=== PATIENT | male | born 1955 | race Caucasian/White ===

== ENCOUNTER 2020-05-21 09:58 | Outpatient (REF) | payer MEDICARE, OTHER, SELFPAY ==
--- NOTE | 2020-05-21 10:04 | US_ITS ---
EXAMINATION: US RETROPERITONEAL COMPLETE (RENAL) CLINICAL INFORMATION: Increased BUN and creatinine. COMPARISON: CT abdomen and pelvis 09/20/2012. X-ray abdomen KUB 06/12/2010 and 05/15/2010. Renal ultrasound 04/08/2010. Ultrasound abdomen 08/21/2008. TECHNIQUE: Real-time imaging of the kidneys and bladder. FINDINGS: RIGHT KIDNEY: 12.9 x 6.9 x 5.8 cm (SAG x AP x TRV). The kidney is normal in size, contour, and echogenicity. Renal cortical thickness is normal. No calculi or focal parenchymal lesions. No hydronephrosis. Scattered vascular calcifications seen in the lateral cortex of the kidney. LEFT KIDNEY: 10.3 x 5.2 x 5.6 cm (SAG x AP x TRV). The kidney is normal in size, contour, and echogenicity. Renal cortical thickness is normal. No calculi or focal parenchymal lesions. No hydronephrosis. There is partial nephrectomy changes. BLADDER: Well distended and normal. Bilateral ureteral jets are demonstrated. Prevoid bladder volume is 291 mL. Postvoid bladder volume is 19.0 mL. Prostate volume 91.2 mL. Difficulty visualizing prostate gland. US/US renal BI IMPRESSION: Partial left nephrectomy changes. There is no echogenic stone seen in either kidney. There is no hydronephrosis. Probable vascular calcifications in the lateral cortex right kidney.
--- NOTE | 2020-05-21 10:05 | US_ITS ---
EXAMINATION: US RETROPERITONEAL COMPLETE (RENAL) CLINICAL INFORMATION: Increased BUN and creatinine. COMPARISON: CT abdomen and pelvis 09/20/2012. X-ray abdomen KUB 06/12/2010 and 05/15/2010. Renal ultrasound 04/08/2010. Ultrasound abdomen 08/21/2008. TECHNIQUE: Real-time imaging of the kidneys and bladder. FINDINGS: RIGHT KIDNEY: 12.9 x 6.9 x 5.8 cm (SAG x AP x TRV). The kidney is normal in size, contour, and echogenicity. Renal cortical thickness is normal. No calculi or focal parenchymal lesions. No hydronephrosis. Scattered vascular calcifications seen in the lateral cortex of the kidney. LEFT KIDNEY: 10.3 x 5.2 x 5.6 cm (SAG x AP x TRV). The kidney is normal in size, contour, and echogenicity. Renal cortical thickness is normal. No calculi or focal parenchymal lesions. No hydronephrosis. There is partial nephrectomy changes. BLADDER: Well distended and normal. Bilateral ureteral jets are demonstrated. Prevoid bladder volume is 291 mL. Postvoid bladder volume is 19.0 mL. Prostate volume 91.2 mL. Difficulty visualizing prostate gland. US/US bladder IMPRESSION: Partial left nephrectomy changes. There is no echogenic stone seen in either kidney. There is no hydronephrosis. Probable vascular calcifications in the lateral cortex right kidney.
== END 2020-05-21 09:59 | disposition home or self-care (01) ==
LOC: HO.HMGCX 09:58
PROVIDERS: PCP Internal Medicine; Visit Provider Internal Medicine Nephrology
DX: R79.89 Other specified abnormal findings of blood chemistry (principal)
CPT/HCPCS: 76775; 76857

== ENCOUNTER 2021-01-23 06:13 | Day surgery (SDC) | payer MEDICARE, OTHER, SELFPAY ==
[2021-01-16 12:14] VITALS: BMI 41.6
--- NOTE | 2021-01-22 10:32 | P.CONAN_ITS ---
Documented by User: Crystal Betancur 01/22/21 10:33 HPI - Anesthesia Eval Consult details Narrative: 65yo M for Colonoscopy with Antibiotics (L SHERLYN 2017) [facility] Past Medical History Medical History Arthritis Back pain Elevated cholesterol Gout HTN (hypertension) Kidney stones TONY on CPAP Surgical History Surgical History History of cystoscopy History of left hip replacement History of lithotripsy History of partial nephrectomy History of surgery on right wrist Hx of arthroscopy of knee Hx of colonoscopy Hx of exploratory laparotomy Social History Social History Are you a primary assisted living care manager to a significant other at home: No Do you presently have visiting nurse or other home services: No Advance Directives: No Advance Directives Information Provided: No Advance Directives on File: No Recently lost weight without trying: No Eating poorly because of decreased appetite: No Nutrition Risks: No Nutritional Risk Meds Allergies Allergy/AdvReac Type Severity Reaction Status Date / Time No Known Allergies Allergy Unverified 01/16/21 12:10 [No Known Allergies*] Home Medications Medication Instructions Recorded Confirmed Last Taken Type acetaminophen [Tylenol] 650 mg PO Q6H PRN 01/16/21 01/16/21 Unknown History albuterol sulfate 2 puff INHALATION Q6H PRN 01/16/21 01/16/21 Unknown History allopurinol 300 mg PO DAILY 01/16/21 01/16/21 Unknown History diazepam 5 mg PO BID PRN 01/16/21 01/16/21 Unknown History lisinopril 20 mg PO DAILY 01/16/21 01/16/21 01/23/21 History nebivolol [Bystolic] 10 mg PO DAILY 01/16/21 01/16/21 01/23/21 History simvastatin 20 mg PO BEDTIME 01/16/21 01/16/21 Unknown History Exam Exam Date and Time: January 22, 2021 1032 Height,Weight and Vital Signs: Height 5 ft 6 in Weight 117.027 kg Assessment and Plan Assessment Anesthesia Assessment: Chart Reviewed Documented by User: Najma Guidry 01/23/21 07:33 [facility] Past Medical History Medical History Arthritis Back pain Elevated cholesterol Gout HTN (hypertension) Kidney stones TONY on CPAP Surgical History Surgical History History of cystoscopy History of left hip replacement History of lithotripsy History of partial nephrectomy History of surgery on right wrist Hx of arthroscopy of knee Hx of colonoscopy Hx of exploratory laparotomy Social History Social History Are you a primary assisted living care manager to a significant other at home: No Do you presently have visiting nurse or other home services: No Advance Directives: No Advance Directives Information Provided: No Advance Directives on File: No Recently lost weight without trying: No Eating poorly because of decreased appetite: No Nutrition Risks: No Nutritional Risk Meds Allergies Allergy/AdvReac Type Severity Reaction Status Date / Time No Known Allergies Allergy Unverified 01/16/21 12:10 [No Known Allergies*] Home Medications Medication Instructions Recorded Confirmed Last Taken Type acetaminophen [Tylenol] 650 mg PO Q6H PRN 01/16/21 01/16/21 Unknown History albuterol sulfate 2 puff INHALATION Q6H PRN 01/16/21 01/16/21 Unknown History allopurinol 300 mg PO DAILY 01/16/21 01/16/21 Unknown History diazepam 5 mg PO BID PRN 01/16/21 01/16/21 Unknown History lisinopril 20 mg PO DAILY 01/16/21 01/16/21 01/23/21 History nebivolol [Bystolic] 10 mg PO DAILY 01/16/21 01/16/21 01/23/21 History simvastatin 20 mg PO BEDTIME 01/16/21 01/16/21 Unknown History Exam Airway Mallampati Class: III (Large face, adipose around neck ) TM Dist: >3cm Neck ROM: Full Loose/Missing/Broken Teeth: No Heart: RRR Lungs: CTA Assessment and Plan Assessment Anesthesia Assessment: Anesthesia Plan Discussed and Chart Reviewed Final Anesthetic Review NPO: Yes ASA Class: III Final Preanesthetic Review: Meds/Allgs Chart Reviewed, Consent Obtained/Reviewed and Anes Risks/Benef Reviewed Patient Risk: Intermediate Procedure Risk: Low Anesthetic Plan Anesthetic Plan: MAC: Disposition: Standard PACU
[2021-01-23 06:23] VITALS: BP 152/76; PULSE 58; RESP 16; TEMP 36.4; O2SAT 96
[2021-01-23] MEDS: Ampicillin Sodium 2 GM in 0.9 % Sodium Chloride 100 ML IV (06:44)
[2021-01-23] MEDS: Lactated Ringers 1,000 ML 50 ML IVCONT (06:44)
[2021-01-23] MEDS: Gentamicin Sulfate/NaCl 80 MG/100 ML PIGGYBACK 100 MG IV (07:10)
--- NOTE | 2021-01-23 07:11 | PC.NURSE ---
OKAY TO GIVE FUTURE ANTIBIOTICS PER MD ORTIZ.
[2021-01-23 08:27] VITALS: BP 92/66; PULSE 55; RESP 18; TEMP 36.4; O2SAT 98
--- NOTE | 2021-01-23 08:31 | PM.OP ---
Brief Operative Note Date of Service: 01/23/21 Pre-op diagnosis: Screening Post-op diagnosis: other (Colon polyps) Procedure: Colonoscopy to the cecum and TI with biopsies and removal of polyps Surgeon: Jd Lewis Anesthesia: MAC Was an Document Controller used for this Procedure?: No Estimated blood loss (mL): 4.0 Pathology: other (A. Cecal polyp B. Transverse colon polyp C. Polyp at 20cm D. Rectal polyp) Condition: stable Disposition: PACU
[2021-01-23 08:42] VITALS: BP 117/55; PULSE 54; RESP 20; O2SAT 97
--- NOTE | 2021-01-23 11:18 | OP_ITS ---
SURGEON: Jd Lewis MD INDICATIONS: The patient presents for evaluation of colorectal cancer screening and personal history of tubular adenoma of the colon. Full consent has been obtained from him for this, including risks of bleeding and perforation. PREOPERATIVE DIAGNOSIS: POSTOPERATIVE DIAGNOSIS: PROCEDURE PERFORMED: Colonoscopy to the cecum and terminal ileum with biopsy and removal of polyps. ESTIMATED BLOOD LOSS: COMPLICATIONS: ANESTHESIA: Monitored anesthesia care. ASSISTANTS: SPECIMENS: PREOPERATIVE DIAGNOSES: Colorectal cancer screening and personal history of tubular adenoma of the colon. POSTOPERATIVE DIAGNOSES: Colorectal cancer screening and personal history of tubular adenoma of the colon, colon polyps, diverticulosis, internal and external hemorrhoids. DESCRIPTION OF PROCEDURE: The patient was placed in the left lateral decubitus position. The digital rectal exam revealed external hemorrhoids. The Olympus video pediatric colonoscope was entered into the rectum and advanced easily to the cecum. Once in the cecum, I did identify normal-appearing cecal pouch with appendiceal orifice, other than an approximately 4 mm polyp in the cecum, which was biopsied and completely removed with cold biopsy forceps. The terminal ileum was cannulated and appeared normal. The scope was withdrawn back in the colon. The remainder of the cecum appeared normal. The scope was slowly withdrawn assessing all mucosal surfaces carefully. Preparation was excellent. In the transverse colon, at 20 cm, and in the rectum, were flat less than 5 mm polyps, which were each biopsied and completely removed with cold biopsy forceps. I did not visualize any other polyps, colitis, nor angiodysplasia. There was a mild amount of sigmoid diverticulosis. There were also diverticula in the ascending colon. In the rectum, scope was retroflexed visualizing internal hemorrhoids, but no other pathology. The rectal mucosa appeared normal. The scope was straightened out and withdrawn from the patient. He tolerated the procedure well and was returned to recovery area in stable condition. IMPRESSION: 1. Colon polyps, status post biopsy and removal. 2. Diverticulosis. 3. Internal and external hemorrhoids. PLAN: The results of biopsy will be checked. I would recommend a repeat colonoscopy in 5 years for further screening and surveillance. He did receive preprocedure antibiotics in regard to his recent hip replacement and was given a prescription to use amoxicillin later today. MD AGUSTIN Rayo/MODL / [id number]
== END 2021-01-23 09:15 | disposition home or self-care (01) ==
PROVIDERS: PCP Internal Medicine; Visit Provider Internal Medicine
PROC: 0DJD8ZZ Inspection of Lower Intestinal Tract, Via Natural or Artificial Opening Endoscopic (ICD-10-PCS; CPT 45378; principal; 2021-01-23 07:30)
DX: Z12.11 Encounter for screening for malignant neoplasm of colon (principal); Z86.010 Personal history of colon polyps; D12.0 Benign neoplasm of cecum; D12.3 Benign neoplasm of transverse colon; K63.5 Polyp of colon; K62.1 Rectal polyp; K57.30 Diverticulosis of large intestine without perforation or abscess without bleeding; K64.8 Other hemorrhoids; I10 Essential (primary) hypertension; G47.33 Obstructive sleep apnea (adult) (pediatric); Z99.89 Dependence on other enabling machines and devices; Z79.899 Other long term (current) drug therapy; Z96.642 Presence of left artificial hip joint; Z90.5 Acquired absence of kidney
CPT/HCPCS: 45380; 88305; J0290; J1580; J2405; J2765

== ENCOUNTER → 2021-04-03 15:03 | Outpatient (BNVA) | payer MEDICARE, OTHER, SELFPAY | PROVIDERS: PCP Internal Medicine; Referring Provider Internal Medicine; Visit Provider Surgery | DX: L72.3 Sebaceous cyst (principal) | CPT/HCPCS: 99202 ==

== ENCOUNTER 2022-05-30 11:55 | Outpatient (REF) | payer MEDICARE, OTHER, SELFPAY ==
--- NOTE | ~2022-05-30 | XR_ITS ---
EXAMINATION: XR CHEST CLINICAL INFORMATION: Cough COMPARISON: 04/09/2010 TECHNIQUE: 2 views of the chest were obtained. FINDINGS: Normal symmetric lung volumes. No parenchymal consolidation. No pleural effusion. No pneumothorax. Cardiomediastinal silhouette and pulmonary vascularity are within normal limits. No acute osseous abnormalities. XR/XR chest 2V IMPRESSION: No acute findings
== END 2022-05-30 11:56 | disposition home or self-care (01) ==
LOC: HO.HMGCX 11:55
PROVIDERS: PCP Internal Medicine; Visit Provider Internal Medicine
DX: R05.9 Cough, unspecified (principal)
CPT/HCPCS: 71046

== ENCOUNTER 2023-12-24 08:40 | Outpatient (REF) | payer MEDICARE, OTHER, SELFPAY ==
--- NOTE | ~2023-12-24 | XR_ITS ---
EXAMINATION: XR HIP, RIGHT CLINICAL INFORMATION: Right hip pain COMPARISON: AP pelvis 02/16/2012 TECHNIQUE: Two views of the right hip. FINDINGS: No fracture. Alignment is anatomic. There is moderate narrowing of the joint space of the hip with inferior marginal osteophytes. There is an old healed fracture of the right superior and inferior pubic rami. There are hypertrophic bony changes of the right ilium likely related to previous bone grafting or trauma. XR/XR hip RT min 2V IMPRESSION: 1. Moderate osteoarthritis of the right hip. 2. Old healed fractures of the right superior and inferior pubic rami.
== END 2023-12-24 08:41 | disposition home or self-care (01) ==
LOC: HO.HMGCX 08:40
PROVIDERS: PCP Internal Medicine; Visit Provider Internal Medicine
DX: M25.551 Pain in right hip (principal)
CPT/HCPCS: 73502

== ENCOUNTER 2024-04-28 09:26 | Outpatient (REF) | payer MEDICARE, OTHER, SELFPAY ==
--- NOTE | ~2024-04-28 | XR_ITS ---
EXAMINATION: XR LUMBOSACRAL SPINE CLINICAL INFORMATION: Low back pain COMPARISON: Right hip December 24, 2023, AP pelvis 02/16/2012 TECHNIQUE: Three views of the lumbosacral spine. FINDINGS: Left total hip prosthesis partially imaged. Diffuse demineralization. Facet arthritis in the mid to lower lumbar spine. Atherosclerotic aortic calcifications. Surgical clips left midabdomen. Advanced multilevel lumbar spondylosis and multilevel loss of disc space height most marked at L4-L5 and XR/XR lumbar spine 2-3V IMPRESSION: Advanced multilevel lumbar spondylosis most marked at L4-L5. Electronically signed by: Zaira Damon MD 05/02/2024 11:09 AM EDT
== END 2024-04-28 09:27 | disposition home or self-care (01) ==
LOC: HO.HMGCX 09:26
PROVIDERS: PCP Internal Medicine; Visit Provider Internal Medicine
DX: M54.50 Low back pain, unspecified (principal)
CPT/HCPCS: 72100

== ENCOUNTER 2024-08-04 08:55 | Outpatient (REF) | payer MEDICARE, OTHER, SELFPAY ==
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
[2024-08-04 10:13] LABS: MANUAL DIFF FLAG NO
[2024-08-04 10:20] LABS: Basophils Percent Auto 0.6 % (0-2); Eosinophils Absolute Auto 0.2 X10*3/uL (0.0-0.4); Hematocrit 36.5 % (42.0-52.0); Hemoglobin 11.8 g/dl (14.0-18.0); Imm Gran Abs Auto 0.05 X10*3/uL (0.00-0.03); Imm Gran Pct Auto 0.8 % (0.0-0.4); Lymphocytes Absolute Auto 1.8 X10*3/uL (1.2-4.9); Lymphocytes Percent Auto 29.5 % (20-40); Mean Corpuscular HGB Conc 32.3 g/dl (31.0-36.0); Mean Corpuscular Hemoglobin 31.6 pg (27.0-33.0); Mean Corpuscular Volume 97.9 fL (80.0-98.0); Mean Platelet Volume 10.8 fL (9.4-12.4); Monocytes Absolute Auto 0.7 X10*3/uL (0.1-1.2); Monocytes Percent Auto 10.9 % (2-11); Neutrophils Absolute Auto 3.4 x10*3/uL (2.0-8.3); Neutrophils Percent Auto 55.2 % (45-73); Platelet Count 268 X10*3/uL (160-400); Red Blood Count 3.73 X10*6/uL (4.60-5.80); Red Cell Distribution Width 13.5 % (11.0-16.0); White Blood Count 6.2 X10*3/uL (4.8-10.8)
[2024-08-04 10:25] LABS: Estimated Average Glucose 108 mg/dL; Hemoglobin A1C 111.2443 umol/L; Hemoglobin A1c % 5.4 % (<6.0); Total Hemoglobin (HGBA1C) 3112.7384 umol/L
[2024-08-04 11:30] LABS: Alanine Aminotransferase 37 U/L (0-40); Anion Gap 12 (12-20); Aspartate Amino Transferase 35 U/L (5-37); Bilirubin Total 0.5 mg/dL (0.0-1.0); Blood Urea Nitrogen 19 mg/dL (9-16); Calcium 8.9 mg/dL (8.4-10.2); Carbon Dioxide 25 mmol/L (22-29); Chloride 110 mmol/L (96-108); Cholesterol 121 mg/dL (<200); Estimated Glomerular Filt Rate > 60; Glucose Fasting 111 mg/dL (60-99); HDL Cholesterol 33 mg/dL (>40); LDL Cholesterol Calculated 65 mg/dL (<100); Potassium 3.9 mmol/L (3.3-5.1); Sodium 143 mmol/L (135-145); Total Protein 6.7 g/dL (6.5-8.0); Triglycerides 116 mg/dL (<150)
[2024-08-04 12:26] LABS: Alkaline Phosphatase 84 U/L (39-117)
[2024-08-08 01:45] LABS: Testosterone, Total 244 ng/dL (250-1100)
== END 2024-08-04 08:56 | disposition home or self-care (01) ==
LOC: HO.HMGCLDS 08:55
PROVIDERS: PCP Internal Medicine; Visit Provider Internal Medicine
DX: R53.83 Other fatigue (principal); E11.9 Type 2 diabetes mellitus without complications; E78.00 Pure hypercholesterolemia, unspecified
CPT/HCPCS: 36415; 80053; 80061; 83036; 84403; 85025

== ENCOUNTER 2024-10-10 10:47 | Outpatient (AMB) | payer MEDICARE, OTHER, SELFPAY ==
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
--- OUTSIDE RECORDS SUMMARY | 2024-10-10 12:21 | XMS_ITS | Clinical Summary ---
Author Organization [facility] [address] [place] [address] Phone Care Team Providers Care Robotic Weld Technician Name Role Phone Fabio De La Garza MD Primary Care Provider Allergies No known active allergies Medications albuterol HFA (PROVENTIL HFA;VENTOLIN HFA) 108 (90 Base) MCG/ACT inhaler Inhale 2 puffs every 4 (four) hours Active Allopurinol 200 MG tablet Take 1 tablet by mouth 1 (one) time each day Active diazePAM (VALIUM) 5 MG tablet Take 1 tablet by mouth 3 (three) times a day Active simvastatin (ZOCOR) 20 MG tablet Take 1 tablet by mouth 1 (one) time each day Active sildenafil (VIAGRA) 100 MG tablet Take 100 mg by mouth 1 (one) time each day if needed 1 Active amoxicillin (AMOXIL) 500 MG capsule 1 Active lisinopril 20 MG tablet TAKE 1 TABLET BY MOUTH EVERY DAY 90 tablet 3 3 Active Additional Information Patient taking differently: 40 mg, Reported on 06/04/2023 hydrALAZINE 50 MG tablet Take 50 mg by mouth 3 Active loratadine (CLARITIN) 10 MG tablet Take 10 mg by mouth 1 (one) time each day Active Semaglutide (OZEMPIC, 0.25 OR 0.5 MG/DOSE, SC) Inject under the skin Active doxazosin (CARDURA) 4 MG tablet TAKE 1 TABLET BY MOUTH AT BED TIME 90 tablet 4 Active nebivolol (BYSTOLIC) 20 MG tablet TAKE 1 TABLET (20 MG TOTAL) BY MOUTH ONCE DAILY 90 tablet 3 5 Active Active Problems Problem Noted Date Diagnosed Date Chronic kidney disease, stage 2 (mild) 4 Screening for malignant neoplasm of colon 2021 Long-term current use of antiplatelet drug 05/29 Long-term current use of antibiotic 05/29/2022 History of adenomatous polyp of colon 05/29/2022 Encounter for other preprocedural examination Diverticulosis of sigmoid colon 05/29/2022 Stage 3a chronic kidney disease 01/02/2021 Chronic kidney disease due to benign hypertensio n 01/02/2021 Renal osteodystrophy 01/02/2021 Acute nontraumatic kidney injury 12/21/2020 Chronic kidney disease stage 1 12/21/2020 Essential hypertension 12/21/2020 Hydronephrosis 12/21/2020 Renal stone 12/21/2020 Hypertensive renal disease with renal failure Obesity 12/21/2020 Proteinuria 12/21/2020 Encounters Date Type Department Care Team Description 08/02/2024 Refill [facility] [address] [place] [address] Raymundo Paz MD from Last 3 Months Immunizations Name Administration Dates Next Due Influenza, Unspecified 05/09/2020 Tdap 02/23/2020 Family History Relation Status Comments Father Mother Social History Tobacco Use Types Packs/Day Years Used Date Smoking Tobacco: Never Smokeless Tobacco: Never Alcohol Use Standard Drinks/Week Comments Yes 0 (1 standard drink = 0.6 oz pure alcohol) Alcoholic Drinks/day: Occasional social drink Sex and Gender Information Value Date Recorded Sex Assigned at Not on file Legal Sex Male 5:03 PM EST Gender Identity Not on file Sexual Orientation Not on file Last Filed Vital Signs Vital Sign Reading Time Taken Comments Blood Pressure 139/64 01/04/2024 2:18 PM EDT Pulse 70 01/04/2024 2:18 PM EDT Temperature - - Respiratory Rate - - Oxygen Saturation 96% 01/04/2024 2:18 PM EDT Inhaled Oxygen Concentration - - Weight 123 kg (270 lb 9.6 oz) 01/04/2024 2:18 PM EDT Height - - Body Mass Index - - Plan of Treatment Upcoming Encounters Date Type Department Care Team (Late st Contact Info) Description 01/30/2025 2:15 PM EDT Office Visit [facility] [address] [place] [phone] Raymundo Paz MD [address] [facility] [address] [place] [id number] Health Maintenance Due Date Last Done Comments Pneumococcal Vaccine: 65+ Ye ars (1 of 2 - PCV) 1961 Colorectal Cancer Screening: Annual FOBT 2002 Colorectal Cancer Screening: Colonoscopy 2002 Colorectal Cancer Screening: Sigmoidoscopy 2002 Influenza Vaccine (#1) 2024 05/09/2020 Hepatitis B Vaccine Aged Out No longe r eligible based on patient's age to complete this topic Insurance [facility] MEDICARE UNICARE MEDICARE Care Teams Robotic Weld Technician Relationship Specialty Start Date End Date Fabio De La Garza MD [address] [place] [address] PCP - General Internal Medicine 07/15/21
--- OUTSIDE RECORDS SUMMARY | 2024-10-10 12:21 | XMS_ITS | Data Portability ---
Author Organization [facility], OFFICE Address [address] [facility] [address] [place] [phone] Assessment Encounter Date Assessment Date Assessment LastModified by Organization Details LastModified Time 08/12/2017 08/12/2017 We discussed the options related to his treatment. Jerry has advanced OA with complete loss of the cartilage space interval, asphericity, subchondral sclerosis and cyst formation with very significant stiffness and a severe limp. Left total hip arthroplasty is clearly the most reasonable treatment alternative at this point. We discussed the issues related to total hip arthroplasty in a lot of detail today including the preoperative process, the operative techniques, less invasive techniques, computer-assisted techniques, the types of implants, the types of bearings, and the perioperative risks. In addition, we discussed the typical hospitalization course following surgery and reasonable expectations for recovery, outcome, activity level, and long-term followup. He is interested in proceeding and we will begin to make arrangements. sbm Not available 08/12/2017 17:36:42 10/26/2017 10/26/2017 Jerry appears to be doing well following elective LTHR. His components appear stable. He has had two episodes of increased groin pain, both associated with active hip flexion. I've encouraged him to use two crutches and avoid active hip flexion against gravity until his next f/u appt. sbm Not available 10/26/2017 14:26:37 11/23/2017 11/23/2017 Jerry is progressin g well after elective LTHR. We plan to continue progression of motion, strength, weight bearing, and reasonable activities as tolerated. sbm Not available 11/23/2017 13:39:16 04/11/2024 04/11/2024 We discussed the issues related to his treatment. Mr. Burrows has radiographic evidence of end stage arthrosis of the right hip as demonstrated by severe joint space narrowing, subchondral sclerosis and periarticular osteophytes. He has a functional disability from the arthritis. Conservative therapy in the form of NSAIDs and flexibility and muscle strengthening exercises have been insufficiently helpful. Total hip arthroplasty is therefore appropriately indicated. We discussed the issues related to total hip arthroplasty in a lot of detail today including the preoperative process, the operative techniques, less invasive techniques, computer-assisted techniques, the types of implants, and the perioperative risks. In addition, we discussed the typical course following surgery and reasonable expectations for recovery, outcome, activity level, and long-term followup. He is interested in proceeding, and we will begin to make arrangements. This visit was conducted as a real-time telehealth interactive visit. He was identified and consented to this telehealth visit. I spent a total of 20 minutes during this encounter. Greater than 50% of the time was devoted to counseling and coordinating care. This included reviewing records and pertinent studies, discussing diagnostic evaluation and workup, planning therapeutic interventions, and formulating the future disposition of care. sbm Not available 04/11/2024 08:57:39 08/17/2024 08/17/2024 We discussed the issues related to his treatment. Mr. Burrows has radiographic evidence of end stage arthrosis of the right hip as demonstrated by severe joint space narrowing, subchondral sclerosis and periarticular osteophytes. His pain is reproduced by hip motion. He has a functional disability from the arthritis. Conservative therapy in the form of NSAIDs and flexibility and muscle strengthening exercises have been insufficiently helpful. Total hip arthroplasty is therefore appropriately indicated. We discussed the issues related to total hip arthroplasty in a lot of detail today including the preoperative process, the operative techniques, less invasive techniques, computer-assisted techniques, the types of implants, and the perioperative risks. In addition, we discussed the typical course following surgery and reasonable expectations for recovery, outcome, activity level, and long-term followup. He is interested in proceeding, and we will begin to make arrangements. sbm Not available 08/17/2024 15:06:10 Plan of Treatment Reminders Order Date Submit Date Provider Last Modified By Organization Details Last Modified Time Details Appointments None record ed. Lab None record ed. Referral None record ed. Procedures None record ed. Surgeries None record ed. Imaging None record ed. Medication Orders None record ed. Patient TargetsNo targets recorded. Patient InstructionsNo instructions recorded. Reason for Referral None Reported. Problems No Known Problems Procedures Surgical History Date Name Laterality Status Provider Name and Address Organization Details Recorded Time General Surgery completed Gera Singh MD [address], [place], [address], [place] - [facility] 08/12/2017 17:33:36 General Surgery completed Gera Singh MD [address], [place], [address], [place] - [facility] 08/12/2017 17:34:06 Knee Surgery completed Gera Singh MD [address], [place], [address], [place] [facility] 08/12/2017 17:34:25 Hip Surgery completed Gera Singh MD [address], [place], [address], [place] - [facility] 10/26/2017 14:23:31 Imaging Results None recorded. Procedure Notes None recorded. Medical Equipment None Reported. Allergies No known drug allergies Medications Name Sig Start Date Stop Date Status Note LastModified by Organization Details LastModified Time celecoxib 200 mg capsule Pre op: take 2 tablets the night before surgery and take 1 tablet the morning of surgery. Post op: take 1 tablet daily active Not Available Not Available No t Available amoxicillin 500 mg capsule TAKE 4 CAPSULES BY MOUTH 1 HOUR BEFORE DENTAL TREATMENT active Not Available Not Available No t Available hydrocodone 5 mg-acetamino phen 325 mg tablet TAKE 1 TABLET BY MOUTH EVERY 6 HOURS NEEDED FOR PAIN active Not Available Not Available No t Available lisinopril 20 mg tablet TAKE 1 TABLET BY MOUTH EVERY DAY active Not Available Not Available No t Available prednisone 20 mg tablet TAKE 3 TABS DAILY X3 DAYS THEN 2 TABS DAILY X3 DAYS THEN 1 TAB DAILY X3 DAYS active Not Available Not Available No t Available allopurinol 100 mg tablet TAKE 2 TABLETS BY MOUTH EVERY DAY active Not Available Not Available No t Available tramadol 50 mg tablet Take 1 tablet every 6 hours by oral route. active Not Available Not Available Not Available sildenafil 100 mg tablet TAKE 1 TABLET BY MOUTH EVERY DAY NEEDED APPROXIMATE LY 1 HOUR BEFORE SEXUAL ACTIVITY active Not Available Not Available No t Available amlodipine 10 mg tablet active Not Available Not Available Not Available simvastatin 20 mg tablet TAKE 1 TABLET BY MOUTH EVERY DAY active Not Available Not Available No t Available oseltamivir 75 mg capsule TAKE 1 CAPSULE BY MOUTH EVERY DAY FOR 7 DAYS active Not Available Not Available No t Available oxycodone 5 mg capsule Take 1-2 capsule(s) EVERY 4- 6 HOURS by oral route. 2017 active Not Available Not Available Not Avai lable doxazosin 4 mg tablet TAKE 1 TABLET BY MOUTH AT BED TIME active Not Available Not Available No t Available allopurinol 300 mg tablet active Not Available Not Available Not Available hydralazine 50 mg tablet TAKE 1 TABLET BY MOUTH TWICE A DAY active Not Available Not Available No t Available ibuprofen 600 mg tablet active Not Available Not Available Not Available albuterol sulfate HFA 90 mcg/actuatio n aerosol inhaler TAKE 2 PUFFS BY MOUTH EVERY 4 TO 6 HOURS NEEDED active Not Available Not Available No t Available lisinopril 40 mg tablet TAKE 1 TABLET BY MOUTH EVERY DAY active Not Available Not Available No t Available doxazosin 2 mg tablet TAKE 1 TABLET BY MOUTH AT BED TIME active Not Available Not Available No t Available amoxicillin 875 mg-potassium clavulanate 125 mg tablet TAKE 1 TABLET BY MOUTH EVERY 12 HOURS active Not Available Not Available No t Available oxycodone 5 mg tablet active Not Available Not Available No t Available Allergy Relief D-24hr 10 mg-240 mg tablet,exten ded release TAKE 1 TABLET EXTENDED RELEASE 24 HR ORAL DAILY IN THE MORNING active Not Available Not Available Not Available chlorhexidin e gluconate 0.12 % mouthwash SWISH AND SPIT WITH 10 ML 3 TIMES A DAY active Not Available Not Available Not Available hydrochlorot hiazide 12.5 mg tablet active Not Available Not Available No t Available Bystolic 10 mg tablet active Not Available Not Available No t Available nebivolol 20 mg tablet TAKE 1 TABLET BY MOUTH EVERY DAY active Not Available Not Available No t Available Eliquis 2.5 mg tablet Take 1 tablet(s) 2 TIMES A DAY by oral route for 30 days after surgery active Not Available Not Available No t Available Mounjaro 5 mg/0.5 mL subcutaneous pen injector INJECT 5 MG SUBCUTANEOU SLY ONE TIME PER WEEK active Not Available Not Available No t Available Mounjaro 2.5 mg/0.5 mL subcutaneous pen injector INJECT 2.5 MG SUBCUTANEOU SLY ONE TIME PER WEEK FOR 4 WEEKS active Not Available Not Available No t Available Ozempic 0.25 mg or 0.5 mg (2 mg/3 mL) subcutaneous pen injector INJECT 0.25MG SUBCUTANEOU SLY WEEKLY FOR 4 WEEKS active Not Available Not Available Not Available Vitals Date Recorded Body height Body mass index (BMI) Body weight Systolic blood pressure Diastolic blood pressure Provider Name and Address Organization Details Last Updated DateTime 08/12/2017 167.64 cm 38.7 kg/m2 250677.1 7 g 166 mm[Hg] 84 mm[Hg] Alicia Jones [place] - [facility] 8 16:31:54 Date Recorded Body height Body mass index (BMI) Body weight Systolic blood pressure Diastolic blood pressure Provider Name and Address Organization Details Last Updated DateTime 10/26/2017 167.64 cm 39.2 kg/m2 300589.9 5 g 150 mm[Hg] 73 mm[Hg] Alicia Jones [place] - [facility] 8 13:11:40 Date Recorded Body height Body mass index (BMI) Body weight Provider Name and Address Organization Details Last Updated DateTime 11/23/2017 167.64 cm 39.5 kg/m2 275545.13 g Alicia Jones [place] - [facility] 11/23/2017 12:07:21 Date Recorded Body height Body mass index (BMI) Body weight Systolic blood pressure Diastolic blood pressure Provider Name and Address Organization Details Last Updated DateTime 08/17/2024 167.64 cm 41.2 kg/m2 468284.0 5 g 148 mm[Hg] 86 mm[Hg] Alicia Jones [place] - [facility] 5 13:24:12 Social History Question Answer Notes LastModified by Organizat ion Details LastModified Time Tobacco Smoking Status Former Smoker Gera Singh MD [address] [place] [address],[facility] [address], [place], [address], [place] - [facility] 08/12/2017 17:32:27 What Was The Date Of Your Most Recent Tobacco Screening? 04/11/2024 [email or web address] Information not available 04/11/2024 Has Tobacco Cessation Counseling Been Provided? No Information not available 04/11/2024 Do You Or Have You Ever Used Any Other Forms Of Tobacco Or Nicotine? No [email or web address] Information not available 04/11/2024 Sex: Unknown Functional Status Question Answer Note LastModified by Organization D etails LastModified Time Are you able to care for yourself? Yes [email or web address] Information n ot available 04/11/2024 Mental Status None recorded. Family History Nothing Reported. Medical History Condition Response Coronary Artery Disease N Anxiety/Depression N Gout N Blood Transfusion N Hernia N COPD N Pacemaker N Orthotics N Arthritis N Blood Clot N Cancer N Stroke N High Cholesterol Y Liver Disease N Rheumatoid Arthritis N Kidney Disease N Heart Problems N Migraines N Thyroid Problems N Anemia N Ulcers N Heart Attack ([place]) N Diabetes N Bleeding Disorder N Seizures/Epilepsy N Tuberculosis N AIDS/HIV N Asthma N Peripheral Vascular Disease N Hepatitis N Pulmonary Embolism N Hypertension Y Osteoporosis N Past Encounters Encounter ID Performer Location Encounter Start Date Encounter Closed Date Diagnosis/Indication Diagnosis SNOMED-CT Code Diagnosis ICD10 Code Diagnosis Note [id number] Gera Signh MD OFFICE [address] [address] 08/12/2017 15:36:56 08/23/2017 15:09:43 [id number] Gera Singh MD OFFICE [address] [address] 10/26/2017 12:18:58 10/26/2017 15:39:01 [id number] Gera Singh MD OFFICE [address] [address] 11/23/2017 11:58:03 11/24/2017 17:00:49 [id number] Gera Singh MD [facility] [address] [place] [address] 04/11/2024 07:51:20 05/11/2024 16:35:13 [id number] Gera Singh MD OFFICE [address] [facility] [address] [address] 08/17/2024 12:40:59 08/24/2024 09:32:18 Health Concerns Section Related Observation LastModified by Organization Detai ls LastModified Time None Recorded Concern Status LastModified by Organization Details LastModified Time None Recorded Advance Directives Directive None Recorded Payers Encounter Date Sequence Insurance Name Policy Number Policy Montanez Covered Member ID Montanez Member ID Guarantor Name 08/12/2017 2 [employer] - [employer] [id number] [place] [id number] Edsteve [place]ord 10/26/2017 2 [facility] [employer] [id number] Edward [place]os [id number] Edward [place] 11/23/2017 2 [employer] - [employer] [id number] [place] [id number] Edward [place] 04/11/2024 2 [facility] [employer] [id number] Edward [place] [id number] Edward [place] 08/17/2024 2 [facility] [employer] [employer] [id number] Edward [place] [id number] Edward [place] 08/17/2024 1 MEDICARE B-NE: [id number] Espinoza Burrows [id number] Edsteve uBrrows Notes Date Note Type Note Provider Name and Address Organization Details Recorded Time 08/12/2017 text/html Hip(s) AthenaReported bypatient.Location:l eft; groin; thigh Severity:severe Alleviating Factors:rest; stretching Aggravating Factors:standing; walking; going from sit to stand Associated Symptoms:no weakness; no numbness; no tingling; no swelling; no redness; no warmth; no ecchymosis; no catching/locking; no popping/clicking; no buckling; no grinding; no instability; no radiation down leg; no drainage; no fever; no chills; no weight loss; no change in bowel/bladder habits Prior Imaging:x ray Previous PT:did not help Gera Singh MD [address] [place] [address],[facility] [address], [place], [address], [place] - [facility] 08/12/2017 17:36:47 10/26/2017 text/html Hip(s) AthenaReported bypatient.Location:l eft; groin Severity:severe Alleviating Factors:rest; stretching Aggravating Factors:active hip flexion Associated Symptoms:no weakness; no numbness; no tingling; no swelling; no redness; no warmth; no ecchymosis; no catching/locking; no popping/clicking; no buckling; no grinding; no instability; no radiation down leg; no drainage; no fever; no chills; no weight loss; no change in bowel/bladder habits Prior Imaging:x ray; CT scan Previous PT:helped significantly Gera Singh MD [address], [place], [address], [facility] - Comp-Assistd and nsctive Surgry 10/26/2017 14:27:21 11/23/2017 text/html Hip(s) AthenaReported bypatient.Location:l eft; groin Severity:slight Alleviating Factors:ice; stretching Aggravating Factors:exercise Associated Symptoms:no weakness; no numbness; no tingling; no swelling; no redness; no warmth; no ecchymosis; no catching/locking; no popping/clicking; no buckling; no grinding; no instability; no radiation down leg; no drainage; no fever; no chills; no weight loss; no change in bowel/bladder habits Prior Imaging:x ray; CT scan Previous PT:helped significantly Gera Singh MD [address],[facility] [address], [place], [address], [facility] - Comp-Assistd and nstrctive Surgry 11/23/2017 13:39:20 04/11/2024 text/html Hip(s) AthenaReported bypatient.Location:r ight; groin; thigh; buttocks Severity:moderate Alleviating Factors:rest Aggravating Factors:walking; weightbearing; exercise; going from sit to stand Associated Symptoms:no weakness; no numbness; no tingling; no swelling; no redness; no warmth; no ecchymosis; no catching/locking; no popping/clicking; no buckling; no grinding; no instability; no radiation down leg; no drainage; no fever; no chills; no weight loss; no change in bowel/bladder habits Prior Imaging:x ray; CT scan Previous PT:did not help Gera Singh MD [address], [place], [address], [place] - [facility] 04/11/2024 08:57:42 08/17/2024 text/html Hip(s) AthenaReported bypatient.Location:r ight; groin; thigh; buttocks Severity:moderate Alleviating Factors:rest Aggravating Factors:walking; weightbearing; exercise; going from sit to stand Associated Symptoms:no weakness; no numbness; no tingling; no swelling; no redness; no warmth; no ecchymosis; no catching/locking; no popping/clicking; no buckling; no grinding; no instability; no radiation down leg; no drainage; no fever; no chills; no weight loss; no change in bowel/bladder habits Prior Imaging:x ray; CT scan Previous PT:did not help Gera Singh MD [address], [place], [address], [place] - [facility] 08/17/2024 15:06:14
--- OUTSIDE RECORDS SUMMARY | 2024-10-10 12:21 | XMS_ITS | Encounter Summary ---
Author Organization [facility] Address [address] [facility] [address] [address] [place] [address] Phone Care Team Providers Care Glass Cutter Hand Name Role Phone Fabio De La Garza MD Primary Care Provider [phone] Encounter Details Date Type Department Care Team (Late st Contact Info) Description 11/11/2022 Telephone [facility] [address] [facility] [address] [place] [address] Yun Valdovinos Social History Tobacco Use Types Packs/Day Years [...] on file Sexual Orientation Not on file documented as of this encounter Miscellaneous Notes * Telephone Encounter - Yun Valdovinos - 11/11/2022 1:12 PM EDT Ok, thank you. * Telephone Encounter - Yun Valdovinos - 11/11/2022 9:52 AM EDT Pt rescheduled his 11/13/22 telehealth appointment he is booked for 02/09/23, he is requesting thatthis appointment be a telehealth appointment as well, please advise. Please leave voicemail if unable to contact. documented in this encounter Plan of Treatment Upcoming Encounters Date Type Department Care Team (Late st Contact Info) Description 01/30/2025 2:15 PM EDT Office Visit [facility] [address] [place], [place] [address] Raymundo Paz MD [address] [place] [address] documented as of this encounter Procedures Procedure Name Priority Date/Time Associated Diagnosis Comments PROTEIN / CREATININE RATIO, URINE Routine 11/18/2022 10:09 AM EDT URINE ALBUMIN / CREATININE RATIO Routine 11/18/2022 10:09 AM EDT VITAMIN D 25 HYDROXY Routine 11/18/2022 10:09 AM EDT URINALYSIS WITH MICROSCOPIC Routine 11/18/2022 10:09 AM EDT CBC Routine 11/18/2022 10:09 AM EDT URINE CULTURE Routine 11/18/2022 10:09 AM EDT PTH, INTACT Routine 11/18/2022 10:09 AM EDT MAGNESIUM Routine 11/18/2022 10:09 AM EDT ALBUMIN Routine 11/18/2022 10:09 AM EDT RENAL FUNCTION PANEL Routine 11/18/2022 10:09 AM EDT documented in this encounter Results * Urine Culture (11/18/2022 10:09 AM EDT) Specimen Description See Comment See Comment See Comment See Comment [facility] Comment: CLEAN CATCH (URINE) NONE NO GROWTH FINAL 11/19/2022 Testing performed or reported by [facility], a [facility] of [facility], [place] [address] Michael Henriquez MD, Anti Tank Missileman CLIA# [id number] 11/18/2022 10:0 9 AM EDT 11/18/2022 10:43 AM EDT Result [facility] Raymundo aPz MD LAB URINE ORDERABLES Final Re sult [facility] * (ABNORMAL) Vitamin D 25 Hydroxy (11/18/2022 10:09 AM EDT) Vitamin D, 25-Hydroxy 18.6(L) (20-50) NG/ML [facility] Comment: Testing performed or reported by [facility], a [facility] of [facility], [address] [place] [address] Alejandra Rhodes MD, Anti Tank Missileman [facility]# [id number] 11/18/2022 10:0 9 AM EDT 11/18/2022 10:43 AM EDT Result [facility] Raymundo Paz MD LAB BLOOD ORDERABLES Final Re sult [facility] * (ABNORMAL) Urine Albumin / Creatinine Ratio (11/18/2022 10:09 AM EDT) Urine Microalbumin 518.6(H) (<20) MG/L [facility] Comment: The urine microalbumin test is designed to monitor renal function. When screening for Bence Luz proteinuria, urine electrophoresis is recommended. Microalbumin/Creati nine Ratio 427.5(H) (0-20) MG/GM [facility] Microalb/Creat Ratio 121.3 MG/DL [facility] Comment: Testing performed or reported by [facility], a [facility], [address] [place] [address] Alejandra Rhodes MD, Anti Tank Missileman [place]# [id number] 11/18/2022 10:0 9 AM EDT 11/18/2022 10:43 AM EDT Result [facility] Raymundo Paz MD LAB URINE ORDERABLES Final Re sult Performing Organization Address [facility] Co de Phone Number [facility] * (ABNORMAL) Protein, Total, Random Urine w/Creatinine (Protein/Creat Ratio) (11/18/2022 10:09 AM EDT) Pathologist [facility] Protein/Creatine Ratio 0.56(H) (0-0.2) [facility] Protein, Urine 68 MG/DL [facility] Comment: The urine microalbumin test is designed to monitor renal function. When screening for Bence Luz proteinuria, urine electrophoresis is recommended. Creatinine, Urine 121.3 MG/DL [facility] Comment: Testing performed or reported by [facility], a [facility], [address] [place] [address] Alejandra Rhodes MD, Anti Tank Missileman [facility]# [id number] 11/18/2022 10:0 9 AM EDT 11/18/2022 10:43 AM EDT Raymundo Paz MD LAB URINE ORDERABLES Final Re sult Performing Organization Address [facility] de Phone Number [facility] * (ABNORMAL) Renal Function Panel (11/18/2022 10:09 AM EDT) Pathologist [facility] Glucose 116(H) (70-99) MG/DL [facility] BUN 25(H) (8-23) MG/DL [facility] Creatinine 1.3(H) (0.7-1.2) MG/DL [facility] Sodium 141 (133-145) MMOL/L [facility] Potassium 4.8 (3.6-5.2) MMOL/L [facility] Chloride 107 (98-107) MMOL/L [facility] Bicarbonate (CO2) 23 (22-29) MMOL/L [facility] Anion Gap 11 (4-17) [facility] Albumin 4.4 (3.4-4.8) GM/DL [facility] Calcium 9.4 (8.6-10.5) MG/DL [facility] Phosphorus, Serum 3.6 (2.5-4.5) MG/DL [facility] Est GFR Non 60 ML/MIN/1.7 3 M2 [facility] Comment: Creatinine based estimated glomerular filtration (eGFR) in adults is calculated using the National [employer] recommended 2020 CKD-EPI equation. Estimates GFR from serum creatinine, age and sex. Testing performed or reported by [facility], a Service of [address] [address] Alejandra Rhodes MD, Anti Tank Missileman CLIA# [id number] 11/18/2022 10:0 9 AM EDT 11/18/2022 10:43 AM EDT Raymundo Paz MD LAB BLOOD ORDERABLES Final Re sult Performing Organization Address [facility] de Phone Number [facility] * Magnesium (11/18/2022 10:09 AM EDT) Magnesium 1.9 (1.6-2.3) mg/dL [facility] Comment: Testing performed or reported by [facility], a Service of [address] [address] Alejandra Rhodes MD, Anti Tank Missileman [place]# [id number] 11/18/2022 10:0 9 AM EDT 11/18/2022 10:43 AM EDT Raymundo Paz MD LAB BLOOD ORDERABLES Final Re sult Performing Organization Address [facility] de Phone Number [facility] * Albumin (11/18/2022 10:09 AM EDT) Albumin 4.4 (3.4-4.8) GM/DL [facility] Comment: Testing performed or reported by [facility], a Service of [address] [address] Alejandra Rhodes MD, Anti Tank Missileman CLIA# [id number] 11/18/2022 10:0 9 AM EDT 11/18/2022 10:43 AM EDT us Raymundo Paz MD LAB BLOOD ORDERABLES Final Re sult Performing Organization Address [facility] de Phone Number [facility] * (ABNORMAL) Urinalysis with microscopic (11/18/2022 10:09 AM EDT) Appearance LIGHT YELLOW [facility] Comment:CLEAR Specific [place] 1.017 (1.002-1. 030) [facility] pH Urine 6.0 (5.0-8.0) [facility] Albumin, Urine 1+(A) (NEG) [facility] Glucose, Ur NEGATIVE (NEG) [facility] Ketones, Urine NEGATIVE (NEG) [facility] Bilirubin Urine NEGATIVE (NEG) [facility] Hemoglobin Presence in Urine NEGATIVE (NEG) [facility] Nitrite, Urine NEGATIVE (NEG) [facility] Leukocyte Esterase Urine NEGATIVE (NEG) [facility] Urobilinogen Urine NORMAL (NORM) MG/DL [facility] WBC, Urine 1 (0-5) /HPF [facility] RBC, Urine 1 (0-3) /HPF [facility] Mucus, Urine SLIGHT /LPF [facility] Squamous Epithelial, Urine 1 (0-8) /HPF [facility] Comment: Testing performed or reported by [facility], [facility], [address] [place] [address] Alejandra Rhodes MD, Anti Tank Missileman IA# [id number] 11/18/2022 10:0 9 AM EDT 11/18/2022 10:43 AM EDT Result [facility] Raymundo Paz MD LAB URINE ORDERABLES Final Re sult Performing Organization Address [facility] de Phone Number [facility] * PTH, Intact (11/18/2022 10:09 AM EDT) Pathologist [facility] PTH, Intact 56 (15-65) PG/ML [facility] Comment: Testing performed or reported by [facility], [facility], [address] [place] [address] Alejandra Rhodes MD, Anti Tank Missileman CLIA# [id number] 11/18/2022 10:0 9 AM EDT 11/18/2022 10:43 AM EDT Raymundo Paz MD LAB BLOOD ORDERABLES Final Re sult Performing Organization Address [facility]/ZIP Co de Phone Number [facility] * (ABNORMAL) CBC (11/18/2022 10:09 AM EDT) White Blood Cells 7.2 (4.0-11.0) K/MM3 [facility] RBC 3.83(L) (4.70-6.10 ) M/MM3 [facility] Hgb 12.3(L) (13.7-17.1 ) GM/DL [facility] Hematocrit 38.8(L) (40.5-50.0 ) % [facility] MCV 101.3(H) (80.0-94.0 ) FL [facility] MCH 32.1 (27.0-34.0 ) PG [facility] MCHC 31.7(L) (33.0-37.0 ) g/dL [facility] Platelets 200 (150-460) K/MM3 [facility] RDW-SD 48.8(H) (<47.0) FL [facility] MPV 11.6 (9.4-12.4) FL [facility] nRBC Count 0.0 #/100 WBC'S [facility] NRBC Absolute 0.0 K/MM3 [facility] Comment: Testing performed or reported by [facility], [facility], [address] [place] [address] Alejandra Rhodes MD, Anti Tank Missileman [facility]# [id number] 11/18/2022 10:0 9 AM EDT 11/18/2022 10:43 AM EDT us Raymundo Paz MD LAB BLOOD ORDERABLES Final Re sult [facility] documented in this encounter Visit Diagnoses Not on filedocumented in this encounter Care Teams Glass Cutter Hand Relationship Specialty Start Date End Date Fabio De La Garza MD [address] [place] [address] PCP - General Internal Medicine 07/15/21 documented as of this encounter
== END 2024-10-10 12:37 | disposition home or self-care (01) ==
LOC: HO.HUSH 10:47
PROVIDERS: PCP Internal Medicine; Visit Provider Urology
DX: Z13.9 Encounter for screening, unspecified (principal)

== ENCOUNTER → 2024-10-10 10:47 | Outpatient (BNVA) | payer MEDICARE, OTHER, SELFPAY | PROVIDERS: PCP Internal Medicine; Visit Provider Urology | DX: N52.9 Male erectile dysfunction, unspecified (principal); R79.89 Other specified abnormal findings of blood chemistry; N18.30 Chronic kidney disease, stage 3 unspecified; Z87.442 Personal history of urinary calculi | CPT/HCPCS: 81003; 99202 ==

== ENCOUNTER 2024-11-24 08:57 | Outpatient (REF) | payer MEDICARE, OTHER, SELFPAY ==
--- NOTE | ~2024-11-24 | US_ITS ---
CLINICAL HISTORY: Z87.442 - Personal history of urinary calculi US Renal Comparison: None Findings: Right kidney normal size and echotexture, 12.8 cm length. Left kidney normal size and echotexture, 11.6 cm length. No hydronephrosis of either kidney. Normal color Doppler IMPRESSION: 1. Normal kidneys. This document has been electronically signed by: Bhanu Hunter MD on 11/25/2024 08:51:29
--- OUTSIDE RECORDS SUMMARY | 2024-11-24 09:26 | XMS_ITS | Data Portability ---
Author Organization [facility] [facility], OFFICE Address [address] [facility] [address] [place] [address] Assessment Encounter Date Assessment Date Assessment LastModified [...] Singh MD [address], [place], [address], [place] - Comp-Assistd and Rcnstrctive Surgry 08/12/2017 17:33:36 General Surgery completed Gera Singh MD [address], [place], [address], [place] - Comp-Assistd and Rcnstrctive Surgry 08/12/2017 17:34:06 Knee Surgery completed Gera Singh MD [address], [place], [address], [place] - Comp-Assistd and Rcnstrctive Surgry 08/12/2017 17:34:25 Hip Surgery completed Gera Singh MD [address], [place], [address], [place] - Comp-Assistd and Rcnstrctive Surgry 10/26/2017 [...] Updated DateTime 08/12/2017 167.64 cm 38.7 kg/m2 087511.1 7 g 166 mm[Hg] 84 mm[Hg] Alicia Jones [place] - Comp-Assistd and Rcnstrctive Surgry 8 16:31:54 Date Recorded Body height Body mass index (BMI) Body weight Systolic blood pressure Diastolic blood pressure Provider Name and Address Organization Details Last Updated DateTime 10/26/2017 167.64 cm 39.2 kg/m2 373571.9 5 g 150 mm[Hg] 73 mm[Hg] Alicia Jones [place] - Comp-Assistd and Rcnstrctive Surgry 8 13:11:40 Date Recorded Body height Body mass index (BMI) Body weight Provider Name and Address Organization Details Last Updated DateTime 11/23/2017 167.64 cm 39.5 kg/m2 690777.13 g Alicia Jones [place] - Comp-Assistd and Rcnstrctive Surgry 11/23/2017 12:07:21 Date Recorded Body height Body mass index (BMI) Body weight Systolic blood pressure Diastolic blood pressure Provider Name and Address Organization Details Last Updated DateTime 08/17/2024 167.64 cm 41.2 kg/m2 645884.0 5 g 148 mm[Hg] 86 mm[Hg] Alicia Jones [place] - Comp-Assistd and Rcnstrctive Surgry 5 13:24:12 Social History Question Answer Notes LastModified by Organizat ion Details LastModified Time Tobacco Smoking Status Former Smoker Gera Singh MD [address] [place] [address],[facility] [address], [place], [address], [place] - Comp-Assistd and Rcnstrctive Surgry 08/12/2017 17:32:27 What Was The Date Of Your Most Recent Tobacco Screening? 04/11/2024 [email or web address] Information not available 04/11/2024 Has Tobacco Cessation Counseling Been Provided? No [email or web address] Information not available 04/11/2024 Do You Or Have You Ever Used Any Other Forms Of Tobacco Or Nicotine? No [email or web address] Information not available 04/11/2024 Sex: Unknown Functional Status Question Answer Note LastModified by Organization D etails LastModified Time Are you able to care for yourself? Yes [email or web address] Information n ot available 04/11/2024 Mental Status None recorded. Family History Nothing Reported. Medical History Condition Response Heart Problems N Coronary Artery Disease N Anxiety/Depression N Gout N Blood Transfusion N Hernia N Migraines N Thyroid Problems N COPD N Pacemaker N Anemia N Ulcers N Heart Attack (ND) N Diabetes N Bleeding Disorder N Orthotics N Arthritis N Seizures/Epilepsy N Blood Clot N Tuberculosis N AIDS/HIV N Cancer N Stroke N Asthma N Peripheral Vascular Disease N High Cholesterol Y Hepatitis N Liver Disease N Rheumatoid Arthritis N Pulmonary Embolism N Hypertension Y Osteoporosis N Kidney Disease N Past Encounters Encounter ID Performer Location Encounter Start Date Encounter Closed Date Diagnosis/Indication Diagnosis SNOMED-CT Code Diagnosis ICD10 Code Diagnosis Note [id number] Gera Singh MD OFFICE [address] [address] 08/12/2017 15:36:56 08/23/2017 15:09:43 [id number] Gera Singh MD OFFICE [address] [facility] [address] [address] 10/26/2017 12:18:58 10/26/2017 15:39:01 [id number] Gera Singh MD OFFICE [address] [address] 11/23/2017 11:58:03 11/24/2017 17:00:49 [id number] Gera Singh MD [facility] [address] [place] [address] 04/11/2024 07:51:20 05/11/2024 16:35:13 [id number] Gera Singh MD OFFICE [address] [facility] [address] [address] 08/17/2024 12:40:59 08/24/2024 09:32:18 Health Concerns Section Related Observation LastModified by Organization Detai ls LastModified Time None Recorded Concern Status LastModified by Organization Details LastModified Time None Recorded Advance Directives Directive None Recorded Payers Encounter Date Sequence Insurance Name Policy Number Policy Montanez Covered Member ID Montanez Member ID Guarantor Name 08/12/2017 2 [employer] [id number] Edward Paris [id number] Edsteve Brownord 10/26/2017 [facility] [id number] Edward Markos [id number] Edward Paris 11/23/2017 2 [employer] - [employer] [id number] Edward Paris [id number] Edward Markos 04/11/2024 2 [facility] [employer] [id number] Edward Markos [id number] Edward Markos 08/17/2024 2 [facility] [employer] [id number] Edward Paris [id number] Edward Markos 08/17/2024 1 MEDICARE B-UT: [employer] Espinoza Burrows [id number] Edsteve Burrows Notes Date Note Type Note Provider Name [...] Previous PT:did not help Gera Singh MD [address] [place] [address],[facility] [address], [place], [address], [place] - Comp-Assistd and Rcnstrctive Surgry 08/12/2017 [...] Gera Singh MD [address], [place], [address], [facility] - Comp-Assistd and nsctive [...] PT:helped significantly Gera Singh MD [address],[facility] [address], [place], [address], [facility] - Comp-Assistd and nstrctive [...] Gera Singh MD [address], [place], [address], [place] - Comp-Assistd and Rcnstrctive Surgry 04/11/2024 [...] Gera Singh MD [address], [place], [address], [place] - Comp-Assistd and Rcnstrctive Surgry 08/17/2024 15:06:14
--- OUTSIDE RECORDS SUMMARY | 2024-11-24 09:26 | XMS_ITS | Encounter Summary ---
Author Organization [facility] Address [address] [address] Phone Care Team Providers Care Concrete Smoother Name Role Phone Fabio De La Garza MD Primary Care Provider [phone] Encounter Details Date Type Department Care Team (Late st Contact Info) Description 11/23/2024 Orders Only [facility] [address] [address] Raymundo Paz MD [address] [address] Chronic kidney disease, stage 4 (severe) (HCC) (Primary Dx); Anemia in chronic kidney disease; Hyperkalemia; Hypertension Social History Tobacco Use Types Packs/Day Years [...] on file documented as of this encounter Plan of Treatment Upcoming Encounters Date Type Department Care Team (Late st Contact Info) Description 01/30/2025 2:15 PM EDT Office Visit [facility] [address] [place] [address] Raymundo Paz MD [address] [address] Scheduled Orders Name Type Priority Associated Diagnoses Orde r Schedule Comprehensive Metabolic Panel Lab Routine Chronic kidney disease, stage 4 (severe) (HCC) Anemia in chronic kidney disease Hyperkalemia Hypertension Expected: 11/23/2024, Expires: 12/23/2025 Protein, Total, Random Urine w/Creatinine (Protein/Creat Ratio) Lab Routine Chronic kidney disease, stage 4 (severe) (HCC) Anemia in chronic kidney disease Hyperkalemia Hypertension Expected: 11/23/2024, Expires: 12/23/2025 CBC and Differential Lab Routine Chronic kidney disease, stage 4 (severe) (HCC) Anemia in chronic kidney disease Hyperkalemia Hypertension Expected: 11/23/2024, Expires: 12/23/2025 Iron Panel (Fe, TIBC, TSAT) Lab Routine Chronic kidney disease, stage 4 (severe) (HCC) Anemia in chronic kidney disease Hyperkalemia Hypertension Expected: 11/23/2024, Expires: 12/23/2025 Ferritin Lab Routine Chronic kidney disease, stage 4 (severe) (HCC) Anemia in chronic kidney disease Hyperkalemia Hypertension Expected: 11/23/2024, Expires: 12/23/2025 Vitamin D 25 Hydroxy Lab Routine Chronic kidney disease, stage 4 (severe) (HCC) Anemia in chronic kidney disease Hyperkalemia Hypertension Expected: 11/23/2024, Expires: 12/23/2025 documented as of this encounter Visit Diagnoses Diagnosis Chronic kidney disease, stage 4 (severe) (HCC)- Primary Anemia in chronic kidney disease Hyperkalemia Hypertension documented in this encounter Care Teams Concrete Smoother Relationship Specialty Start Date End Date Fabio De La Garza MD [address] [place] [address] PCP - General Internal Medicine 07/15/21 documented as of this encounter
--- OUTSIDE RECORDS SUMMARY | 2024-11-24 09:26 | XMS_ITS | Clinical Summary ---
Author Organization [facility] [address] [place] [address] Phone Care Team Providers Care Research Laboratory Manager Name Role Phone Fabio De La Garza MD Primary Care Provider [phone] Allergies No known active allergies Medications albuterol [...] 1 (one) time each day if needed 11/09/19 21 Active amoxicillin (AMOXIL) 500 MG capsule 12/27/19 21 Active lisinopril 20 MG tablet TAKE 1 TABLET BY MOUTH EVERY DAY 90 tablet 3 05/05/20 23 Active Additional Information Patient taking differently: 40 mg, Reported on 06/04/2023 hydrALAZINE 50 MG tablet Take 50 mg by mouth 03/24/20 23 Active loratadine (CLARITIN) 10 MG tablet Take 10 mg by mouth 1 (one) time each day Active Semaglutide (OZEMPIC, 0.25 OR 0.5 MG/DOSE, SC) Inject under the skin Active nebivolol (BYSTOLIC) 20 MG tablet TAKE 1 TABLET (20 MG TOTAL) BY MOUTH ONCE DAILY 90 tablet 3 08/02/19 25 Active doxazosin (CARDURA) 4 MG tablet TAKE 1 TABLET BY MOUTH AT BEDTIME 90 tablet 11/17/19 25 Active doxazosin (CARDURA) 4 MG tablet TAKE 1 TABLET BY MOUTH AT BED TIME 90 tablet 07/02/20 24 025 Discontinued Active Problems Problem Noted Date Diagnosed Date [...] Encounters Date Type Department Care Team Description 11/23/2024 Orders Only [facility] [address] [place] [address] [address] [place] [address] Raymundo Paz MD Chronic kidney disease, stage 4 (severe) (HCC) (Primary Dx); Anemia in chronic kidney disease; Hyperkalemia; Hypertension 11/15/2024 Refill [facility] [address] [place] [address] Raymundo Paz MD from Last 3 Months Immunizations Immunization Administration Dates Next Due Influenza, Unspecified 05/09/2020 [...] Visit [facility] [address] [place] [address] Raymundo Paz MD [address] [facility] [address] [place] [address] Health Maintenance Due Date Last Done Comments Pneumococcal Vaccine: 50+ Ye ars (1 of 2 - PCV) [birth year]/1972 Colorectal Cancer Screening: Annual FOBT 2002 Colorectal Cancer Screening: Colonoscopy 2002 Colorectal Cancer Screening: Sigmoidoscopy 2002 Influenza Vaccine (Season Ended) 2025 05/09/20 Hepatitis B Vaccine Aged Out No longe r eligible based on patient's age to complete this topic Insurance , [facility] [address] [place] [address] [facility] , [facility] [address] [place] [address] [place] [address] Medicare Care Teams Research Laboratory Manager Relationship Specialty Start Date End Date Fabio De La Garza MD [address] [place] [address] PCP - General Internal Medicine 07/15/21
--- OUTSIDE RECORDS SUMMARY | 2024-11-24 09:26 | XMS_ITS | Encounter Summary ---
Author Organization [facility] Address [address] [facility] [address] [place] [address] Phone Care Team Providers Care Warehouse Packer Name Role Phone Fabio De La Garza MD Primary Care Provider [phone] Encounter Details Date Type Department Care Team (Late st Contact Info) Description 11/11/2022 Telephone [facility] [address] [facility] [address] [place] [address] Yun Valdovinos Social History Tobacco [...] Visit [facility] [address] [place], [place] [address] Raymundo Paz MD [address] [place] [address] documented as of this encounter [...] Comment See Comment See Comment See Comment [facility] Comment: CLEAN CATCH (URINE) NONE NO GROWTH FINAL 11/19/2022 Testing performed or reported by [facility], a Service of [facility], [place] [address] Michael Henriquez MD, [place] CLIA# [id number] 11/18/2022 10:0 9 AM EDT 11/18/2022 10:43 AM EDT Result [facility] Raymundo Paz MD LAB URINE ORDERABLES Final Re sult [facility] * (ABNORMAL) Vitamin D 25 Hydroxy (11/18/2022 10:09 AM EDT) Vitamin D, 25-Hydroxy 18.6(L) (20-50) NG/ML [facility] Comment: Testing performed or reported by [facility], a Service of [facility], [address] [place] [address] Alejandra Rhodes MD, [place] [facility]# [id number] 11/18/2022 10:0 9 AM EDT 11/18/2022 10:43 AM EDT Result [facility] Raymundo Paz MD LAB BLOOD ORDERABLES Final Re sult [facility] * (ABNORMAL) Urine Albumin / Creatinine Ratio (11/18/2022 10:09 AM EDT) Urine Microalbumin 518.6(H) (<20) MG/L [facility] Comment: The urine microalbumin test is designed to monitor renal function. When screening for Bence Luz proteinuria, urine electrophoresis is recommended. Microalbumin/Creati nine Ratio 427.5(H) (0-20) MG/GM [facility] Microalb/Creat Ratio 121.3 MG/DL [facility] Comment: Testing performed or reported by [facility], a Service of [facility], [address] [place] [address] Alejandra Rhodes MD, [place]# [id number] 11/18/2022 10:0 9 AM EDT 11/18/2022 10:43 AM EDT Result [facility] Raymundo Paz MD LAB URINE ORDERABLES Final Re sult Performing Organization Address [facility] Co de Phone Number [facility] * (ABNORMAL) Protein, Total, Random Urine w/Creatinine (Protein/Creat Ratio) (11/18/2022 10:09 AM EDT) Pathologist [facility] Protein/Creatine Ratio 0.56(H) (0-0.2) [facility] Protein, Urine 68 MG/DL [facility] Comment: The urine microalbumin test is designed to monitor renal function. When screening for Bence Luz proteinuria, urine electrophoresis is recommended. Creatinine, Urine 121.3 MG/DL [facility] Comment: Testing performed or reported by [facility], a Service of [facility], [address] [place] [address] Alejandra Rhodes MD, [place] [facility]# [id number] 11/18/2022 10:0 9 AM EDT 11/18/2022 10:43 AM EDT Raymundo Paz MD LAB URINE ORDERABLES Final Re sult Performing Organization Address [facility] de Phone Number [facility] * (ABNORMAL) Renal Function Panel (11/18/2022 10:09 AM EDT) Pathologist [facility] Glucose 116(H) (70-99) MG/DL [facility] BUN 25(H) (8-23) MG/DL [facility] Creatinine 1.3(H) (0.7-1.2) MG/DL [facility] Sodium 141 (133-145) MMOL/L [facility] Potassium 4.8 (3.6-5.2) MMOL/L [facility] Chloride 107 (98-107) MMOL/L [facility] Bicarbonate (CO2) 23 (22-29) MMOL/L [facility] Anion Gap 11 (4-17) [facility] Albumin 4.4 (3.4-4.8) GM/DL [facility] Calcium 9.4 (8.6-10.5) MG/DL [facility] Phosphorus, Serum 3.6 (2.5-4.5) MG/DL [facility] Est GFR Non 60 ML/MIN/1.7 3 M2 [facility] Comment: Creatinine based estimated glomerular filtration (eGFR) in adults is calculated using the National Kidney [employer] recommended 2020 CKD-EPI equation. Estimates GFR from serum creatinine, age and sex. Testing performed or reported by [facility], a Service of [address] [address] Alejandra Rhodes MD, [place] CLIA# [id number] 11/18/2022 10:0 9 AM EDT 11/18/2022 10:43 AM EDT Raymundo Paz MD LAB BLOOD ORDERABLES Final Re sult Performing Organization Address [facility] de Phone Number [facility] * Magnesium (11/18/2022 10:09 AM EDT) Magnesium 1.9 (1.6-2.3) mg/dL [facility] Comment: Testing performed or reported by [facility], a Service of [address] [address] Alejandra Rhodes MD, [place]# [id number] 11/18/2022 10:0 9 AM EDT 11/18/2022 10:43 AM EDT Raymundo Paz MD LAB BLOOD ORDERABLES Final Re sult Performing Organization Address [facility] de Phone Number [facility] * Albumin (11/18/2022 10:09 AM EDT) Albumin 4.4 (3.4-4.8) GM/DL [facility] Comment: Testing performed or reported by [facility], a Service of [address] [address] Alejandra Rhodes MD, [place] CLIA# [id number] 11/18/2022 10:0 9 AM EDT 11/18/2022 10:43 AM EDT us Raymundo Paz MD LAB BLOOD ORDERABLES Final Re sult Performing Organization Address [facility] de Phone Number [facility] * (ABNORMAL) Urinalysis with microscopic (11/18/2022 10:09 AM EDT) Appearance LIGHT YELLOW [facility] Comment:CLEAR Specific Reynolds 1.017 (1.002-1. 030) [facility] pH Urine 6.0 (5.0-8.0) [facility] Albumin, Urine 1+(A) (NEG) [facility] Glucose, Ur NEGATIVE (NEG) [facility] Ketones, Urine NEGATIVE (NEG) [facility] Bilirubin Urine NEGATIVE (NEG) [facility] Hemoglobin Presence in Urine NEGATIVE (NEG) [facility] Nitrite, Urine NEGATIVE (NEG) [facility] Leukocyte Esterase Urine NEGATIVE (NEG) [facility] Urobilinogen Urine NORMAL (NORM) MG/DL [facility] WBC, Urine 1 (0-5) /HPF [facility] RBC, Urine 1 (0-3) /HPF [facility] Mucus, Urine SLIGHT /LPF [facility] Squamous Epithelial, Urine 1 (0-8) /HPF [facility] Comment: Testing performed or reported by [facility], a Service of [facility], [address] [place] [address] Alejandra Rhodes MD, [place] IA# [id number] 11/18/2022 10:0 9 AM EDT 11/18/2022 10:43 AM EDT Result [facility] Raymundo Paz MD LAB URINE ORDERABLES Final Re sult Performing Organization Address [facility] de Phone Number [facility] * PTH, Intact (11/18/2022 10:09 AM EDT) Pathologist [facility] PTH, Intact 56 (15-65) PG/ML [facility] Comment: Testing performed or reported by [facility], a Service of [facility], [address] [place] [address] Aljeandra Rhodes MD, [place] CLIA# [id number] 11/18/2022 10:0 9 AM EDT 11/18/2022 10:43 AM EDT Raymundo Paz MD LAB BLOOD ORDERABLES Final Re sult Performing Organization Address [facility]/ZIP Co de Phone Number [facility] * (ABNORMAL) CBC (11/18/2022 10:09 AM EDT) White Blood Cells 7.2 (4.0-11.0) K/MM3 [facility] RBC 3.83(L) (4.70-6.10 ) M/MM3 [facility] Hgb 12.3(L) (13.7-17.1 ) GM/DL [facility] Hematocrit 38.8(L) (40.5-50.0 ) % [facility] MCV 101.3(H) (80.0-94.0 ) FL [facility] MCH 32.1 (27.0-34.0 ) PG [facility] MCHC 31.7(L) (33.0-37.0 ) g/dL [facility] Platelets 200 (150-460) K/MM3 [facility] RDW-SD 48.8(H) (<47.0) FL [facility] MPV 11.6 (9.4-12.4) FL [facility] nRBC Count 0.0 #/100 WBC'S [facility] NRBC Absolute 0.0 K/MM3 [facility] Comment: Testing performed or reported by [facility], a Service of [facility], [address] [place] [address] Alejandra Rhodes MD, [place] [facility]# [id number] 11/18/2022 10:0 9 AM EDT 11/18/2022 10:43 AM EDT us Raymundo Paz MD LAB BLOOD ORDERABLES Final Re sult [facility] documented in this encounter Visit Diagnoses Not on filedocumented in this encounter Care Teams Warehouse Packer Relationship Specialty Start Date End Date Fabio De La Garza MD [address] [place] [address] PCP - General Internal Medicine 07/15/21 documented as of this encounter
== END 2024-11-24 08:58 | disposition home or self-care (01) ==
LOC: HO.HMGCX 08:57
PROVIDERS: PCP Internal Medicine; Visit Provider Urology
DX: Z87.442 Personal history of urinary calculi (principal)
CPT/HCPCS: 76775

== ENCOUNTER → 2024-11-24 08:59 | Outpatient (BNV) | payer MEDICARE, OTHER, SELFPAY | PROVIDERS: PCP Internal Medicine; Visit Provider Specialist | DX: Z87.442 Personal history of urinary calculi (principal) | CPT/HCPCS: 76775 ==

== ENCOUNTER 2024-12-01 07:51 | Outpatient (AMB) | payer MEDICARE, OTHER, SELFPAY ==
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
--- OUTSIDE RECORDS SUMMARY | 2024-12-01 07:54 | XMS_ITS | Clinical Summary ---
Author Organization [facility] [address] [place] [address] Phone Care Team Providers Care Superintendent Plant Name Role Phone Fabio De La Garza MD Primary Care Provider [phone] Allergies No known active allergies Medications albuterol [...] Only [facility] [address] [place] [address] [address] [place] [address] Raymundo Paz MD Chronic kidney disease, stage 4 (severe) (HCC) (Primary Dx); Anemia in chronic kidney disease; Hyperkalemia; Hypertension 11/15/2024 Refill [facility] [address] [place] [address] Raymundo Paz MD from Last [...] Visit [facility] [address] [place] [address] Raymundo Paz MD [address] [facility] [address] [place] [address] Health Maintenance Due Date Last Done Comments Pneumococcal Vaccine: 50+ Ye ars (1 of 2 - PCV) 02/15/1972 Colorectal Cancer Screening: Annual FOBT 2002 Colorectal Cancer Screening: Colonoscopy 2002 Colorectal Cancer Screening: Sigmoidoscopy 2002 Influenza Vaccine (Season Ended) 2025 05/09/20 Hepatitis B Vaccine Aged Out No longe r eligible based on patient's age to complete this topic Insurance , [facility] [address] [place] [address] [facility] Medicare , [facility] [address] [place] [address] [facility] [place] [address] Medicare Care Teams Superintendent Plant Relationship Specialty Start Date End Date Fabio De La Garza MD [address] [place] [address] PCP - General Internal Medicine 07/15/21
--- OUTSIDE RECORDS SUMMARY | 2024-12-01 07:54 | XMS_ITS | Encounter Summary ---
Author Organization [facility] Address [address] [facility] [address] [place] [address] Phone Care Team Providers Care Beadworker Name Role Phone Fabio De La Garza MD Primary Care Provider [phone] Encounter Details Date Type Department Care Team (Late st Contact Info) Description 11/11/2022 Telephone [facility] [address] [facility] [address] [place] [address] Yun Valdovinos Social History Tobacco [...] Visit [facility] [address] [place], [place] [address] Raymundo Paz MD [address] [place] [address] documented as of this encounter [...] Comment See Comment See Comment See Comment [facility] Comment: CLEAN CATCH (URINE) NONE NO GROWTH FINAL 11/19/2022 Testing performed or reported by [facility], a Service of [facility], [place] [address] Michael Henriquez MD, Social Work Associate CLIA# [id number] 11/18/2022 10:0 9 AM EDT 11/18/2022 10:43 AM EDT Result [facility] Raymundo Paz MD LAB URINE ORDERABLES Final Re sult [facility] * (ABNORMAL) Vitamin D 25 Hydroxy (11/18/2022 10:09 AM EDT) Vitamin D, 25-Hydroxy 18.6(L) (20-50) NG/ML [facility] Comment: Testing performed or reported by [facility], a Service of [facility], [address] [place] [address] Alejandra Rhodes MD, Social Work Associate [facility]# [id number] 11/18/2022 10:0 9 AM EDT 11/18/2022 10:43 AM EDT Result [facility] Raymundo Paz MD LAB BLOOD ORDERABLES Final Re sult [facility] * (ABNORMAL) Urine Albumin / Creatinine Ratio (11/18/2022 10:09 AM EDT) Urine Microalbumin 518.6(H) (<20) MG/L [facility] Comment: The urine microalbumin test is designed to monitor renal function. When screening for Bence Luz proteinuria, urine electrophoresis is recommended. Microalbumin/Creati nine Ratio 427.5(H) (0-20) MG/GM [facility] Microalb/Creat Ratio 121.3 MG/DL [facility] Comment: Testing performed or reported by [facility], a Service of [facility], [address] [place] [address] Alejandra Rhodes MD, Social Work Associate IA# [id number] 11/18/2022 10:0 9 AM EDT 11/18/2022 10:43 AM EDT Result [facility] Raymundo Paz MD LAB URINE ORDERABLES Final Re sult Performing Organization Address [facility] Co de Phone Number [facility] * (ABNORMAL) Protein, Total, Random Urine w/Creatinine (Protein/Creat Ratio) (11/18/2022 10:09 AM EDT) Pathologist [facility] Protein/Creatine Ratio 0.56(H) (0-0.2) [facility] Protein, Urine 68 MG/DL [facility] Comment: The urine microalbumin test is designed to monitor renal function. When screening for Bence Luz proteinuria, urine electrophoresis is recommended. Creatinine, Urine 121.3 MG/DL [facility] Comment: Testing performed or reported by [facility], a Service of [facility], [address] [place] [address] Alejandra Rhodes MD, Social Work Associate [facility]# [id number] 11/18/2022 10:0 9 AM EDT 11/18/2022 10:43 AM EDT Raymundo Paz MD LAB URINE ORDERABLES Final Re sult Performing Organization Address [facility] de Phone Number [facility] * (ABNORMAL) Renal Function Panel (11/18/2022 10:09 AM EDT) Pathologist [facility] Glucose 116(H) (70-99) MG/DL [facility] BUN 25(H) (8-23) MG/DL [facility] Creatinine 1.3(H) (0.7-1.2) MG/DL [facility] Sodium 141 (133-145) MMOL/L [facility] Potassium 4.8 (3.6-5.2) MMOL/L [facility] Chloride 107 (98-107) MMOL/L [facility] Bicarbonate (CO2) 23 (22-29) MMOL/L [facility] Anion Gap 11 (4-17) [facility] Albumin 4.4 (3.4-4.8) GM/DL [facility] Calcium 9.4 (8.6-10.5) MG/DL [facility] Phosphorus, Serum 3.6 (2.5-4.5) MG/DL [facility] Est GFR Non 60 ML/MIN/1.7 3 M2 [facility] Comment: Creatinine based estimated glomerular filtration (eGFR) in adults is calculated using the National Kid[employer] recommended 2020 CKD-EPI equation. Estimates GFR from serum creatinine, age and sex. Testing performed or reported by [facility], a Service of [address] [address] Alejandra Rhodes MD, Social Work Associate CLIA# [id number] 11/18/2022 10:0 9 AM EDT 11/18/2022 10:43 AM EDT Raymundo Paz MD LAB BLOOD ORDERABLES Final Re sult Performing Organization Address [facility] de Phone Number [facility] * Magnesium (11/18/2022 10:09 AM EDT) Magnesium 1.9 (1.6-2.3) mg/dL [facility] Comment: Testing performed or reported by [facility], a Service of [address] [address] Alejandra Rhodes MD, Social Work Associate IA# [id number] 11/18/2022 10:0 9 AM EDT 11/18/2022 10:43 AM EDT Raymundo Paz MD LAB BLOOD ORDERABLES Final Re sult Performing Organization Address [facility] de Phone Number [facility] * Albumin (11/18/2022 10:09 AM EDT) Albumin 4.4 (3.4-4.8) GM/DL [facility] Comment: Testing performed or reported by [facility], a Service of [address] [address] Alejandra Rhodes MD, Social Work Associate CLIA# [id number] 11/18/2022 10:0 9 AM EDT 11/18/2022 10:43 AM EDT us Raymundo Paz MD LAB BLOOD ORDERABLES Final Re sult Performing Organization Address [facility] de Phone Number [facility] * (ABNORMAL) Urinalysis with microscopic (11/18/2022 10:09 AM EDT) Appearance LIGHT YELLOW [facility] Comment:CLEAR Specific [place] 1.017 (1.002-1. 030) [facility] pH Urine 6.0 (5.0-8.0) [facility] Albumin, Urine 1+(A) (NEG) [facility] Glucose, Ur NEGATIVE (NEG) [facility] Ketones, Urine NEGATIVE (NEG) [facility] Bilirubin Urine NEGATIVE (NEG) [facility] Hemoglobin Presence in Urine NEGATIVE (NEG) [facility] Nitrite, Urine NEGATIVE (NEG) [facility] Leukocyte Esterase Urine NEGATIVE (NEG) [facility] Urobilinogen Urine NORMAL (NORM) MG/DL [facility] WBC, Urine 1 (0-5) /HPF [facility] RBC, Urine 1 (0-3) /HPF [facility] Mucus, Urine SLIGHT /LPF [facility] Squamous Epithelial, Urine 1 (0-8) /HPF [facility] Comment: Testing performed or reported by [facility], a Service of [facility], [address] [place] [address] Alejandra Rhodes MD, Social Work Associate IA# [id number] 11/18/2022 10:0 9 AM EDT 11/18/2022 10:43 AM EDT Result [facility] Raymundo Paz MD LAB URINE ORDERABLES Final Re sult Performing Organization Address [facility] de Phone Number [facility] * PTH, Intact (11/18/2022 10:09 AM EDT) Pathologist [facility] PTH, Intact 56 (15-65) PG/ML [facility] Comment: Testing performed or reported by [facility], a Service of [facility], [address] [place] [address] Alejandra Rhodes MD, Social Work Associate CLIA# [id number] 11/18/2022 10:0 9 AM EDT 11/18/2022 10:43 AM EDT Raymundo Paz MD LAB BLOOD ORDERABLES Final Re sult Performing Organization Address [facility]/ZIP Co de Phone Number [facility] * (ABNORMAL) CBC (11/18/2022 10:09 AM EDT) White Blood Cells 7.2 (4.0-11.0) K/MM3 [facility] RBC 3.83(L) (4.70-6.10 ) M/MM3 [facility] Hgb 12.3(L) (13.7-17.1 ) GM/DL [facility] Hematocrit 38.8(L) (40.5-50.0 ) % [facility] MCV 101.3(H) (80.0-94.0 ) [place] [facility] MCH 32.1 (27.0-34.0 ) PG [facility] MCHC 31.7(L) (33.0-37.0 ) g/dL [facility] Platelets 200 (150-460) K/MM3 [facility] RDW-SD 48.8(H) (<47.0) [place] [facility] MPV 11.6 (9.4-12.4) [place] [facility] nRBC Count 0.0 #/100 WBC'S [facility] NRBC Absolute 0.0 K/MM3 [facility] Comment: Testing performed or reported by [facility], a Service of [facility], [address] [place] [address] Alejandra Rhodes MD, Social Work Associate [facility]# [id number] 11/18/2022 10:0 9 AM EDT 11/18/2022 10:43 AM EDT us Raymundo Paz MD LAB BLOOD ORDERABLES Final Re sult [facility] documented in this encounter Visit Diagnoses Not on filedocumented in this encounter Care Teams Beadworker Relationship Specialty Start Date End Date Fabio De La Garza MD [address] [place] [address] PCP - General Internal Medicine 07/15/21 documented as of this encounter
--- OUTSIDE RECORDS SUMMARY | 2024-12-01 07:54 | XMS_ITS | Data Portability ---
Author Organization [facility], OFFICE Address [address] [facility] [address] [place] [address] Assessment Encounter Date Assessment Date Assessment LastModified [...] Singh MD [address], [place], [address], [place] - Comp-Assistd and Rcnstrctive Surgry 08/12/2017 17:33:36 General Surgery completed Gera Singh MD [address], [place], [address], [place] - Comp-Assistd and Rcnstrctive Surgry 08/12/2017 17:34:06 Knee Surgery completed Gera Singh MD [address], [place], [address], [place] - Comp-Assistd and Rcnstrctive Surgry 08/12/2017 17:34:25 Hip Surgery completed Gera Singh MD [address], [place], [address], [place] - Comp-Assistd and Rcnstrctive Surgry 10/26/2017 [...] Updated DateTime 08/12/2017 167.64 cm 38.7 kg/m2 132314.1 7 g 166 mm[Hg] 84 mm[Hg] Alicia Jones [place] - Comp-Assistd and Rcnstrctive Surgry 8 16:31:54 Date Recorded Body height Body mass index (BMI) Body weight Systolic blood pressure Diastolic blood pressure Provider Name and Address Organization Details Last Updated DateTime 10/26/2017 167.64 cm 39.2 kg/m2 329384.9 5 g 150 mm[Hg] 73 mm[Hg] Alicia Jones [place] - Comp-Assistd and Rcnstrctive Surgry 8 13:11:40 Date Recorded Body height Body mass index (BMI) Body weight Provider Name and Address Organization Details Last Updated DateTime 11/23/2017 167.64 cm 39.5 kg/m2 812527.13 g Alicia Jones [place] - Comp-Assistd and Rcnstrctive Surgry 11/23/2017 12:07:21 Date Recorded Body height Body mass index (BMI) Body weight Systolic blood pressure Diastolic blood pressure Provider Name and Address Organization Details Last Updated DateTime 08/17/2024 167.64 cm 41.2 kg/m2 988430.0 5 g 148 mm[Hg] 86 mm[Hg] Alicia Jones [place] - Comp-Assistd and Rcnstrctive Surgry 5 13:24:12 Social History Question Answer Notes LastModified by Organizat ion Details LastModified Time Tobacco Smoking Status Former Smoker Gera Singh MD [address] [place] [address],[facility] [address], [place], [address], [place] - Comp-Assistd and Rcnstrctive Surgry 08/12/2017 17:32:27 What Was The Date Of Your Most Recent Tobacco Screening? 04/11/2024 [email or web address] Information not available 04/11/2024 Has Tobacco Cessation Counseling Been Provided? No [email or web address] Information not available 04/11/2024 Do You Or Have You Ever Used Any Other Forms Of Tobacco Or Nicotine? No [email or web address] Information not available 04/11/2024 Sex: Unknown Functional Status Question Answer Note LastModified by Organization D etails LastModified Time Are you able to care for yourself? Yes Information n ot available 04/11/2024 Mental Status [...] Migraines N Thyroid Problems N Anemia N Heart Attack ([place]) N Ulcers N Diabetes N Bleeding Disorder N Seizures/Epilepsy N Tuberculosis N AIDS/HIV N Asthma N Peripheral Vascular Disease N Hepatitis N Pulmonary Embolism N Hypertension Y Osteoporosis N Past Encounters Encounter ID Performer Location Encounter Start Date Encounter Closed Date Diagnosis/Indication Diagnosis SNOMED-CT Code Diagnosis ICD10 Code Diagnosis Note [id number] Gera Singh MD OFFICE [address] [address] 08/12/2017 15:36:56 08/23/2017 15:09:43 [id number] Gera Singh MD OFFICE [address] [facility] [address] [address] 10/26/2017 12:18:58 10/26/2017 15:39:01 [id number] Gera Singh MD OFFICE [address] [address] 11/23/2017 11:58:03 11/24/2017 17:00:49 [id number] Gera Singh MD [facility] [address] [place] [address] 04/11/2024 07:51:20 05/11/2024 16:35:13 [id number] Gera Singh MD OFFICE [address] [facility] [address] [address] 08/17/2024 12:40:59 08/24/2024 09:32:18 Health Concerns Section Related Observation LastModified by Organization Detai ls LastModified Time None Recorded Concern Status LastModified by Organization Details LastModified Time None Recorded Advance Directives Directive None Recorded Payers Encounter Date Sequence Insurance Name Policy Number Policy Montanez Covered Member ID Montanez Member ID Guarantor Name 08/12/2017 2 [employer] - [employer] [id number] Edward Dayton [id number] Edsteve Brownord 10/26/2017 2 [facility] [employer] [id number] Edward Markos [id number] Edward Dayton 11/23/2017 2 [employer] - [employer] [id number] Edward Dayton [id number] Edward Markos 04/11/2024 2 [facility] [employer] [id number] Edward Markos [id number] Edward Markos 08/17/2024 2 [facility] [employer] [id number] Edward Dayton [id number] Edward Markos 08/17/2024 1 MEDICARE B-NC: [employer] SERVICES Espinoza Burrows [id number] Edsteve Burrows Notes Date Note Type [...] Previous PT:did not help Gera Singh MD [address] [place] [address],[facility] [address], [place], [address], [place] - Comp-Assistd and Rcnstrctive Surgry 08/12/2017 [...] Gera Singh MD [address], [place], [address], [facility] - Comp-Assistd and nsctive Surgry 10/26/2017 [...] PT:helped significantly Gera Singh MD [address],[facility] [address], [place], [address], [facility] - Comp-Assistd and nstrctive Surgry 11/23/2017 [...] Gera Singh MD [address], [place], [address], [place] - Comp-Assistd and Rcnstrctive Surgry 04/11/2024 [...] Gera Singh MD [address], [place], [address], [place] - Comp-Assistd and Rcnstrctive Surgry 08/17/2024 15:06:14
== END 2024-12-01 10:49 | disposition home or self-care (01) ==
LOC: HO.HUSH 07:51
PROVIDERS: PCP Internal Medicine; Visit Provider Urology
DX: R79.89 Other specified abnormal findings of blood chemistry (principal); N52.9 Male erectile dysfunction, unspecified; Z87.442 Personal history of urinary calculi; Z80.42 Family history of malignant neoplasm of prostate
CPT/HCPCS: 99213

== ENCOUNTER → 2024-12-01 07:51 | Outpatient (BNVA) | payer MEDICARE, OTHER, SELFPAY | PROVIDERS: PCP Internal Medicine; Visit Provider Urology ==

== ENCOUNTER 2024-12-05 10:47 | Outpatient (REF) | payer MEDICARE, OTHER, SELFPAY ==
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
--- OUTSIDE RECORDS SUMMARY | 2024-12-05 11:33 | XMS_ITS | Encounter Summary ---
Author Organization [facility] Address [address] [facility] [address] [place] [address] Phone Care Team Providers Care Senior Supplier Quality Engineer Name Role Phone Fabio De La Garza MD Primary Care Provider [phone] Encounter Details Date Type Department Care Team (Late st Contact Info) Description 11/11/2022 Telephone [facility] [address] [facility] [address] [address] [place] [address] Yun Valdovinos Social History Tobacco [...] Visit [facility] [address] [place], [place] [address] Raymundo Paz MD [address] [place] [address] documented as of this encounter [...] Comment See Comment See Comment See Comment [facility] Comment: CLEAN CATCH (URINE) NONE NO GROWTH FINAL 11/19/2022 Testing performed or reported by [facility], a Service of [facility], [place] [address] Michael Henriquez MD, Film Processing Utility Worker CLIA# [id number] 11/18/2022 10:0 9 AM EDT 11/18/2022 10:[address] [facility] Raymundo Paz MD LAB URINE ORDERABLES Final Re sult [facility] * (ABNORMAL) Vitamin D 25 Hydroxy (11/18/2022 10:09 AM EDT) Vitamin D, 25-Hydroxy 18.6(L) (20-50) NG/ML [facility] Comment: Testing performed or reported by [facility], a Service of [facility], [address] [place] [address] Alejandra Rhodes MD, Film Processing Utility Worker [facility]# [id number] 11/18/2022 10:0 9 AM EDT 11/18/2022 10:[address] [facility] Raymundo Paz MD LAB BLOOD ORDERABLES Final Re sult [facility] * (ABNORMAL) Urine Albumin / Creatinine Ratio (11/18/2022 10:09 AM EDT) Urine Microalbumin 518.6(H) (<20) MG/L [facility] Comment: The urine microalbumin test is designed to monitor renal function. When screening for Bence Luz proteinuria, urine electrophoresis is recommended. Microalbumin/Creati nine Ratio 427.5(H) (0-20) MG/GM [facility] Microalb/Creat Ratio 121.3 MG/DL [facility] Comment: Testing performed or reported by [facility], a Service of [facility], [address] [place] [address] Alejandra Rhodes MD, Film Processing Utility Worker [place]# [id number] 11/18/2022 10:0 9 AM EDT 11/18/2022 10:[address] [facility] Raymundo Paz MD LAB URINE ORDERABLES Final Re sult Performing Organization Address [facility] Co de Phone Number [facility] * (ABNORMAL) Protein, Total, Random Urine w/Creatinine (Protein/Creat Ratio) (11/18/2022 10:09 AM EDT) Pathologist [facility] Protein/Creatine Ratio 0.56(H) (0-0.2) [facility] Protein, Urine 68 MG/DL [facility] Comment: The urine microalbumin test is designed to monitor renal function. When screening for Bence Luz proteinuria, urine electrophoresis is recommended. Creatinine, Urine 121.3 MG/DL [facility] Comment: Testing performed or reported by [facility], a Service of [facility], [address] [place] [address] Alejandra Rhodes MD, Film Processing Utility Worker [facility]# [id number] 11/18/2022 10:0 9 AM EDT 11/18/2022 10:43 AM EDT Raymundo Paz MD LAB URINE ORDERABLES Final Re sult Performing Organization Address [facility] de Phone Number [facility] * (ABNORMAL) Renal Function Panel (11/18/2022 10:09 AM EDT) Pathologist [facility] Glucose 116(H) (70-99) MG/DL [facility] BUN 25(H) (8-23) MG/DL [facility] Creatinine 1.3(H) (0.7-1.2) MG/DL [facility] Sodium 141 (133-145) MMOL/L [facility] Potassium 4.8 (3.6-5.2) MMOL/L [facility] Chloride 107 (98-107) MMOL/L [facility] Bicarbonate (CO2) 23 (22-29) MMOL/L [facility] Anion Gap 11 (4-17) [facility] Albumin 4.4 (3.4-4.8) GM/DL [facility] Calcium 9.4 (8.6-10.5) MG/DL [facility] Phosphorus, Serum 3.6 (2.5-4.5) MG/DL [facility] Est GFR Non 60 ML/MIN/1.7 3 M2 [facility] Comment: Creatinine based estimated glomerular filtration (eGFR) in adults is calculated using the [employer] recommended 2020 CKD-EPI equation. Estimates GFR from serum creatinine, age and sex. Testing performed or reported by [facility], a Service of [address] [address] Alejandra Rhodes MD, Film Processing Utility Worker CLIA# [id number] 11/18/2022 10:0 9 AM EDT 11/18/2022 10:43 AM EDT Raymundo Paz MD LAB BLOOD ORDERABLES Final Re sult Performing Organization Address [facility] de Phone Number [facility] * Magnesium (11/18/2022 10:09 AM EDT) Magnesium 1.9 (1.6-2.3) mg/dL [facility] Comment: Testing performed or reported by [facility], a Service of [address] [address] Alejandra Rhodes MD, Film Processing Utility Worker [place]# [id number] 11/18/2022 10:0 9 AM EDT 11/18/2022 10:43 AM EDT Raymundo Paz MD LAB BLOOD ORDERABLES Final Re sult Performing Organization Address [facility] de Phone Number [facility] * Albumin (11/18/2022 10:09 AM EDT) Albumin 4.4 (3.4-4.8) GM/DL [facility] Comment: Testing performed or reported by [facility], a Service of [address] [address] Alejandra Rhodes MD, Film Processing Utility Worker CLIA# [id number] 11/18/2022 10:0 9 AM EDT 11/18/2022 10:43 AM EDT us Raymundo Paz MD LAB BLOOD ORDERABLES Final Re sult Performing Organization Address [facility] de Phone Number [facility] * (ABNORMAL) Urinalysis with microscopic (11/18/2022 10:09 AM EDT) Appearance LIGHT YELLOW [facility] Comment:CLEAR Specific [place] 1.017 (1.002-1. 030) [facility] pH Urine 6.0 (5.0-8.0) [facility] Albumin, Urine 1+(A) (NEG) [facility] Glucose, Ur NEGATIVE (NEG) [facility] Ketones, Urine NEGATIVE (NEG) [facility] Bilirubin Urine NEGATIVE (NEG) [facility] Hemoglobin Presence in Urine NEGATIVE (NEG) [facility] Nitrite, Urine NEGATIVE (NEG) [facility] Leukocyte Esterase Urine NEGATIVE (NEG) [facility] Urobilinogen Urine NORMAL (NORM) MG/DL [facility] WBC, Urine 1 (0-5) /HPF [facility] RBC, Urine 1 (0-3) /HPF [facility] Mucus, Urine SLIGHT /LPF [facility] Squamous Epithelial, Urine 1 (0-8) /HPF [facility] Comment: Testing performed or reported by [facility], a Service of [facility], [address] [place] [address] Alejandra Rhodes MD, Film Processing Utility Worker IA# [id number] 11/18/2022 10:0 9 AM EDT 11/18/2022 10:[address] [facility] Raymundo Paz MD LAB URINE ORDERABLES Final Re sult Performing Organization Address [facility] de Phone Number [facility] * PTH, Intact (11/18/2022 10:09 AM EDT) Pathologist [facility] PTH, Intact 56 (15-65) PG/ML [facility] Comment: Testing performed or reported by [facility], a Service of [facility], [address] [place] [address] Alejandra Rhodes MD, Film Processing Utility Worker CLIA# [id number] 11/18/2022 10:0 9 AM EDT 11/18/2022 10:43 AM EDT Raymundo Paz MD LAB BLOOD ORDERABLES Final Re sult Performing Organization Address [facility]/ZIP Co de Phone Number [facility] * (ABNORMAL) CBC (11/18/2022 10:09 AM EDT) White Blood Cells 7.2 (4.0-11.0) K/MM3 [facility] RBC 3.83(L) (4.70-6.10 ) M/MM3 [facility] Hgb 12.3(L) (13.7-17.1 ) GM/DL [facility] Hematocrit 38.8(L) (40.5-50.0 ) % [facility] MCV 101.3(H) (80.0-94.0 ) [place] [facility] MCH 32.1 (27.0-34.0 ) PG [facility] MCHC 31.7(L) (33.0-37.0 ) g/dL [facility] Platelets 200 (150-460) K/MM3 [facility] RDW-SD 48.8(H) (<47.0) FL [facility] MPV 11.6 (9.4-12.4) [place] [facility] nRBC Count 0.0 #/100 WBC'S [facility] NRBC Absolute 0.0 K/MM3 [facility] Comment: Testing performed or reported by [facility], a Service of [facility], [address] [place] [address] Alejandra Rhodes MD, Film Processing Utility Worker [facility]# [id number] 11/18/2022 10:0 9 AM EDT 11/18/2022 10:43 AM EDT us Raymundo Paz MD LAB BLOOD ORDERABLES Final Re sult [facility] documented in this encounter Visit Diagnoses Not on filedocumented in this encounter Care Teams Senior Supplier Quality Engineer Relationship Specialty Start Date End Date Fabio De La Garza MD [address] [place] [address] PCP - General Internal Medicine 07/15/21 documented as of this encounter
--- OUTSIDE RECORDS SUMMARY | 2024-12-05 11:33 | XMS_ITS | Data Portability ---
Author Organization [facility] [facility], OFFICE Address [address] [facility] [address] [place] [address] Assessment Encounter Date Assessment Date Assessment LastModified [...] Singh MD [address], [place], [address], [place] - Comp-Assistd and Rcnstrctive Surgry 08/12/2017 17:33:36 General Surgery completed Gera Singh MD [address], [place], [address], [place] - Comp-Assistd and Rcnstrctive Surgry 08/12/2017 17:34:06 Knee Surgery completed Gera Singh MD [address], [place], [address], [place] - Comp-Assistd and Rcnstrctive Surgry 08/12/2017 17:34:25 Hip Surgery completed Gera Singh MD [address], [place], [address], [place] - Comp-Assistd and Rcnstrctive Surgry 10/26/2017 [...] Updated DateTime 08/12/2017 167.64 cm 38.7 kg/m2 253337.1 7 g 166 mm[Hg] 84 mm[Hg] Alicia Jones [place] - Comp-Assistd and Rcnstrctive Surgry 8 16:31:54 Date Recorded Body height Body mass index (BMI) Body weight Systolic blood pressure Diastolic blood pressure Provider Name and Address Organization Details Last Updated DateTime 10/26/2017 167.64 cm 39.2 kg/m2 044285.9 5 g 150 mm[Hg] 73 mm[Hg] Alicia Jones [place] - Comp-Assistd and Rcnstrctive Surgry 8 13:11:40 Date Recorded Body height Body mass index (BMI) Body weight Provider Name and Address Organization Details Last Updated DateTime 11/23/2017 167.64 cm 39.5 kg/m2 278528.13 g Alicia Jones [place] - Comp-Assistd and Rcnstrctive Surgry 11/23/2017 12:07:21 Date Recorded Body height Body mass index (BMI) Body weight Systolic blood pressure Diastolic blood pressure Provider Name and Address Organization Details Last Updated DateTime 08/17/2024 167.64 cm 41.2 kg/m2 942485.0 5 g 148 mm[Hg] 86 mm[Hg] Alicia Jones [place] - Comp-Assistd and Rcnstrctive Surgry 5 13:24:12 Social History Question Answer Notes LastModified by Organizat ion Details LastModified Time Tobacco Smoking Status Former Smoker Gera Singh MD [address] [place] [address],[address], [place], [address], [place] - Comp-Assistd and Rcnstrctive Surgry 08/12/2017 17:32:27 What Was The Date Of Your Most Recent Tobacco Screening? 04/11/2024 [email or web address] Information not available 04/11/2024 Has Tobacco Cessation Counseling Been Provided? No Information not available 04/11/2024 Sex: Unknown Functional Status Question Answer Note LastModified by Organization D etails LastModified Time Do you or have you ever used any other forms of tobacco or nicotine? No [email or web address] Information not available 04/11/2024 Are you able to care for yourself? Yes [email or web address] Information n ot available 04/11/2024 Mental Status None recorded. Family History Nothing Reported. Medical History Condition Response Heart Problems N Coronary Artery Disease N Gout N Anxiety/Depression N Blood Transfusion N Hernia N Migraines N Thyroid Problems N COPD N Pacemaker N Anemia N Heart Attack (MD) N Ulcers N Diabetes N Bleeding Disorder N Orthotics [...] SNOMED-CT Code Diagnosis ICD10 Code Diagnosis Note [id number] Gera Singh MD OFFICE [address] [address] 08/12/2017 15:36:56 08/23/2017 15:09:43 [address]3701 Gera Singh MD OFFICE 125 [facility] [address] [address] 10/26/2017 12:18:58 10/26/2017 15:39:01 11116 Gera Singh MD OFFICE [address] [place] [address] [address] 11/23/2017 11:58:03 11/24/2017 17:00:49 [address]2368 Gera Singh MD [facility] [address] [place] [address] 04/11/2024 07:51:20 05/11/2024 16:35:13 23222 Gera Singh MD OFFICE 125 [facility] [address] [address] 08/17/2024 12:40:59 08/24/2024 09:32:18 Health Concerns Section Related Observation LastModified by Organization Detai ls LastModified Time None Recorded Concern Status LastModified by Organization Details LastModified Time None Recorded Advance Directives Directive None Recorded Payers Encounter Date Sequence Insurance Name Policy Number Policy Montanez Covered Member ID Montanez Member ID Guarantor Name 08/12/2017 2 [employer] [id number] Edward Markos [id number] Edsteve Brownord 10/26/2017 2 [facility] [employer] [id number] Edward Markos [id number] Edward Markos 11/23/2017 2 [employer] [id number] Edward Tazewell [id number] Edward Tazewell 04/11/2024 2 [facility] [employer] [id number] Edward Markos [id number] Edward Markos 08/17/2024 2 [facility] [employer] [employer] [id number] Edward Markos [id number] Edward Markos 08/17/2024 1 MEDICARE B-DC: [email or web address] SERVICES Espinoza Burrows [id number] Edsteve Burrows Notes Date Note Type [...] Previous PT:did not help Gera Singh MD [address] [place] [address],[address], [place], [address], [place] - Comp-Assistd and Rcnstrctive Surgry 08/12/2017 [...] PT:helped significantly Gera Singh MD [address], [place], [address], [facility] - Comp-Assistd and nsctive Surgry 10/26/2017 14:27:21 [...] ray; CT scan Previous PT:helped significantly Gera Signh MD [address], [place], [address], [facility] - Comp-Assistd and nstrctive Surgry 11/23/2017 13:39:20 [...] Gera Singh MD [address], [place], [address], [place] - Comp-Assistd and Rcnstrctive Surgry 04/11/2024 [...] Gera Singh MD [address], [place], [address], [place] - Comp-Assistd and Rcnstrctive Surgry 08/17/2024 15:06:14
--- OUTSIDE RECORDS SUMMARY | 2024-12-05 11:33 | XMS_ITS | Clinical Summary ---
Author Organization [facility] [address] [place] [address] Phone Care Team Providers Care Supervisor Landscape Name Role Phone Fabio De La Garza MD Primary Care Provider [phone] Allergies No known active allergies Medications albuterol [...] [facility] [address] [place] [address] [address] [place] [address] Raymundo Paz MD Chronic kidney disease, stage 4 (severe) (HCC) (Primary Dx); Anemia in chronic kidney disease; Hyperkalemia; Hypertension 11/15/2024 Refill [facility] [address] [place] [address] Raymundo Paz MD from Last [...] Visit [facility] [address] [place] [address] Raymundo Paz MD [address] [facility] [address] [place] [address] Health Maintenance Due Date Last Done Comments Pneumococcal Vaccine: 50+ Ye ars (1 of 2 - PCV) 02/15/1972 Colorectal Cancer Screening: Annual FOBT 2002 Colorectal Cancer Screening: Colonoscopy 2002 Colorectal Cancer Screening: Sigmoidoscopy 2002 Influenza Vaccine (Season Ended) 2025 05/09/20 Hepatitis B Vaccine Aged Out No longe r eligible based on patient's age to complete this topic Insurance , [facility] [address] [place] [address] [facility] Medicare , [facility] [address] [place] [address] [facility] [place] [address] Medicare Care Teams Supervisor Landscape Relationship Specialty Start Date End Date Fabio De La Garza MD [address] [place] [address] PCP - General Internal Medicine 07/15/21
[2024-12-05 13:23] LABS: MANUAL DIFF FLAG NO
[2024-12-05 13:47] LABS: Basophils Percent Auto 0.4 % (0-2); Eosinophils Absolute Auto 0.2 X10*3/uL (0.0-0.4); Eosinophils Percent Auto 2.5 % (0-4); Hematocrit 34.8 % (42.0-52.0); Hemoglobin 11.5 g/dl (14.0-18.0); Imm Gran Abs Auto 0.07 X10*3/uL (0.00-0.03); Lymphocytes Absolute Auto 2.1 X10*3/uL (1.2-4.9); Lymphocytes Percent Auto 29.2 % (20-40); Mean Corpuscular Hemoglobin 31.2 pg (27.0-33.0); Mean Corpuscular Volume 94.3 fL (80.0-98.0); Mean Platelet Volume 10.6 fL (9.4-12.4); Monocytes Absolute Auto 0.6 X10*3/uL (0.1-1.2); Monocytes Percent Auto 8.1 % (2-11); Neutrophils Absolute Auto 4.2 x10*3/uL (2.0-8.3); Neutrophils Percent Auto 58.8 % (45-73); Platelet Count 284 X10*3/uL (160-400); Red Blood Count 3.69 X10*6/uL (4.60-5.80); Red Cell Distribution Width 13.5 % (11.0-16.0); White Blood Count 7.2 X10*3/uL (4.8-10.8)
[2024-12-05 13:55] LABS: Estimated Average Glucose 108 mg/dL; Hemoglobin A1C 108.7677 umol/L; Hemoglobin A1c % 5.4 % (<6.0); Total Hemoglobin (HGBA1C) 3106.4202 umol/L
[2024-12-05 14:06] LABS: Creatinine Urine 98.14 mg/dL; Protein/Creatinine Ratio, Ur 0.16 (<0.2); Total Protein Urine Random 16 mg/dL (<12)
[2024-12-05 14:16] LABS: Iron 55 mcg/dL (45-160); Percent Iron Saturation 23 % (15-50); Total Iron Binding Capacity 243 mcg/dL (228-428); Unsaturated Iron Binding 188 ug/dL
[2024-12-05 14:30] LABS: Prostate Specific Antigen 1.05 ng/mL (<0.05-4.0)
[2024-12-05 14:34] LABS: Ferritin 250 ng/mL (20-250); Vitamin D 25-OH Total 12.9 ng/mL (>30)
[2024-12-05 14:42] LABS: Alanine Aminotransferase 16 U/L (0-40); Albumin Level 3.9 g/dL (3.5-5.0); Alkaline Phosphatase 71 U/L (39-117); Anion Gap 12 (12-20); Aspartate Amino Transferase 19 U/L (5-37); Bilirubin Total 0.4 mg/dL (0.0-1.0); Blood Urea Nitrogen 23 mg/dL (9-16); Calcium 8.8 mg/dL (8.4-10.2); Carbon Dioxide 22 mmol/L (22-29); Chloride 110 mmol/L (96-108); Cholesterol 118 mg/dL (<200); Estimated Glomerular Filt Rate > 60; Glucose Fasting 102 mg/dL (60-99); HDL Cholesterol 40 mg/dL (>40); LDL Cholesterol Calculated 71 mg/dL (<100); Potassium 4.1 mmol/L (3.3-5.1); Sodium 140 mmol/L (135-145); Total Protein 6.5 g/dL (6.5-8.0); Triglycerides 37 mg/dL (<150)
[2024-12-05 14:59] LABS: Uric Acid 3.7 mg/dL (3.4-7.0)
== END 2024-12-05 10:48 | disposition home or self-care (01) ==
LOC: HO.HMGCLDS 10:47
PROVIDERS: PCP Internal Medicine; Referring Provider Internal Medicine Nephrology; Visit Provider Internal Medicine
DX: Z12.5 Encounter for screening for malignant neoplasm of prostate (principal); R53.83 Other fatigue; E11.9 Type 2 diabetes mellitus without complications
CPT/HCPCS: 36415; 80053; 80061; 82306; 82570; 82728; 83036; 83540; 84153; 84156; 84550; 85025

== ENCOUNTER 2025-01-23 07:37 | Outpatient (AMB) | payer MEDICARE, OTHER, SELFPAY ==
--- NOTE | 2025-01-23 07:39 | MHC.OFFVIS ---
Intake Visit Reasons: 5w follow up Intake Note: patient presents today for follow up visit for erectile dysfunction/testosterone Urology Medication: Tadalafil Blood Thinner:none Antibiotic Allergies: [employer] Analytics Manager Required: No Accompanied by: Self / Same As Patient Allergies No Known Allergies (No Known Allergies*) Allergy (Verified 01/23/25 07:40) Medication List - Last Reconciled 01/23/25 by Berna Hallman MD acetaminophen (Tylenol) 650 mg PO Q6H PRN albuterol sulfate 90 mcg/actuation 2 puffs inhalation Q6H PRN allopurinol 300 mg PO DAILY lisinopril 20 mg PO DAILY nebivolol (Bystolic) 10 mg PO DAILY simvastatin 20 mg PO BEDTIME tadalafil 5 mg PO DAILY tirzepatide (Mounjaro) 2.5 mg subcut QWEEK HPI Comments Details: 01/23/25-- History of Present Illness - The patient is a 69-year-old male presenting with low testosterone, h/o kidney stones, FH prostate cancer. - Initially evaluated for low testosterone and started on Cialis 5 mg daily. - Reports improvement in libido since starting treatment. - Interested in continuing Cialis with a trial of on-demand 20 mg no more than twice a week. - History of kidney stones with a normal renal ultrasound on 11/24/24 showing no recurrence. - Prior blood work showed testosterone level at 244. - PSA level on 12/05/24 was 1.05, with plans to monitor yearly. Results - Renal ultrasound on 11/24/24: Normal, no recurrent kidney stones. - Testosterone level: 244. - PSA level on 12/05/24: 1.05. Discussion Notes I discussed with the patient the continuation of Cialis 5 mg daily and a trial of on-demand Cialis 20 mg no more than twice a week. We reviewed the normal renal ultrasound findings and reassured him about the absence of recurrent kidney stones. I also explained the importance of monitoring PSA levels yearly and checking testosterone levels in a year. [facility] Medical History Elevated cholesterol Arthritis Back pain Kidney stones Gout HTN (hypertension) TONY on CPAP Surgical History Hx of arthroscopy of knee History of surgery on right wrist History of cystoscopy History of lithotripsy History of left hip replacement History of partial nephrectomy Hx of exploratory laparotomy Hx of colonoscopy Social History Are you a primary health care sanitary technician to a significant other at home: No Do you presently have visiting nurse or other home services: No Review of Systems Const All systems reviewed & are unremarkable except as noted in HPI and below Reports no additional complaints Eyes Reports no additional complaints ENT Reports no additional complaints Card Reports no additional complaints Resp Reports no additional complaints GI Reports no additional complaints Reports as per HPI Musc Reports no additional complaints Skin/Breast Reports system reviewed and no additional complaints, except as documented Neuro Reports no additional complaints Psych Reports no additional complaints Endo Reports no additional complaints Shayan/Lymph Reports no additional complaints Aller/Immun Reports no additional complaints Telehealth Telehealth Telehealth Platform: [facility] Location of provider rendering services: practice address Location of patient: address on file Patient Identification confirmed using: Name, : Yes Telehealth method: video Patient verbally consented to treatment: Yes Patient verbally consented to billing insurance company: Yes Patient informed of any privacy concerns related to visit: Yes Results Reviewed Results Reviewed: Date of Service: 11/24/24 US Renal Comparison: None Findings: Right kidney normal size and echotexture, 12.8 cm length. Left kidney normal size and echotexture, 11.6 cm length. No hydronephrosis of either kidney. Normal color Doppler IMPRESSION: 1. Normal kidneys. Assessment & Plan Assessment & Plan (1) Low testosterone: Code(s): R79.89 - Other specified abnormal findings of blood chemistry Category: Medical (2) Erectile dysfunction: Code(s): N52.9 - Male erectile dysfunction, unspecified Category: Medical (3) History of kidney stones: Code(s): Z87.442 - Personal history of urinary calculi Category: Medical (4) Screening PSA (prostate specific antigen): Code(s): Z12.5 - Encounter for screening for malignant neoplasm of prostate Category: Medical (5) Family history of prostate cancer: Code(s): Z80.42 - Family history of malignant neoplasm of prostate Category: Medical Plan Plan - Continue Cialis 5 mg daily with a trial of on-demand 20 mg no more than twice a week. - Script Cialis 20 mg sent to pharm - Monitor PSA levels yearly and check testosterone levels in a year. Orders: Orders PSA,Total (Free>4and<10) 10 Months Z12.5 - Encounter for screening for malignant neoplasm of prostate Testosterone, Free/Total 10 Months R79.89 - Other specified abnormal findings of blood chemistry Medications: Changed From tadalafil Take Thursday, thursday, Fridays 5 mg PO MOWEFR 30 tabs 1RF To tadalafil 5 mg PO DAILY 30 tabs 7RF Patient Instructions: The patient had an opportunity to ask questions regarding treatment plan. The patient expressed understanding and agreement with the above treatment plan. The patient is aware they should contact our office by phone for worsening of their current condition or the appearance of new symptoms. Compliance is encouraged with any medications and followup testing that is ordered. It is a privilege to be allowed the opportunity to participate in the urologic care of your patient. If you have any questions or concerns regarding treatment for the above conditions please do not hesitate to contact me. The office telephone contact is [phone]. This note is constructed in part using voice recognition software. While every effort has been made to ensure accuracy risk control director errors may have been included. Yours sincerely, Berna Hallman MD Scribe Plan - Not visible on output: Patient was informed and verbally consented to the use of an ambient scribe for clinic note documentation during this visit. Coding Level of Care Code Tele Est Pt Level 4 (55461) Diagnoses Low testosterone R79.89 Erectile dysfunction N52.9 History of kidney stones Z87.442 Screening PSA (prostate specific antigen) Z12.5 Family history of prostate cancer Z80.42
--- OUTSIDE RECORDS SUMMARY | 2025-01-23 07:39 | XMS_ITS | Clinical Summary ---
Author Organization [facility] Address [address] [place] [address] Phone Care Team Providers Care Door Builder Name Role Phone Fabio De La Garza MD Primary Care Provider [phone] Allergies No known active allergies Medications nebivoloL (BYSTOLIC) 20 mg tablet Take 1 tablet (20 mg total) by mouth 1 (one) time each day. 08/02/2024 Active lisinopril (PRINIVIL,ZESTR IL) 40 mg tablet Take 1 tablet (40 mg total) by mouth 1 (one) time each day. 12/19/2024 Active simvastatin (ZOCOR) 20 mg tablet Take 1 tablet (20 mg total) by mouth 1 (one) time each day. Active allopurinoL 200 mg tablet Take 1 tablet by mouth 1 (one) time each day. Active albuterol HFA (PROAIR HFA ; PROVENTIL HFA ; VENTOLIN HFA) 90 mcg/actuation inhaler Inhale 2 puffs by mouth every 4 (four) hours. 10/01/2022 Active doxazosin (CARDURA) 4 mg tablet Take 1 tablet (4 mg total) by mouth daily. 11/16/2024 Active ergocalciferol (VITAMIN D-2) 1,250 mcg (50,000 unit) capsule Take 1 capsule (50,000 Units total) by mouth. 12/22/2024 Active hydrALAZINE (APRESOLINE) 50 mg tablet Take 1 tablet (50 mg total) by mouth. 12/26/2022 Active sildenafiL (VIAGRA) 100 mg tablet Take 1 tablet (100 mg total) by mouth. 11/08/2020 Active tadalafiL (CIALIS) 5 mg tablet TAKE 1 TABLET EVERY THURSDAY, THURSDAY, Fridays12/19/2024 Active Mounjaro 7.5 mg/0.5 mL injection 0.5 mL (7.5 mg total). 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 Patient is on Mounjaro. Carpal tunnel syndrome 12/30/2024 Acquired trigger finger of left ring finger 12/2024 Obstructive sleep apnea syndrome 12/30/2024 Overview (12/30/2024): Patient on CPAP H/O partial nephrectomy 12/30/2024 Overview (12/30/2024): Partial left nephrectomy per notes by Dr. Paz H/O total hip arthroplasty, left 12/30/2024 Overview (12/30/2024): Done over at [facility] 2018 Mild intermittent asthma without complication Overview (12/30/2024): Noted on record from nephrology Enlarged prostate 12/30/2024 Overview (12/30/2024): Noted on records from nephrology History of adenomatous polyp of colon 05/29/2022 Chronic kidney disease due to benign hypertensio n 01/02/2021 Primary hypertension 12/21/2020 Obesity 12/21/2020 Encounters Date Type Department Care Team Description 01/11/2025 9:30 AM EDT Treatment [facility] Occupational Therapy [address] [place] [phone] Ihsan Connor, OT Acquired trigger finger of left ring finger (Primary Dx); Carpal tunnel syndrome, bilateral 01/09/2025 11:30 AM EDT Treatment [facility] Occupational Therapy [address] [phone] Ihsan Connor, OT Acquired trigger finger of left ring finger (Primary Dx); Carpal tunnel syndrome, bilateral 01/04/2025 2:00 PM EDT Treatment [facility] Occupational Therapy [address] [phone] Ihsan Connor, OT Acquired trigger finger of left ring finger (Primary Dx); Carpal tunnel syndrome, bilateral 01/02/2025 9:15 AM EDT Treatment [facility] Occupational Therapy [address] [phone] Ihsan Connor, OT Carpal tunnel syndrome, bilateral (Primary Dx); Carpal tunnel syndrome; Acquired trigger finger of left ring finger 01/02/2025 Plan of Care Documentation [facility] Occupational Therapy [address] [phone] 12/30/2024 9:00 AM EDT Office Visit [facility] [place] [address] [facility] [address] [place] [phone] Antonina Melendez MD Carpal tunnel syndrome (Primary Dx); Acquired trigger finger of left ring finger; Type 2 diabetes mellitus with diabetic microalbuminuria, without long-term current use of insulin (CMS/HCC V24, CMS/HCC V28); Obstructive sleep apnea syndrome; H/O partial nephrectomy; H/O total hip arthroplasty, left; Mild intermittent asthma without complication; Enlarged prostate from Last 3 Months Surgical History Surgery Date Site/Laterality Comments ORIF RADIUS & ULNA FRACTURES 07/27/1973 - 07/26/1974 Rig ht radius Social History Tobacco Use Types Packs/Day Years Used Date Smoking Tobacco: Never Assessed Sex and Gender Information Value Date Recorded Sex Assigned at Not on file Legal Sex Male 9:41 AM EST Gender Identity Not on file Sexual Orientation Not on file Obstetrics History Last Filed Vital Signs Vital Sign Reading Time Taken Comments Blood Pressure - - Pulse - - Temperature - - Respiratory Rate - - Oxygen Saturation - - Inhaled Oxygen Concentration - - Weight 116 kg (255 lb) 12/30/2024 9:14 AM EDT Height 167.6 cm (5' 6 ) 12/30/2024 9:14 AM EDT Body Mass Index 41.16 12/30/2024 9:14 AM EDT Plan of Treatment Upcoming Encounters Date Type Department Care Team (Latest Contact Info) Description 03/16/2025 7:30 AM EDT Hospital Encounter [facility] [address] [place] [phone] Antonina Melendez MD [address] [phone] 03/16/2025 7:30 AM EDT - 03/16/2025 8:45 AM EDT Surgery [facility] [address] [place] [phone] Antonina Melendez MD [address] [phone] ENDOSCOPIC RELEASE RIGHT CARPAL TUNNEL [[id number] (CPT )] 03/24/2025 11:45 AM EDT Office Visit [facility] [place] [address] [phone] Alicia Zamudio PA [address] [phone] Scheduled Procedures Name Priority Associated Diagnoses Date/Ti me RELEASE CARPAL TUNNEL ENDOSCOPIC Carpal tunnel syndrome 03/16/2025 7:30 AM EDT Health Maintenance Due Date Last Done Comments Diabetes: Annual GFR (Glomerular Filtration Rate) 1953 Diabetes: Annual Foot Exam 1963 Diabetes: Annual Retina Eye Exam 1963 Zoster Vaccines (2 of 2) 08/03/2024 06/08/2024 COVID-19 Vaccine (9 - Pfizer risk season) 2024 04/07/2024, 11/25/2023, 05/07/2023, Additional history exists Abdominal Aortic Aneurysm (AAA) Screen 12/07/2024 Cholesterol Screening (Lipid Panel) 12/07/2024 Colorectal Cancer Screening: Colonoscopy 12/07/2024 Depression Screening 12/07/2024 Falls Risk Assessment 12/07/2024 Hepatitis C Screening 12/07/2024 Medicare Annual Wellness Visit 12/07/2024 Social Influencers of Health Screening 12/07/2024 Hypertension/CHF/CAD Annual BMP Blood Test 12/30/2024 Diabetes: Annual Urine Albumin-Creatinine Ratio (uACR) 12/31/2024 Diabetes: Blood Sugar Control Test (HGBA1C) 12/31/2024 DTaP,Tdap,and Td Vaccines (2 - Td or Tdap) 02/22/2030 02/23/2020 Pneumococcal Vaccine: 50+ Years Completed 04/14/2023 RSV Immunization Adult Patients Completed 05/07/2023 Influenza Vaccine Completed 04/07/2024, , 04/07/2022, Additional history exists HIB Vaccines Aged Out No longer eligi ble based on patient's age to complete this topic HPV Vaccines Aged Out No longer eligi ble based on patient's age to complete this topic Hepatitis A Vaccines Aged Out No long er eligible based on patient's age to complete this topic Hepatitis B Vaccines Aged Out No long er eligible based on patient's age to complete this topic IPV Vaccines Aged Out No longer eligi ble based on patient's age to complete this topic MMR Vaccines Aged Out No longer eligi ble based on patient's age to complete this topic Meningococcal ACWY Vaccine Aged Out N o longer eligible based on patient's age to complete this topic Meningococcal B Vaccine Aged Out No l onger eligible based on patient's age to complete this topic RSV Immunization Patients Under 20 months Aged Out No longer eligible based on patient's age to complete this topic Varicella Vaccines Aged Out No longer eligible based on patient's age to complete this topic Insurance [facility]ICARE [facility] Care Teams Door Builder Relationship Specialty Start Date End Date Fabio De La Garza MD [address] [facility] KECIA Hong PCP - General Internal Medicine 06/08/17
== END 2025-01-23 08:38 | disposition home or self-care (01) ==
LOC: HO.HUSH 07:37
PROVIDERS: PCP Internal Medicine; Visit Provider Urology
DX: R79.89 Other specified abnormal findings of blood chemistry (principal); N52.9 Male erectile dysfunction, unspecified; Z87.442 Personal history of urinary calculi; Z12.5 Encounter for screening for malignant neoplasm of prostate; Z80.42 Family history of malignant neoplasm of prostate
CPT/HCPCS: 99214

== ENCOUNTER → 2025-01-23 07:37 | Outpatient (BNVA) | payer MEDICARE, OTHER, SELFPAY | PROVIDERS: PCP Internal Medicine; Visit Provider Urology | DX: Z13.89 Encounter for screening for other disorder (principal) ==

== ENCOUNTER 2025-05-16 10:57 | Outpatient (AMB) | payer MEDICARE, OTHER, SELFPAY ==
--- NOTE | 2025-05-16 11:13 | A.OFFPC_ITS ---
Vital Signs 05/16/25 11:16 Height 5 ft 7.44 in Weight 274 lb 6 oz BMI 42.4 BP 168/73 H Blood Pressure Location Lt brachial Position Sitting Pulse 58 Pulse Source Pulse Oximeter Temp 98.2 F Temp Source Temporal Artery Scan Pulse Oximetry (%) 97 Oxygen Delivery Method Room Air Intake Visit Reasons: New Patient / Dr De La Garza Intake Note: wants to discuss Monjuaro. Has been on 7.5 m x 6 months and has hit a plateau. Wants 90 day refills on all his medications Accompanied by: Self / Same As Patient Allergies No Known Allergies (No Known Allergies*) Allergy (Verified 05/16/25 11:14) Tobacco use date assessed: 05/16/25 Fall risk assessment: No Falls in past year Last assessed Fall Risk: 05/16/25 Dental Screening Dental Screen Date: 05/16/25 Did you have a dental visit in the last 12 months?: Yes Was dental information given to patient?: Patient has dentist [facility] Medical History Elevated cholesterol Arthritis Back pain Kidney stones Gout HTN (hypertension) TONY on CPAP Surgical History Hx of arthroscopy of knee History of surgery on right wrist History of cystoscopy History of lithotripsy History of left hip replacement History of partial nephrectomy Hx of exploratory laparotomy Hx of colonoscopy (~01/23/21) Family History (Updated 05/16/25 @ 11:22 by Astrid Gutierrez CMA) Mother No problems noted. Father No problems noted. Social History Are you a primary child care center assistant director to a significant other at home: No Do you presently have visiting nurse or other home services: No Questionnaire PHQ-9 Over the last 2 weeks, how often have you been bothered by any of the following problems? 1. Little interest or pleasure in doing things: not at all 2. Feeling down, depressed, or hopeless: not at all 3. Trouble falling or staying asleep, or sleeping too much: not at all 4. Feeling tired or having little energy: not at all 5. Poor appetite or overeating: not at all 6. Feeling bad about yourself - or that you are a failure or have let yourself or your family down: not at all 7. Trouble concentrating on things, such as reading the newspaper or watching television: not at all 8. Moving or speaking so slowly that other people could have noticed. Or the op posite - being so fidgety or restless that you have been moving around a lot more than usual: not at all 9. Thoughts that you would be better off or of hurting yourself in some way: not at all Total score: 0 Source: Developed by Drs. Jd Lebron, Jaclyn Cam, Lamine Clark and colleagues, with an educational xochitl from [employer]. Thrive Questionnaire Date Thrive assessed: 05/16/25 I am a: Patient What is your living situation today?: I have a steady place to live Within the past 12 months, did the food you bought not last and you didn't have the money to get more?: Never true Within the past 12 months, did you worry whether your food would run out before you got money to buy more?: Never true Do you have trouble paying for medicines?: No Do you have trouble getting transportation to medical appointments?: No Do you have trouble paying your heating and electricity bill?: No Do you have trouble taking care of your child, family member or friend?: No Do you have trouble with day-to-day activities such as bathing, preparing meals, shopping, managing finances, etc.?: No Are you currently unemployed and looking for a job?: No Are you interested in more education?: Yes Please select the resources that you would like help with: Education and None THRIVE Score: 0 AUDIT C Alcohol Use Questionnaire (AUDIT-C) 1. How often do you have a drink containing alcohol?: 2-3 times a week 3. How often do you have six or more drinks on one occasion?: Never Total Score: 3 SILVIA-7 AMB Questionnaire SILVIA-7 Date SILVIA - 7 assessed: 05/16/25 Feeling nervous, anxious, or on edge: 0 = Not at all Not being able to stop or control worryin = Not at all Worrying too much about different things: 0 = Not at all Trouble relaxin = Not at all Being so restless that it is hard to sit still: 0 = Not at all Becoming easily annoyed or irritable: 0 = Not at all Feeling afraid as if something awful might happen: 0 = Not at all Total SILVIA-7 score (0-4 normal; 5-9 mild; 10-14 moderate; 15-21 severe): 0 Source: Developed by Drs. Jd Lebron, Jaclyn Cam, Lamine Clark and colleagues, with an educational xochitl from [employer]. Physical exam (Primary Care) Vital Signs: Last Vital Signs Temp 98.2 F 05/16/25 11:16 Pulse 58 05/16/25 11:16 BP 168/73 H 05/16/25 11:16 Pulse Ox 97 05/16/25 11:16 Oxygen Delivery Method Room Air 05/16/25 11:16 BMI result Body Mass Index 42.4 Tobacco/Smoking Status: Tobacco use Status Tobacco use date assessed 05/16/25 05/16/25 11:15 Patient Tobacco Use Status Former Tobacco user 05/16/25 11:25 PHQ-9: PHQ-9 Score PHQ-9: Total score 0 05/16/25 11:25 Thrive Assessment: Date of Thrive Assessment Date Thrive assessed 05/16/25 05/16/25 11:25 Office Procedures Flu Questionnaire Does the patient have a severe egg allergy?: No Does the patient have severe life threatening allergies?: No Does the patient have a fever or illness today?: No Has the patient ever had Guillain-[place] Syndrome?: No Has the patient ever had any past reaction to a flu shot?: No Immunizations Fluarix [id number] (PF) 45 mcg (15 mcg x 3)/0.5 mL IM syringe Performing Provider: Andrzej Souza MD [facility] [place] Documented (not given) by: Astrid Gutierrez CMA on 05/16/25 11:13 Reason Not Given: Received Previously Coding Assessment & Plan Assessment & Plan Orders: Orders Influenza [id number] Immunization Today Z23 - Encounter for immunization
[2025-05-16 11:16] VITALS: BP 168/73; PULSE 58; TEMP 36.8; O2SAT 97; BMI 42.4
--- OUTSIDE RECORDS SUMMARY | 2025-05-16 13:40 | XMS_ITS | Data Portability ---
Author Organization [facility], OFFICE Address [address] [facility], [facility] [address] [place] [address] Assessment Encounter Date Assessment Date Assessment LastModified [...] Singh MD [address], [place], [address], [place] - Comp-Assistd and Rcnstrctive Surgry 08/12/2017 17:33:36 General Surgery completed Gera Singh MD [address], [place], [address], [place] - Comp-Assistd and Rcnstrctive Surgry 08/12/2017 17:34:06 Knee Surgery completed Gera Singh MD [address], [place], [address], [place] - Comp-Assistd and Rcnstrctive Surgry 08/12/2017 17:34:25 Hip Surgery completed Gera Singh MD [address], [place], [address], [place] - Comp-Assistd and Rcnstrctive Surgry 10/26/2017 [...] Body mass index (BMI) Body weight Systolic And Diastolic Provider Name and Address Organization Details Last Updated DateTime 08/12/2017 167.64 cm 38.7 kg/m2 220596.17 g 166/84 mm[Hg] Alicia Jones [place] - Comp-Assistd and Rcnstrctive Surgry 08/12/2017 16:31:54 Date Recorded Body height Body mass index (BMI) Body weight Systolic And Diastolic Provider Name and Address Organization Details Last Updated DateTime 08/17/2024 167.64 cm 41.2 kg/m2 995180.05 g 148/86 mm[Hg] Alicia Jones [place] - Comp-Assistd and Rcnstrctive Surgry 08/17/2024 13:24:12 Date Recorded Body height Body mass index (BMI) Body weight Systolic And Diastolic Provider Name and Address Organization Details Last Updated DateTime 10/26/2017 167.64 cm 39.2 kg/m2 785214.95 g 150/73 mm[Hg] Alicia Jones [place] - Comp-Assistd and Rcnstrctive Surgry 10/26/2017 13:11:40 Date Recorded Body height Body mass index (BMI) Body weight Provider Name and Address Organization Details Last Updated DateTime 11/23/2017 167.64 cm 39.5 kg/m2 203997.13 g Alicia Jones [place] - Comp-Assistd and Rcnstrctive Surgry 11/23/2017 12:07:21 Social History Question Answer Notes LastModified by Organizat ion Details LastModified Time Tobacco Smoking Status Former Smoker Gera Singh MD [address] [place] [address],[facility] [address], [place], [address], [place] - Comp-Assistd and Rcnstrctive Surgry 08/12/2017 17:32:27 What Was The Date Of Your Most Recent Tobacco Screening? 04/11/2024 [email or web address] Information not available 04/11/2024 Has Tobacco Cessation Counseling Been Provided? No [email or web address] Information not available 04/11/2024 Sex: Unknown Functional Status Question Answer Note LastModified by Organization D etails LastModified Time Do you or have you ever used any other forms of tobacco or nicotine? No [email or web address] Information not available 04/11/2024 Are you able to care for yourself independently? Yes [email or web address] Information not available 04/11/2024 Mental Status None recorded. Family [...] Thyroid Problems N Anemia N Heart Attack (MS) N Ulcers N Diabetes N Bleeding Disorder N Seizures/Epilepsy N Tuberculosis N AIDS/HIV N Asthma N Peripheral Vascular Disease N Hepatitis N Pulmonary Embolism N Hypertension Y Osteoporosis N Past Encounters Encounter ID Performer Location Encounter Start Date Encounter Closed Date Diagnosis/Indication Diagnosis SNOMED-CT Code Diagnosis ICD10 Code Diagnosis IMO Codes Diagnosis Note [id number] Gera Singh MD OFFICE 125 [facility] [address] [address] 08/12/2017 15:36:56 08/23/2017 15:09:43 [id number] Gera Singh MD OFFICE [address] [facility] [address] [address] 10/26/2017 12:18:58 10/26/2017 15:39:01 [id number] Gera Singh MD OFFICE [address] [facility] [address] [address] 11/23/2017 11:58:03 11/24/2017 17:00:49 [id number] Gera Singh MD [facility] [address] [place] [address] 04/11/2024 07:51:20 05/11/2024 16:35:13 [id number] Gera Singh MD OFFICE [address] [facility] [address] [address] 08/17/2024 12:40:59 08/24/2024 09:32:18 Health Concerns Section Related Observation LastModified by Organization Detai ls LastModified Time None Recorded Concern Status LastModified by Organization Details LastModified Time None Recorded Advance Directives Directive None Recorded Payers Insurance Date Sequence Insurance Name Policy Number Policy Montanez Covered Member ID Montanez Member ID Guarantor Name 08/24/2024 2 [facility] INDEMNITY PLAN (INDEMNITY) [id number] Espinoza Burrows [id number] Espinoza Burrows 08/03/2024 2 [facility] INDEMNITY PLAN (INDEMNITY) Espinoza Burrows 08/14/2024 1 MEDICARE B-LA: [facility] [employer] Espinoza Burrows [id number] Espinoza Burrows Notes Date Note Type Note Provider Name and Address Organization Details Recorded Time 08/12/2017 text/html Hip(s) AthenaRep orted by PatientHPIFor location, patient reportsleft,groin, andthigh. For severity, patient reportssevere. For alleviating factors, patient reportsrestandstretch ing. For aggravating factors, patient reportsstanding,walki ng, andgoing from sit to stand. For associated symptoms, patient reportsno weakness,no numbness,no tingling,no swelling,no redness,no warmth,no ecchymosis,no catching/locking,no popping/clicking,no buckling,no grinding,no instability,no radiation down leg,no drainage,no fever,no chills,no weight loss, andno change in bowel/bladder habits. For prior imaging, patient reportsx ray. For previous pt, patient reportsdid not help.ROS as noted in the HPI Gera Singh MD [address] [place] [address],[facility] [address], [place], [address], [place] - Comp-Assistd and Rcnstrctive Surgry 08/12/2017 17:36:47 10/26/2017 text/html Hip(s) AthenaRep orted by PatientHPIFor location, patient reportsleftandgroin. For severity, patient reportssevere. For alleviating factors, patient reportsrestandstretch ing. For associated symptoms, patient reportsno weakness,no numbness,no tingling,no swelling,no redness,no warmth,no ecchymosis,no catching/locking,no popping/clicking,no buckling,no grinding,no instability,no radiation down leg,no drainage,no fever,no chills,no weight loss, andno change in bowel/bladder habits. For prior imaging, patient reportsx rayandct scan. For previous pt, patient reportshelped significantly. For aggravating factors, (active hip flexion).ROS as noted in the [facility] Gera Singh MD [address],[facility] [address], [place], [address], [place] - Comp-Assistd and Rcnstrctive Surgry 10/26/2017 14:27:21 11/23/2017 text/html Hip(s) AthenaRep orted by PatientHPIFor location, patient reportsleftandgroin. For severity, patient reportsslight. For alleviating factors, patient reportsiceandstretchi ng. For aggravating factors, patient reportsexercise. For associated symptoms, patient reportsno weakness,no numbness,no tingling,no swelling,no redness,no warmth,no ecchymosis,no catching/locking,no popping/clicking,no buckling,no grinding,no instability,no radiation down leg,no drainage,no fever,no chills,no weight loss, andno change in bowel/bladder habits. For prior imaging, patient reportsx rayandct scan. For previous pt, patient reportshelped significantly.ROS as noted in the [facility] Gera Singh MD [address],[facility] [address], [place], [address], [place] - Comp-Assistd and Rcnstrctive Surgry 11/23/2017 13:39:20 04/11/2024 text/html Hip(s) AthenaRep orted by PatientHPIFor location, patient reportsright,groin,th igh, andbuttocks. For severity, patient reportsmoderate. For alleviating factors, patient reportsrest. For aggravating factors, patient reportswalking,weight bearing,exercise, andgoing from sit to stand. For associated symptoms, patient reportsno weakness,no numbness,no tingling,no swelling,no redness,no warmth,no ecchymosis,no catching/locking,no popping/clicking,no buckling,no grinding,no instability,no radiation down leg,no drainage,no fever,no chills,no weight loss, andno change in bowel/bladder habits. For prior imaging, patient reportsx rayandct scan. For previous pt, patient reportsdid not help.ROS as noted in the HPI Gera Singh MD [address],[facility] [address], [place], [address], [place] - Comp-Assistd and Rcnstrctive Surgry 04/11/2024 08:57:42 08/17/2024 text/html Hip(s) AthenaRep orted by PatientHPIFor location, patient reportsright,groin,th igh, andbuttocks. For severity, patient reportsmoderate. For alleviating factors, patient reportsrest. For aggravating factors, patient reportswalking,weight bearing,exercise, andgoing from sit to stand. For associated symptoms, patient reportsno weakness,no numbness,no tingling,no swelling,no redness,no warmth,no ecchymosis,no catching/locking,no popping/clicking,no buckling,no grinding,no instability,no radiation down leg,no drainage,no fever,no chills,no weight loss, andno change in bowel/bladder habits. For prior imaging, patient reportsx rayandct scan. For previous pt, patient reportsdid not help.ROS as noted in the HPI Gera Singh MD [address],[facility] [address], [place], [address], [place] - Comp-Assistd and Rcnstrctive Surgry 08/17/2024 15:06:14
--- OUTSIDE RECORDS SUMMARY | 2025-05-16 13:41 | XMS_ITS | Encounter Summary ---
Author Organization [facility] Address [address] [place] [address] [place] [address] Phone Care Team Providers Care Web Development Instructor Name Role Phone Fabio De La Garza MD Primary Care Provider +1- [phone] Reason for Referral * Physical Therapy (Routine) - Closed Specialty Diagnoses / Procedures Referred By Tang barker Referred To Contact Physical Therapy Diagnoses Encounter for rehabilitation Gera Singh MD Phone: tel: fax: [facility] [address] [place] [address] Phone: tel: Referral ID Status Reason Start Date Expiration Date Visits Re quested Visits Authorized [id number] Closed 11/24/2017 11/24/2018 1 1 Encounter Details Date Type Department Care Team (Latest Contact Info) Description 11/24/2017 Transcribe Orders [facility] [address] [place] [address] Gera Singh MD [address] [place] [address] Encounter for rehabilitation (Primary Dx) Social History Tobacco Use Types Packs/Day Years Used Date Smoking Tobacco: Never Assessed Sex and Gender Information Value Date Recorded Sex Assigned at Male 12/31/2022 11:30 AM EDT Legal Sex Male 3:27 PM EST Gender Identity Male 12/31/2022 11:30 AM EDT Sexual Orientation Straight 12/31/2022 11 :30 AM EDT documented as of this encounter Plan of Treatment Scheduled Referrals Name Type Priority Associated Diagnoses Orde r Schedule Ambulatory referral to [facility] Physical Therapy Outpatient Referral Routine Encounter for rehabilitation Ordered: 11/24/2017 documented as of this encounter Visit Diagnoses Diagnosis Encounter for rehabilitation- Primary documented in this encounter Additional Health Concerns Infection Onset Date Last Indicated Resolved Time CoV-Risk 05/22/2022 05/22/2022 06/02/2022 1:23 AM EST RSV 05/22/2022 05/22/2022 05/29/2022 1:23 AM EDT documented as of this encounter Care Teams Web Development Instructor Relationship Specialty Start Date End Date Fabio De La Garza MD [address] [place] [address] PCP - General Internal Medicine 10/08/17 documented as of this encounter Additional Source Comments The information contained in this document represents components of the legal health record. It is not the complete legal health record.[facility]
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
--- OUTSIDE RECORDS SUMMARY | 2025-05-16 13:41 | XMS_ITS | Patient Health Record ---
Author Organization [facility] Address [address] [place] [address] Care Team Providers Care Electrician Substation Name Role Phone Dr. Indra Padron Unavailable [phone] Reason For Referral No Information Medications Medication SIG (Take, Route, Frequency, Duration) Notes Start Date End Date Status Lisinopril 10 MG 1 tab(s) orally once daily; Duration: 30 day(s) Active Simvastatin 20 MG 1 tab(s) orally at bedtime; Duration: 30 day(s) Active ASA - BABY 81 MG 1 TAB Q AM *Please review for potential replacement for e-prescription and drug interaction check* Active Allopurinol 300 MG 1 tab(s) orally once daily; Duration: 30 day(s) Active Tylenol 350 MG 1-2 TABS PRN; Duration: PRN PAIN / FEVER *Please review and pick correct strength-formulation from Medispan options. If intended option is not shown, discontinue and re-order from Quick Search* Active Plan Of Treatment No Information Insurance Providers Payer Name Payer Address Payer Phone Subscriber Number Group Number Insured Name Patient Relationship to Insured Coverage Start Date Coverage End Date [id number] Markos Jerrysteve Self - patient is the insured Medical (General) History Medical History History ICD Code kidney stones Surgical History Surgery Date(Month/Year) Lt kidney stone removal 1982
--- OUTSIDE RECORDS SUMMARY | 2025-05-16 13:41 | XMS_ITS | Encounter Summary ---
Author Organization [facility] Address [address] [place] [address] [place] [address] Phone Care Team Providers Care Assistant Food Service Director Name Role Phone Fabio De La Garza MD Primary Care Provider +1- [phone] Encounter Details Date Type Department Care Team (Late st Contact Info) Description 03/21/2023 Procedure Pass [facility] - [facility] [address] [place] [address] Social History Tobacco Use Types Packs/Day Years Used Date Smoking Tobacco: Never Smokeless Tobacco: Never Education Answer Date Recorded Are you interested in more education? Not on tigre e 11/21/2022 Are you concerned about learning? Not on file 11/21/2022 No 11/21/2022 No 11/21/2022 Digital Access Answer Date Recorded No 12/23/2022 No 12/23/2022 Reliable internet access at home? Not on file 12/23/2022 Device with a working camera? Not on file Intimate Partner Violence Answer Date R ecorded Are you denied basic needs s uch as food, clothing, or medical care? No 03/21/2023 In the past 12 months have y ou been in a relationship with a person who hurts, threatens, or tries to control you? No 03/21/2023 Are you denied basic needs s uch as food, clothing, or medical care? No 03/21/2023 In the past 12 months have y ou been in a relationship with a person who hurts, threatens, or tries to control you? No 03/21/2023 Sex and Gender Information Value Date Recorded Sex Assigned at Male 12/31/2022 11:30 AM EDT Legal Sex Male 3:27 PM EST Gender Identity Male 12/31/2022 11:30 AM EDT Sexual Orientation Straight 12/31/2022 11 :30 AM EDT documented as of this encounter Functional Status * Calculated C-SSRS Risk Score (Lifetime/Recent) Answer Date of Assessment Author No Risk Indicated 03/21/2023 10:39 PM EDT Marissa Sandoval RN * [place] Suicide Severity Rating Scale (Screener/Recent Self-Report) Question Answer Date of Assessment Author 1. Wish to be (Past 1 Month) No 023 10:39 PM EDT Marissa Sandoval RN 2. Non-Specific Active Suici elton Thoughts (Past 1 Month) No 03/21/2023 10:39 PM EDT Abdoulaye Sandoval RN 6. Suicidal Behavior (Lifetime) No 10:39 PM EDT Marissa Sandoval RN documented as of this encounter Plan of Treatment Not on file documented as of this encounter Visit Diagnoses Not on filedocumented in this encounter Care Teams Assistant Food Service Director Relationship Specialty Start Date End Date Fabio De La Garza MD [address] [place] [address] PCP - General Internal Medicine 10/08/17 documented as of this encounter Additional Source Comments The information contained in this document represents components of the legal health record. It is not the complete legal health record.[facility]
--- OUTSIDE RECORDS SUMMARY | 2025-05-16 13:41 | XMS_ITS | Clinical Summary ---
Author Organization [facility] Address [address] [facility] [address] [place] [address] Phone Care Team Providers Care Cultured [employer]ble Products Maker Name Role Phone Fabio De La Garza MD Primary Care Provider +1- [phone] Allergies No known active allergies Medications simvastatin (ZOCOR) 10 MG tablet Take 10 mg by mouth nightly. Active lisinopril (PRINIVIL,ZESTR IL) 10 MG tablet Take 40 mg by mouth daily. Active allopurinol (ZYLOPRIM) 300 MG tablet Take 200 mg by mouth daily. Active nebivoloL (BYSTOLIC) 10 MG tablet Take 20 mg by mouth daily. Active NIFEdipine (PROCARDIA XL) 30 MG 24 hr tablet Take 30 mg by mouth daily. Active albuterol 90 mcg/actuation inhaler Inhale 2 puffs into the lungs every 3 (three) hours as needed. 3 Active hydrALAZINE (APRESOLINE) 50 MG tablet Take 1 tablet by mouth 2 (two) times a day. 3 Active fluticasone propionate (FLONASE) 50 mcg/actuation nasal sprayIndication s:Non-recurrent acute serous otitis media of right ear 1 spray by Nasal route daily. 11.1 mL 1 3 Active predniSONE (DELTASONE) 10 MG tabletIndicatio ns:Recurrent acute serous otitis media of right ear 40 mg po day 1,2.3 then taper 30mg PO day 4, 5, then 20mg po day 6 20 tablet 06/20/202 3 Active Additional Information Patient not taking.Reported on 03/21/2023 baclofen (LIORESAL) 10 MG tablet Take 1 tablet (10 mg total) by mouth every 8 (eight) hours as needed (muscle pain). 20 tablet Active Immunizations Immunization Administration Dates Next Due Tdap 02/23/2020 Social History Tobacco Use Types Packs/Day Years Used Date Smoking Tobacco: Never Smokeless Tobacco: Never Tobacco Cessation:Counseling Given: Not Answered Education Answer Date Recorded Are you interested [...] Orientation Straight 12/31/2022 11 :30 AM EDT Last Filed Vital Signs Vital Sign Reading Time Taken Comments Blood Pressure 150/49 03/21/2023 11:00 PM EDT Pulse 69 03/21/2023 10:30 PM EDT Temperature 36.6 C (97.9 F) 03/21/2023 10:30 PM EDT Respiratory Rate 24 03/21/2023 10:30 PM EDT Oxygen Saturation 98% 03/22/2023 1:30 AM EDT Inhaled Oxygen Concentration - - Weight 120.2 kg (265 lb) 03/21/2023 10:30 PM EDT Height 167.6 cm (5' 6 ) 03/21/2023 10:30 PM EDT Body Mass Index 42.77 03/21/2023 10:30 PM EDT Plan of Treatment Health Maintenance Due Date Last Done Comments DEPRESSION SCREENING 1965 HEPATITIS C SCREENING 1971 COLOGUARD 1998 COLONOSCOPY 1998 COLORECTAL CANCER SCREENING 1998 FIT TEST 1998 FOBT 1998 SIGMOIDOSCOPY 1998 VIRTUAL COLONOSCOPY 1998 PNEUMOCOCCAL VACCINES (50+ years) (1 of 1 - PCV) 2003 RSV VACCINE (1 - Risk 50-74 years 1-dose series) 2003 ZOSTER VACCINES (1 of 2) 2003 CREATININE LEVEL 03/21/2024 03/21/2023 POTASSIUM LEVEL 03/21/2024 03/21/2023 INFLUENZA VACCINE (#1) 2025 , 05/02/2021, 04/04/2020, Additional history exists COVID-19 VACCINE ( season) 2025 04/07/2024, 11/25/2023, 04/07/2022, Additional history exists LIPID PANEL 11/30/2028 12/01/2023 Adult Td,Tdap Booster 02/22/2030 02/23/2020 SMOKING STATUS SCREENING (Once After 26 Yrs) Completed 01/09/2023 HEPATITIS A VACCINES Aged Out No long er eligible based on patient's age to complete this topic HIB VACCINES Aged Out No longer eligi ble based on patient's age to complete this topic MENINGOCOCCAL VACCINES (ACWY) Aged Out No longer eligible based on patient's age to complete this topic MENINGOCOCCAL VACCINES (B) Aged Out N o longer eligible based on patient's age to complete this topic Medical Devices Not on file Procedures Procedure Name Priority Date/Time Associated Diagnosis Comments BASIC METABOLIC PANEL STAT 03/21/2023 11:10 PM EDT from Last 3 Months or Most Recently Relevant to Health Maintenance Results * (ABNORMAL) Basic metabolic panel (03/21/2023 11:10 PM EDT) SODIUM 138 135 - 145 mmol/L [facility] CHLORIDE 102 98 - 107 mmol/L [facility] POTASSIUM 4.2 3.5 - 5.0 mmol/L [facility] CO2 25 24 - 32 mmol/L [facility] BUN 33(H) 8 - 25 mg/dL [facility] CREATININE 1.34 0.50 - 1.40 mg/dL [facility] GLUCOSE 155(H) 70 - 110 mg/dL [facility] CALCIUM 9.0 8.5 - 10.0 mg/dL [facility] EGFR 57(L) >59 mL/min/1.7 3m2 [facility] Comment:Estimated glomerular filtration rate calculated using the CKD-EPI refit equation. ANION GAP 11 3 - 15 mmol/L [facility] Blood 03/21/2023 11:1 0 PM EDT 03/21/2023 11:17 PM EDT us Ranjan Camacho MD LAB BLOOD ORDERABLES Final Result [address] [address] from Last 3 Months or Most Recently Relevant to Health Maintenance Insurance MEDICARE PART A & B [facility] [employer] MEDICARE SUPPLEMENT MEDICARE PART A & B [facility] MEDICARE SUPPLEMENT MEDICARE PART A & B [employer] MEDICARE SUPPLEMENT MEDICARE PART A & B [employer] MEDICARE SUPPLEMENT MEDICARE PART A & B [facility] MEDICARE SUPPLEMENT MEDICARE PART A & B [facility] [employer]ION MEDICARE SUPPLEMENT MEDICARE PART A & [facility] EXTENSION MEDICARE SUPPLEMENT MEDICARE PART A & B [facility] MEDICARE SUPPLEMENT MEDICARE PART A & B [facility] [employer] MEDICARE SUPPLEMENT Care Teams Cultured Marble Products Maker Relationship Specialty Start Date End Date Fabio De La Garza MD [address] [place] [address] PCP - General Internal Medicine 10/08/17 Additional Source Comments The information contained in this document represents components of the legal health record. It is not the complete legal health record.[facility]
--- OUTSIDE RECORDS SUMMARY | 2025-05-16 13:41 | XMS_ITS | Encounter Summary ---
Author Organization [facility] Address [address] [place] [address] Phone Care Team Providers Care Revenue Stamper Name Role Phone Fabio De La Garza MD Primary Care Provider [phone] Reason for Referral * Physical Therapy (Routine) - Closed Specialty Diagnoses / Procedures Referred By Tang barker Referred To Contact Physical Therapy Diagnoses Encounter for rehabilitation Gera Singh MD Phone: tel: fax: [facility] [address] [place] [address] Phone: tel: fax: Referral ID Status Reason Start Date Expiration Date Visits Re quested Visits Authorized [id number] Closed 11/03/2017 02/05/2018 25 25 Encounter Details Date Type Department Care Team (Latest Contact Info) Description 10/27/2017 Transcribe Orders [facility] [address] [place] [address] Gera Singh MD [address] [place] [id number] Encounter for rehabilitation (Primary Dx) Social [...] on file documented as of this encounter Procedures Procedure Name Priority Date/Time Associated Diagnosis Comments AMB REFERRAL TO [facility] PHYSICAL THERAPY Routine 11/03/2017 5:55 PM EDT Encounter for rehabilitation documented in this encounter Results * Ambulatory referral to [facility] Physical Therapy (11/03/2017 5:55 PM EDT) Gera Singh MD AMB [facility] REFERRALS Final Result documented in this encounter Visit Diagnoses Diagnosis Encounter for rehabilitation- Primary documented in this encounter Additional Health Concerns Infection Onset Date Last Indicated Resolved Time CoV-Risk 05/22/2022 05/22/2022 06/02/2022 1:23 AM EST RSV 05/22/2022 05/22/2022 05/29/2022 1:23 AM EDT documented as of this encounter Care Teams Revenue Stamper Relationship Specialty Start Date End Date Fabio De La Garza MD [address] [place] [id number] PCP - General Internal Medicine 10/08/17 documented as of this encounter Additional Source Comments The information contained in this document represents components of the legal health record. It is not the complete legal health record.[facility]
--- OUTSIDE RECORDS SUMMARY | 2025-05-16 13:41 | XMS_ITS | Encounter Summary ---
Author Organization [facility] Address [address] [facility] [address] [place] [address] Phone Care Team Providers Care Used Car Sales Manager Name Role Phone Fabio De La Garza MD Primary Care Provider [phone] Encounter Details Date Type Department Care Team (Late st Contact Info) Description 11/11/2022 Telephone [facility] [address] [facility] [address] [place] [address] Yun Valdovinos Social History Tobacco [...] Care Team (Late st Contact Info) Description 12/21/2025 2:00 PM EDT Office Visit [facility] [address] [place] [address] Raymundo Paz MD [address] [place] [address] documented as of this encounter [...] Comment See Comment See Comment See Comment [facility] Comment: CLEAN CATCH (URINE) NONE NO GROWTH FINAL 11/19/2022 Testing performed or reported by [facility], a Service of [facility], [place] [address] Michael Henriquez MD, [employer] CLIA# [id number] 11/18/2022 10:0 9 AM EDT 11/18/2022 10:43 AM EDT Raymundo Paz MD LAB URINE ORDERABLES Final Re sult [facility] * (ABNORMAL) Vitamin D 25 Hydroxy (11/18/2022 10:09 AM EDT) Vitamin D, 25-Hydroxy 18.6(L) (20-50) NG/ML [facility] Comment: Testing performed or reported by [facility], a Service of [facility], [address] [place] [address] Alejandra Rhodes MD, [employer] CLIA# [id number] 11/18/2022 10:0 9 AM EDT 11/18/2022 10:43 AM EDT Raymundo Paz MD LAB BLOOD ORDERABLES Final Re sult Performing Organization Address City/[facility]/ZIP Co de Phone Number [facility] * (ABNORMAL) Urine Albumin / Creatinine Ratio (11/18/2022 10:09 AM EDT) Urine Microalbumin 518.6(H) (<20) MG/L [facility] Comment: The urine microalbumin test is designed to monitor renal function. When screening for Bence Luz proteinuria, urine electrophoresis is recommended. Microalbumin/Creati nine Ratio 427.5(H) (0-20) MG/GM [facility] Microalb/Creat Ratio 121.3 MG/DL [facility] Comment: Testing performed or reported by [facility], a Service of [facility], [address] [place] [address] Alejandra Rhodes MD, [employer] CLIA# [id number] 11/18/2022 10:0 9 AM EDT 11/18/2022 10:43 AM EDT Raymundo Paz MD LAB URINE ORDERABLES Final Re sult Performing Organization Address [facility] Co de Phone Number [facility] * (ABNORMAL) Protein, Total, Random Urine w/Creatinine (Protein/Creat Ratio) (11/18/2022 10:09 AM EDT) Pathologist [facility] Protein/Creatine Ratio 0.56(H) (0-0.2) [facility] Protein, Urine 68 MG/DL [facility] Comment: The urine microalbumin test is designed to monitor renal function. When screening for Bence Luz proteinuria, urine electrophoresis is recommended. Creatinine, Urine 121.3 MG/DL [facility] Comment: Testing performed or reported by [facility], a Service of [facility], [address] [place] [address] Alejandra Rhodes MD, [employer] [facility]# [id number] 11/18/2022 10:0 9 AM EDT 11/18/2022 10:43 AM EDT Raymundo Paz MD LAB URINE ORDERABLES Final Re sult Performing Organization Address [facility] de Phone Number [facility] * (ABNORMAL) Renal Function Panel (11/18/2022 10:09 AM EDT) Pathologist [facility] Glucose 116(H) (70-99) MG/DL [facility] BUN 25(H) (8-23) MG/DL [facility] Creatinine 1.3(H) (0.7-1.2) MG/DL [facility] Sodium 141 (133-145) MMOL/L [facility] Potassium 4.8 (3.6-5.2) MMOL/L [facility] Chloride 107 (98-107) MMOL/L [facility] Bicarbonate (CO2) 23 (22-29) MMOL/L [facility] Anion Gap 11 (4-17) [facility] Albumin 4.4 (3.4-4.8) GM/DL [facility] Calcium 9.4 (8.6-10.5) MG/DL [facility] Phosphorus, Serum 3.6 (2.5-4.5) MG/DL [facility] Est GFR Non 60 ML/MIN/1.7 3 M2 [facility] Comment: Creatinine based estimated glomerular filtration (eGFR) in adults is calculated using the National [employer] recommended 2020 CKD-EPI equation. Estimates GFR from serum creatinine, age and sex. Testing performed or reported by [facility], a Service of [address] [address] Alejandra Rhodes MD, [employer] CLIA# [id number] 11/18/2022 10:0 9 AM EDT 11/18/2022 10:43 AM EDT Raymundo Paz MD LAB BLOOD ORDERABLES Final Re sult Performing Organization Address [facility] de Phone Number [facility] * Magnesium (11/18/2022 10:09 AM EDT) Magnesium 1.9 (1.6-2.3) mg/dL [facility] Comment: Testing performed or reported by [facility], a Service of [facility], [address] [place] [address] Alejandra Rhodes MD, [employer] [place]# [id number] 11/18/2022 10:0 9 AM EDT 11/18/2022 10:43 AM EDT Raymundo Paz MD LAB BLOOD ORDERABLES Final Re sult Performing Organization Address [facility] de Phone Number [facility] * Albumin (11/18/2022 10:09 AM EDT) Albumin 4.4 (3.4-4.8) GM/DL [facility] Comment: Testing performed or reported by [facility], a Service of [address] [address] Alejandra Rhodes MD, [employer] CLIA# [id number] 11/18/2022 10:0 9 AM EDT 11/18/2022 10:43 AM EDT us Raymundo Paz MD LAB BLOOD ORDERABLES Final Re sult Performing Organization Address [facility] de Phone Number [facility] * (ABNORMAL) Urinalysis with microscopic (11/18/2022 10:09 AM EDT) Appearance LIGHT YELLOW [facility] Comment:CLEAR Specific [place] 1.017 (1.002-1. 030) [facility] pH Urine 6.0 (5.0-8.0) [facility] Albumin, Urine 1+(A) (NEG) [facility] Glucose, Ur NEGATIVE (NEG) [facility] Ketones, Urine NEGATIVE (NEG) [facility] Bilirubin Urine NEGATIVE (NEG) [facility] Hemoglobin Presence in Urine NEGATIVE (NEG) [facility] Nitrite, Urine NEGATIVE (NEG) [facility] Leukocyte Esterase Urine NEGATIVE (NEG) [facility] Urobilinogen Urine NORMAL (NORM) MG/DL [facility] WBC, Urine 1 (0-5) /HPF [facility] RBC, Urine 1 (0-3) /HPF [facility] Mucus, Urine SLIGHT /LPF [facility] Squamous Epithelial, Urine 1 (0-8) /HPF [facility] Comment: Testing performed or reported by [facility], a Service of [facility], [address] [place] [address] Alejandra Rhodes MD, [employer] [place]# [id number] 11/18/2022 10:0 9 AM EDT 11/18/2022 10:43 AM EDT Result [facility] Raymundo Paz MD LAB URINE ORDERABLES Final Re sult Performing Organization Address [facility] de Phone Number [facility] * PTH, Intact (11/18/2022 10:09 AM EDT) Pathologist [facility] PTH, Intact 56 (15-65) PG/ML [facility] Comment: Testing performed or reported by [facility], a Service of [facility], [address] [place] [address] Alejandra Rhodes MD, [employer] CLIA# [id number] 11/18/2022 10:0 9 AM EDT 11/18/2022 10:43 AM EDT Raymundo Paz MD LAB BLOOD ORDERABLES Final Re sult Performing Organization Address [facility]/ZIP Co de Phone Number [facility] * (ABNORMAL) CBC (11/18/2022 10:09 AM EDT) White Blood Cells 7.2 (4.0-11.0) K/MM3 [facility] RBC 3.83(L) (4.70-6.10 ) M/MM3 [facility] Hgb 12.3(L) (13.7-17.1 ) GM/DL [facility] Hematocrit 38.8(L) (40.5-50.0 ) % [facility] MCV 101.3(H) (80.0-94.0 ) FL [facility] MCH 32.1 (27.0-34.0 ) PG [facility] MCHC 31.7(L) (33.0-37.0 ) g/dL [facility] Platelets 200 (150-460) K/MM3 [facility] RDW-SD 48.8(H) (<47.0) FL [facility] MPV 11.6 (9.4-12.4) [place] [facility] nRBC Count 0.0 #/100 WBC'S [facility] NRBC Absolute 0.0 K/MM3 [facility] Comment: Testing performed or reported by [facility], a Service of [facility], [address] [place] [address] Alejandra Rhodes MD, [employer] [facility]# [id number] 11/18/2022 10:0 9 AM EDT 11/18/2022 10:43 AM EDT us Raymundo Paz MD LAB BLOOD ORDERABLES Final Re sult [facility] documented in this encounter Visit Diagnoses Not on filedocumented in this encounter Care Teams Used Car Sales Manager Relationship Specialty Start Date End Date Fabio De La Garza MD [address] [place] [address] PCP - General Internal Medicine 07/15/21 documented as of this encounter
--- OUTSIDE RECORDS SUMMARY | 2025-05-16 13:42 | XMS_ITS | Encounter Summary ---
Author Organization [facility] Address [address] [place] [address] [place] [address] Phone Care Team Providers Care Reading Assistant Name Role Phone Fabio De La Garza MD Primary Care Provider [phone] Encounter Details Date Type Department Care Team (Late st Contact Info) Description 03/21/2023 Procedure [facility] [address] [place] [address] Social History Tobacco Use Types Packs/Day Years [...] 10:39 PM EDT Marissa Sandoval RN * [place] Suicide Severity Rating Scale (Screener/Recent Self-Report) Question [...] on filedocumented in this encounter Care Teams Reading Assistant Relationship Specialty Start Date End Date Fabio De La Garza MD [address] [place] [address] PCP - General Internal Medicine 10/08/17 documented as of this encounter Additional Source Comments The information contained in this document represents components of the legal health record. It is not the complete legal health record.[facility]
--- OUTSIDE RECORDS SUMMARY | 2025-05-16 13:42 | XMS_ITS | Clinical Summary ---
Author Organization [facility] Address [address] [place] [address] [place] [address] Phone Care Team Providers Care Photonics Engineering Technician Name Role Phone Fabio De La Garza MD Primary Care Provider [phone] Allergies No known active allergies Medications albuterol [...] Active Additional Information Patient taking differently: 40 mg Oral Daily, Reported on 12/22/2024 hydrALAZINE 50 MG tablet Take 50 mg by mouth 3 Active loratadine (CLARITIN) 10 MG tablet Take 10 mg by mouth 1 (one) time each day Active Semaglutide (OZEMPIC, 0.25 OR 0.5 MG/DOSE, SC) Inject under the skin Active nebivolol (BYSTOLIC) 20 MG tablet TAKE 1 TABLET (20 MG TOTAL) BY MOUTH ONCE DAILY 90 tablet 3 5 Active Mounjaro 7.5 MG/0.5ML solution auto-injector inject 7.5 mg by subcutaneous route once weekly 5 Active tadalafil (CIALIS) 5 MG tablet TAKE 1 TABLET EVERY THURSDAY, THURSDAY, Fridays 5 Active doxazosin (CARDURA) 4 MG tablet TAKE 1 TABLET BY MOUTH EVERYDAY AT BEDTIME 90 tablet 5 Active ergocalciferol 1.25 MG (51778 UT) capsule TAKE 1 CAPSULE (50,000 UNITS TOTAL) BY MOUTH EVERY 14 DAYS 6 capsule 5 Active Active Problems Problem Noted Date [...] Encounters Date Type Department Care Team Description 03/12/2025 Refill [facility] [address] [place] [address] Raymundo Paz MD from Last 3 Months [...] Sign Reading Time Taken Comments Blood Pressure 146/56 12/22/2024 3:30 PM EDT Pulse 71 12/22/2024 3:30 PM EDT Temperature - - Respiratory Rate - - Oxygen Saturation 97% 12/22/2024 3:30 PM EDT Inhaled Oxygen Concentration - - Weight 119 kg (262 lb) 12/22/2024 3:30 PM EDT Height - - Body Mass Index - - Plan of Treatment Upcoming Encounters Date Type Department Care Team (Late st Contact Info) Description 12/21/2025 2:00 PM EDT Office Visit [facility] [address] [place] [address] Raymundo Paz MD [address] [facility] [address] [place] [address] Health Maintenance Due Date Last Done Comments Pneumococcal Vaccine: 50+ Years (1 of 2 - PCV) 02/15/1974 Colorectal Cancer Screening: Annual FOBT 2002 Colorectal Cancer Screening: Colonoscopy 2002 Colorectal Cancer Screening: Sigmoidoscopy 2002 Diabetes: Hemoglobin A1C 02/11/2025 021, 06/14/2020, 04/05/2020, Additional history exists Diabetes: Ophthalmology Exam 02/11/2025 Diabetes: Pedal Pulse Checked 02/11/2025 Diabetes: Sensory Foot Exam 02/11/2025 Diabetes: Visual Foot Exam 02/11/2025 Influenza Vaccine (#1) 2025 05/09/2020 Hepatitis B Vaccine Aged Out No longe r eligible based on patient's age to complete this topic Procedures Procedure Name Priority Date/Time Associated Diagnosis Comments EXT RESULT ENTRY Routine 10/16/2020 from Last 3 Months or Most Recently Relevant to Health Maintenance Results * (ABNORMAL) EXT RESULT ENTRY (10/16/2020) WBC 7.0 3.3 - 10.0 10*3/ML Red Blood Cell Count 4.00 Hemoglobin 13.1(A) 13.5 - 17.5 Hematocrit 39.3(A) 41.0 - 53.0 Platelets 221 150 - 399 10*3/UL MCV 98.3 82.0 - 108.0 Sodium 140 137 - 147 Potassium 4.6 3.4 - 5.5 Chloride 107 99 - 108 BUN 38(A) 4 - 21 mg/dL Creatinine 1.45(A) 0.60 - 1.30 mg/dL Calcium 9.4 8.7 - 10.7 mg/dL eGFR Non-Afr [place] 49 eGFR 57 Hemoglobin A1C 5.2 4.0 - 6.0 10/16/2020 us Historical Provider LAB BLOOD ORDERABLES Imelda l Result from Last 3 Months or Most Recently Relevant to Health Maintenance Insurance [facility] Medicare [employer] Medicare Care Teams Photonics Engineering Technician Relationship Specialty Start Date End Date Fabio De La Garza MD [address] [place] [address] [place] PCP - General Internal Medicine 07/15/21
== END 2025-05-16 11:43 | disposition home or self-care (01) ==
LOC: HO.HMCSH 10:57
PROVIDERS: PCP Internal Medicine; Visit Provider Internal Medicine
DX: Z23 Encounter for immunization (principal)

== ENCOUNTER → 2025-05-16 10:57 | Outpatient (BNVA) | payer MEDICARE, OTHER, SELFPAY | PROVIDERS: PCP Internal Medicine; Visit Provider Internal Medicine | DX: I10 Essential (primary) hypertension (principal); M16.10 Unilateral primary osteoarthritis, unspecified hip; Z28.89 Immunization not carried out for other reason; Z79.899 Other long term (current) drug therapy | CPT/HCPCS: 90471; 96127; 99202 ==

== ENCOUNTER 2025-05-22 14:20 | Outpatient (AMB) | payer MEDICARE, OTHER, SELFPAY ==
--- OUTSIDE RECORDS SUMMARY | 2025-05-18 09:45 | XMS_ITS | Encounter Summary ---
Author Organization [facility] Address [address] [place] [address] Care Team Providers Care Sole Inker Name Role Phone Andrzej Souza MD Primary Care Provider [phone]- [phone] Reason for Visit * Consultation (Routine) - Authorized Specialty Diagnoses / Procedures Referred By Tang barker Referred To Contact Occupational Therapy Diagnoses Bilateral carpal tunnel syndrome Antonina Melendez MD [address] [place] [phone] Phone: tel: fax: Referral ID Status Reason Start Date Expiration Date Visits Requested Visits Authorized [id number] Authorized Specialty Services Required 04/11/2025 04/11/2026 8 8 Encounter Details Date Type Department Care Team (Late st Contact Info) Description 05/18/2025 9:45 AM EDT Treatment [facility] Occupational Therapy [address] [place] [phone] Ihsan Connor, OT Acquired trigger finger of left ring finger (Primary Dx); Carpal tunnel syndrome, bilateral Social History Tobacco Use Types Packs/Day Years Used Date Smoking Tobacco: Former Cigarettes Smokeless Tobacco: Never Alcohol Use Standard Drinks/Week Comments Yes 14 (1 standard drink = 0.6 oz pu re alcohol) Sex and Gender Information Value Date Recorded Sex Assigned at Not on file Legal Sex Male 9:41 AM EST Gender Identity Not on file Sexual Orientation Not on file documented as of this encounter Progress Notes * Juan Carlos Yanes - 05/18/2025 9:45 AM EDT Images from the original note were not included. [facility] - Outpatient OCCUPATIONAL THERAPY DISCHARGE EVALUATION Date: 05/18/2025 Visit Number: [id number] Patient Name: Espinoza Burrows : 1955 Age: 70 y.o. Gender: male Diagnosis: ICD-10-CM ICD-9-CM 1. Acquired trigger finger of left ring finger M65.342 727.03 2. Carpal tunnel syndrome, bilateral G56.03 354.0 Date of Onset: 04/11/2025 Referring Provider: Antonina Melendez MD Insurance: Payor: MEDICARE / Plan: MEDICARE PART A & B / Product Type: Medicare / Language: Speaks and understands Yakut as preferred language with no international relations teacher required has a past medical history of Arthritis, Asthma, Chronic kidney disease, Chronic pain disorder, Diabetes mellitus ([facility] V24, [facility] V28), History of transfusion, HL (hearing loss), Hypertension, Joint pain, and Sleep apnea. has a past surgical history that includes ORIF radius & ulna fractures (Right, 1973); Other surgical history; Exploratory laparotomy; Bladder surgery; Lithotripsy; Kidney stone surgery; Hip Arthroplasty; and Carpal tunnel release (Left, 03/16/2025). has no known allergies. Precautions: None specified SUBJECTIVE: It's moving better Pain: 0/10 at rest in L wrist/digits OBJECTIVE General Observations/Comments: Pt [place] amb to clinic. Director Of Clinical Trials Right 102 pounds Left 70 pounds OT Shoulder ROM: BUE WNL OT Elbow/forearm ROM B UE WNL, except R supination AROM 25 due to fx 45 years ago OT Wrist ROM Right Left AROM WRIST AROM 60 Extension 65 45 Flexion 65 Lag to DPC DIGIT DISTANCE TO DISTAL PALMAR CREASE (cm) INDEX MIDDLE RING SMALL .5 0 0 .5 Strength BUE 5/5 throughout 5/5: Normal - Full ROM and tolerates maximum resistance 4/5: Good - Full ROM and tolerates moderate resistance 4-/5: Good Minus - Full ROM and tolerates less than moderate resistance Breaks with resistance 3+/5: Fair Plus - Full ROM and tolerates minimal resistance Breaks with resistance 3/5: Fair - Full ROM against gravity and tolerates no resistance 3-/5: Fair Minus - < Full ROM against gravity 2+/5: Poor Plus - <50% ROM against gravity OR full ROM gravity eliminated with minimal resistance 2/5: Poor - Full ROM gravity eliminated and tolerates no resistance 2-/5: Poor Minus - < full ROM gravity eliminated 1/5: Trace 0/5: No muscle activation Palpation: Reduced tightness in L wrist Other Assessments: QuickDASH - Disability of Arm, Shoulder, or Hand Rate your ability to do the following activities in the past week: Open a tight or new jar: 1 - No difficulty Do heavy agricultural loan officer (eg wash beckman, wash floors) : 1 - No difficulty Carry a shopping bag or briefcase : 1 - No difficulty Wash your back : 1 - No difficulty Use a knife to cut food: 2 - Mild difficulty Recreational activities in which you take some force or impact through your arm, shoulder or hand (eg golf, hammering, tennis, etc) : 1 - No difficulty During the past week, to what extent has your arm, shoulder or hand problem interfered with your normal social activities with family, friends, neighbours or groups? : 1 - Not at all During the past week, were you limited in your work or other regular daily activities as a result of your arm, shoulder or hand problem? : 2 - Slightly limited Rate the severity of the following symptoms in the last week: Arm, shoulder or hand pain : 1 - None Tingling (pins and needles) in your arm, shoulder or hand : 1 - None During the past week, how much difficulty have you had sleeping because of the pain in your arm, shoulder or hand? : 1 - No difficulty QuickDASH Score QuickDASH Score: 4.55 Classification: Mild Disability 9 Hole PEG Test 9 Hole Peg Test (seconds) Right - 9 Hole Peg Test (seconds): 25.1 seconds Left - 9 Hole Peg Test (seconds): 27.6 seconds TREATMENT INTERVENTIONS: (This Date of Service) Procedures: U/S: 3.3 MHz, 50% pulsed,0.5 W/CM2 X 8 min to L volar wrist/incision, base of thenar/hypothenar emminence Therex: ROM, MMT measures for d/c eval sh retraction, backwards circles Median nerve glide for CTS Ulnar nerve glides - butterfly, teapot, towel, hand to side of head - partial movement wrist flex/ext, pro/sup both with 1# 1x10 reps Pain Reassessment: 2/10 at rest and during L wrist/digit movement ASSESSMENT Espinoza Burrows is a 70 y.o. male who has participated in outpatient occupational therapy. Pt demosincreased ROM and strength in L digits and wrist. Pt also demos decreased pain in L wrist/digits atrest and during activity. Patient Education: Education provided: HEP, POC Education Provided To: Patient utilizing Explanation and Demonstration mode(s) of education Response to Education: Verbal Understanding GOALS Goals Addressed This Visit's Progress COMPLETED: LTG 8 visits Patient will report <=2/10 pain in L hand with heavier activity - Met Patient will demo L digit AROM WFL for IALDLs - Met Patient will demo L private pilot strength >= 40# to be able to hold a pot for cooking -Met Patient will demo improved functional use of L upper extremity as evidenced by Quick Dash score <= 15 to be able to perform IADLs - Met Patient will perform HEP MOD I - Met COMPLETED: Pt goal For the L hand to feel better/be stronger PLAN Discharge Outpatient Occupational Therapy: Pt has met all LTGs, continues to follow HEP; and demonstrates functional use of L hand Equipment Recommended: none; Equipment Provided: none BILLING (This Date of Service) OT Therapeutic Procedures Time Entry Therapeutic Exercise Time Entry: 37 OT Modalities Time Entry Ultrasound Time Entry: 8 TOTAL TREATMENT TIME: 45 Minutes Documentation completed by Juan Carlos [facility]ON [facility] [address] [place] [phone] Dept: [phone] Dept Cosigned by Ihsan Connor OT at 05/18/2025 12:10 PM EDT Associated attestation - Ihsan Connor OT - 05/18/2025 12:10 PM EDT I certify that I, Ihsan Connor OT, was present and participatory during the delivery of care anddirected all aspects of care and decision making during this session. Note generated by student andedited for content accuracy. I have reviewed the Epic therapy documentation for 05/18/2025 by occupational therapy student, Juan Carlos Yanes and concur with all documentation and attest to its accuracy, and to that of all associated charges. documented in this encounter Plan of Treatment Upcoming Encounters Date Type Department Care Team (Latest Contact Info) Description 07/18/2025 10:00 AM EST Consult Orthopedic Surgery - [address] [phone] Antonina Melendez MD [address] [place] [phone] 08/02/2025 8:30 AM EST Hospital Encounter [address] [phone] Antonina Melendez MD [address] [place] [phone] 08/02/2025 8:30 AM EST - 08/02/2025 10:15 AM EST Surgery [address] [phone] Antonina Melendez MD [address] [place] [phone] RELEASE CARPAL TUNNEL ENDOSCOPIC-RIGHT [[id number] (CPT )] 08/11/2025 9:00 AM EST Office Visit Orthopedic [address] [phone] Alicia Zamudio PA [address] [place] [phone] Scheduled Procedures Name Priority Associated Diagnoses Date/Ti me RELEASE CARPAL TUNNEL ENDOSCOPIC Right carpal tunnel syndrome 08/02/2025 8:30 AM EST documented as of this encounter Visit Diagnoses Diagnosis Right carpal tunnel syndrome- Primary Carpal tunnel syndrome Acquired trigger finger of left ring finger- Primary Carpal tunnel syndrome, bilateral Carpal tunnel syndrome Right carpal tunnel syndrome Carpal tunnel syndrome documented in this encounter Care Teams Sole Inker Relationship Specialty Start Date End Date Andrzej Souza MD [facility] [address] [place] [address] [address] [place] [address] PCP - General Internal Medicine 03/16/25 documented as of this encounter
--- NOTE | 2025-05-22 15:14 | AM.OFFWIN_ITS ---
Intake Vital Signs 05/22/25 15:15 Height 5 ft 7 in Weight 270 lb BMI 42.3 BP 132/80 Blood Pressure Location Lt brachial Position Sitting Pulse 57 Pulse Source Pulse Oximeter Temp 98 F Temp Source Oral Pulse Oximetry (%) 97 Oxygen Delivery Method Room Air Intake Visit Reasons: EP Tick bite Intake Note: Patient presents with tick bite on left elbow Patient Tobacco Use Status: Former Tobacco user Allergies No Known Allergies (No Known Allergies*) Allergy (Verified 05/22/25 15:25) Do you need a note to return to daycare/school/sports/work: No HPI HPI Comments History of Present Illness Details History - The patient is a 70-year-old male pres enting with a tick bite. - The tick was attached for approximatel y 36 hours before it was removed. - Initially, the patient mistook the Nu-Med Plus k for a scab and removed it, discovering it was still alive. - The patient reported possible exposure to poison tha, as the area was itching prior to discovering the tick. - No prior history of Lyme disease or si milar tick-related issues was discussed. - He denies rashes, lesions, joint pain, fever, or chills. Physical Exam General: Cooperative, healthy appearing, comfortable, no acute distress and well developed Orientation: Patient oriented x3 Respiratory: Normal respiratory effort and able to speak in complete sentences. Cardiac: RRR, no m/r/g noted. Skin: Small circular area of erythema noted on the left elbow. No induration noted, no discharge noted, no bleeding. Neuro: Sensation is intact. Patient was informed and verbally consented to the use of an ambient scribe for clinic note documentation during this visit. [facility] Medical History (Updated 05/22/25 @ 05:31 by Andrzej Souza MD) Elevated cholesterol Arthritis Back pain Kidney stones Gout HTN (hypertension) TONY on CPAP Surgical History Hx of arthroscopy of knee History of surgery on right wrist History of cystoscopy History of lithotripsy History of left hip replacement History of partial nephrectomy Hx of exploratory laparotomy Hx of colonoscopy (~01/23/21) Family History (Updated 05/16/25 @ 11:22 by Astrid Gutierrez CMA) Mother No problems noted. Father No problems noted. Social History Housing: House Are you a primary health care specialist to a significant other at home: No Do you presently have visiting nurse or other home services: No Patient Tobacco Use Status: Former Tobacco user service: No Current occupational status: employed Cognitive needs: No Hearing needs: No Vision needs: Yes (rx glasses) Review of Systems Const All systems reviewed & are unremarkable except as noted in HPI and below Physical Exam Vital Signs: Last Vital Signs Temp 98 F 05/22/25 15:15 Pulse 57 05/22/25 15:15 BP 132/80 05/22/25 15:15 Pulse Ox 97 05/22/25 15:15 Oxygen Delivery Method Room Air 05/22/25 15:15 BMI result Body Mass Index 42.3 Assessment & Plan Assessment & Plan (1) Tick bite: Code(s): W57.XXXA - Bitten or stung by nonvenomous insect and other nonvenomous arthropods, initial encounter Qualifiers: Encounter type: initial encounter Site of tick bite: elbow Laterality: left Qualified Code(s): S50.362A - Insect bite (nonvenomous) of left elbow, initial encounter; W57.XXXA - Bitten or stung by nonvenomous insect and other nonvenomous arthropods, initial encounter Plan Most likely tick bite pt brought in the tick he removed Plan - Initiate prophylactic antibiotic treatment with doxycycline 100 mg twice daily for seven days to prevent Lyme disease. - Advise the patient to monitor for symptoms such as bullseye rash, fever, or joint pain, which could indicate Lyme disease. - Instruct the patient to avoid sun exposure while on doxycycline. - Recommend follow-up if any symptoms or issues arise. Medications: New doxycycline hyclate 100 mg PO BID 14 tabs 0RF Coding Level of Care Code Est Pt Level 3 (82949) Diagnoses Tick bite of left elbow, initial encounter S50.362A; W57.XXXA Encounter type: initial encounter Site of tick bite: elbow Laterality: left
[2025-05-22 15:15] VITALS: BP 132/80; PULSE 57; TEMP 36.6; O2SAT 97; BMI 42.3
--- OUTSIDE RECORDS SUMMARY | 2025-05-22 17:58 | XMS_ITS | Encounter Summary ---
Author Organization [facility] Address [address] [place] [address] [place] [address] Phone Care Team Providers Care Alcoholism Worker Name Role Phone Fabio De La Garza MD Primary Care Provider +1- [phone] Encounter Details Date Type Department Care Team (Late st Contact Info) Description 03/21/2023 Procedure Pass [facility] Imaging - CT [address] [place] [address] Social History Tobacco Use Types Packs/Day Years [...] 10:39 PM EDT Marissa Sandoval RN * [place] Suicide Severity Rating Scale (Screener/Recent Self-Report) Question [...] on filedocumented in this encounter Care Teams Alcoholism Worker Relationship Specialty Start Date End Date Fabio De La Garza MD [address] [place] [phone] PCP - General Internal Medicine 10/08/17 documented as of this encounter Additional Source Comments The information contained in this document represents components of the legal health record. It is not the complete legal health record.[facility]
--- OUTSIDE RECORDS SUMMARY | 2025-05-22 17:58 | XMS_ITS | Data Portability ---
Author Organization [facility], OFF[facility] Address [address] [facility] [address] [place] [phone] Assessment Encounter Date Assessment Date Assessment LastModified [...] Singh MD [address], [place], [phone], [place] - Comp-Assistd and Rcnstrctive Surgry 08/12/2017 17:33:36 General Surgery completed Gera Singh MD [address], [place], [phone], [place] - Comp-Assistd and Rcnstrctive Surgry 08/12/2017 17:34:06 Knee Surgery completed Gera Singh MD [address], [place], [phone], [place] Comp-Assistd and Rcnstrctive Surgry 08/12/2017 17:34:25 Hip Surgery completed Gera Singh MD [address], [place], [address], [place] - Comp-Assistd and Rcnstrctive Surgry 10/26/2017 [...] Updated DateTime 08/12/2017 167.64 cm 38.7 kg/m2 282147.17 g 166/84 mm[Hg] Alicia Jones [place] - Comp-Assistd and Rcnstrctive Surgry 08/12/2017 16:31:54 Date Recorded Body height Body mass index (BMI) Body weight Systolic And Diastolic Provider Name and Address Organization Details Last Updated DateTime 08/17/2024 167.64 cm 41.2 kg/m2 878067.05 g 148/86 mm[Hg] Alicia Jones [place] - Comp-Assistd and Rcnstrctive Surgry 08/17/2024 13:24:12 Date Recorded Body height Body mass index (BMI) Body weight Systolic And Diastolic Provider Name and Address Organization Details Last Updated DateTime 10/26/2017 167.64 cm 39.2 kg/m2 970856.95 g 150/73 mm[Hg] Alicia Jones [place] - Comp-Assistd and Rcnstrctive Surgry 10/26/2017 13:11:40 Date Recorded Body height Body mass index (BMI) Body weight Provider Name and Address Organization Details Last Updated DateTime 11/23/2017 167.64 cm 39.5 kg/m2 309306.13 g Alicia Jones [place] - Comp-Assistd and Rcnstrctive Surgry 11/23/2017 12:07:21 Social History Question Answer Notes LastModified by Organizat ion Details LastModified Time Tobacco Smoking Status Former Smoker Gera Singh MD [address] [place] [address],[facility] [address], [place], [phone], [place] - Comp-Assistd and Rcnstrctive Surgry 08/12/2017 17:32:27 What Was The Date Of Your Most Recent Tobacco Screening? 04/11/2024 [email or web address] Information not available 04/11/2024 Has Tobacco Cessation Counseling Been Provided? No [email or web address] Information not available 04/11/2024 Sex: Unknown Functional Status Question Answer Note LastModified by Organization D etails LastModified Time Do you or have you ever used any other forms of tobacco or nicotine? No [email or web address] Information not available 04/11/2024 Are you able to care for yourself independently? Yes [email or web address] Information not available 04/11/2024 Mental Status None [...] Thyroid Problems N Anemia N Heart Attack (NE) N Ulcers N Diabetes N Bleeding Disorder N Seizures/Epilepsy N Tuberculosis N AIDS/HIV N Asthma N Peripheral Vascular Disease N Hepatitis N Pulmonary Embolism N Hypertension Y Osteoporosis N Past Encounters Encounter ID Performer Location Encounter Start Date Encounter Closed Date Diagnosis/Indication Diagnosis SNOMED-CT Code Diagnosis ICD10 Code Diagnosis IMO Codes Diagnosis Note [id number] Gera Singh MD OFFICE [address] [facility] [address] [phone] 08/12/2017 15:36:56 08/23/2017 15:09:43 [id number] Gera Singh MD OFFICE [address] [facility] [address] [phone] 10/26/2017 12:18:58 10/26/2017 15:39:01 [id number] Gera Singh MD OFFICE [address] [facility] [address] [phone] 11/23/2017 11:58:03 11/24/2017 17:00:49 [id number] Gera Singh MD formerly [facility] [address] [place] [address] 04/11/2024 07:51:20 05/11/2024 16:35:13 [id number] Gera Singh MD OFFICE [address] [facility] [address] [phone] 08/17/2024 12:40:59 08/24/2024 09:32:18 Health Concerns Section Related Observation LastModified by Organization Detai ls LastModified Time None Recorded Concern Status LastModified by Organization Details LastModified Time None Recorded Advance Directives Directive None Recorded Payers Insurance Date Sequence Insurance Name Policy Number Policy Montanez Covered Member ID Montanez Member ID Guarantor Name 08/24/2024 2 [facility] [place] (INDEMNITY) [id number] Espinoza Burrows [id number] Espinoza Burrows 08/03/2024 2 [facility] [place] [facility] [place] (INDEMNITY) Espinoza Burrows 08/14/2024 1 MEDICARE B-PR: [facility] [employer] Espinoza Burrows [id number] Espinoza Burrows Notes Date Note Type [...] noted in the HPI Gera Singh MD [address] [place] [address],[facility] [address], [place], [address], [place] - Comp-Assistd and Rcnstrctive Surgry 08/12/2017 [...] (active hip flexion).ROS as noted in the [facility] Gera Singh MD [address],[facility] [address], [place], [address], [place] - Comp-Assistd and Rcnstrctive Surgry 10/26/2017 [...] patient reportshelped significantly.ROS as noted in the [facility] Gera Singh MD [address],[facility] [address], [place], [address], [place] Comp-Assistd and Rcnstrctive Surgry 11/23/2017 [...] the HPI Gera Singh MD [address],[facility] [address], [place], [address], [place] Comp-Assistd and Rcnstrctive Surgry 04/11/2024 [...] the HPI Gera Singh MD [address],[facility] [address], [place], [address], [place] - Comp-Assistd and Rcnstrctive Surgry 08/17/2024 15:06:14
--- OUTSIDE RECORDS SUMMARY | 2025-05-22 17:58 | XMS_ITS | Patient Health Record ---
Author Organization [facility] Address [address] [place] [address] Care Team Providers Care Director [employer]it System Name Role Phone Dr. Indra Padron Unavailable [phone] Reason For Referral No Information Medications Medication [...] Start Date Coverage End Date [id number] Markos Jerrysteve Self - patient is the insured Medical (General) History Medical History History ICD Code kidney stones Surgical History Surgery Date(Month/Year) Lt kidney stone removal 1982
--- OUTSIDE RECORDS SUMMARY | 2025-05-22 17:58 | XMS_ITS | Clinical Summary ---
Author Organization [facility] Address [address] [facility] [address] [place] [address] Phone Care Team Providers Care Computer Mechanic Name Role Phone Fabio De La Garza MD Primary Care Provider +1- [phone] Allergies No known active allergies Medications simvastatin [...] EDT) SODIUM 138 135 - 145 mmol/L [facility] CHLORIDE 102 98 - 107 mmol/L [facility] POTASSIUM 4.2 3.5 - 5.0 mmol/L [facility] CO2 25 24 - 32 mmol/L [facility] BUN 33(H) 8 - 25 mg/dL [facility] CREATININE 1.34 0.50 - 1.40 mg/dL [facility] GLUCOSE 155(H) 70 - 110 mg/dL [facility] CALCIUM 9.0 8.5 - 10.0 mg/dL [facility] EGFR 57(L) >59 mL/min/1.7 3m2 [facility] Comment:Estimated glomerular filtration rate calculated using the CKD-EPI refit equation. ANION GAP 11 3 - 15 mmol/L [facility] Blood 03/21/2023 11:1 0 PM EDT 03/21/2023 11:17 PM EDT us Ranjan Camacho MD LAB BLOOD ORDERABLES Final Result [address] [id number] from Last 3 Months or Most Recently Relevant to Health Maintenance Insurance MEDICARE PART A & B [facility] [employer] MEDICARE SUPPLEMENT MEDICARE PART A & B [facility] MEDICARE SUPPLEMENT MEDICARE PART A & B [employer] MEDICARE SUPPLEMENT MEDICARE PART A & B [employer] MEDICARE SUPPLEMENT MEDICARE PART A & B [facility] MEDICARE SUPPLEMENT MEDICARE PART A & B [facility] MEDICARE SUPPLEMENT [facility] MEDICARE SUPPLEMENT MEDICARE PART A & B [facility] MEDICARE SUPPLEMENT MEDICARE PART A & B [facility] [employer] MEDICARE SUPPLEMENT Care Teams Computer Mechanic Relationship Specialty Start Date End Date Fabio De La Garza MD [address] [place] [phone] PCP - General Internal Medicine 10/08/17 Additional Source Comments The information contained in this document represents components of the legal health record. It is not the complete legal health record.[facility]
--- OUTSIDE RECORDS SUMMARY | 2025-05-22 17:58 | XMS_ITS | Encounter Summary ---
Author Organization [facility] Address [address] [facility] [address] [place] [address] Phone Care Team Providers Care Seo Associate Name Role Phone Fabio De La Garza MD Primary Care Provider [phone] Encounter Details Date Type Department Care Team (Late st Contact Info) Description 11/11/2022 Telephone [facility] [address] [facility] [address] [place] [address] Yun Valdovinos Social History Tobacco [...] [facility] [address] [place] [address] Raymundo Paz MD [address] [place] [address] documented as of this encounter [...] FINAL 11/19/2022 Testing performed or reported by [facility], a Service of [facility], [place] [address] Michael Henriquez MD, Programmer Analyst CLIA# [id number] 11/18/2022 10:0 9 AM EDT 11/18/2022 10:43 AM EDT Raymundo Paz MD LAB URINE ORDERABLES Final Re sult [facility] * (ABNORMAL) Vitamin D 25 Hydroxy (11/18/2022 10:09 AM EDT) Vitamin D, 25-Hydroxy 18.6(L) (20-50) NG/ML [facility] Comment: Testing performed or reported by [facility], a Service of [facility], [address] [place] [address] Alejandra Rhodes MD, Programmer Analyst CLIA# [id number] 11/18/2022 10:0 9 AM EDT 11/18/2022 10:43 AM EDT Raymundo Paz MD LAB BLOOD ORDERABLES Final Re sult Performing Organization Address City/[facility]/ZIP Co de Phone Number [facility] * (ABNORMAL) Urine Albumin [...] HOSPITAL Comment: Testing performed or reported by [facility], a Service of [facility], [address] [place] [address] Alejandra Rhodes MD, Programmer Analyst CLIA# [id number] 11/18/2022 10:0 9 AM EDT 11/18/2022 10:43 AM EDT Raymundo Paz MD LAB URINE ORDERABLES Final Re sult Performing Organization Address [facility] Co de Phone Number [facility] * (ABNORMAL) Protein, Total, Random Urine w/Creatinine (Protein/Creat Ratio) (11/18/2022 10:09 AM EDT) Pathologist [facility] Protein/Creatine Ratio 0.56(H) (0-0.2) [facility] Protein, Urine 68 MG/DL [facility] Comment: The urine microalbumin test is designed to monitor renal function. When screening for Bence Luz proteinuria, urine electrophoresis is recommended. Creatinine, Urine 121.3 MG/DL [facility] Comment: Testing performed or reported by [facility], a Service of [facility], [address] [place] [address] Alejandra Rhodes MD, Programmer Analyst [facility]# [id number] 11/18/2022 10:0 9 AM EDT 11/18/2022 10:43 AM EDT Raymundo Paz MD LAB URINE ORDERABLES Final Re sult Performing Organization Address [facility] de Phone Number [facility] * (ABNORMAL) Renal Function Panel (11/18/2022 10:09 AM EDT) Pathologist [facility] Glucose 116(H) (70-99) MG/DL [facility] BUN 25(H) (8-23) MG/DL [facility] Creatinine 1.3(H) (0.7-1.2) MG/DL [facility] Sodium 141 (133-145) MMOL/L [facility] Potassium 4.8 (3.6-5.2) MMOL/L [facility] Chloride 107 (98-107) MMOL/L [facility] Bicarbonate (CO2) 23 (22-29) MMOL/L [facility] Anion Gap 11 (4-17) [facility] Albumin 4.4 (3.4-4.8) GM/DL [facility] Calcium 9.4 (8.6-10.5) MG/DL [facility] Phosphorus, Serum 3.6 (2.5-4.5) MG/DL [facility] Est GFR Non 60 ML/MIN/1.7 3 M2 [facility] Comment: Creatinine based estimated glomerular filtration (eGFR) in adults is calculated using the National [employer] recommended 2020 CKD-EPI equation. Estimates GFR from serum creatinine, age and sex. Testing performed or reported by [facility], a Service of [address] [address] Alejandra Rhodes MD, Programmer Analyst CLIA# [id number] 11/18/2022 10:0 9 AM EDT 11/18/2022 10:43 AM EDT Raymundo Paz MD LAB BLOOD ORDERABLES Final Re sult Performing Organization Address [facility] de Phone Number [facility] * Magnesium (11/18/2022 10:09 AM EDT) Magnesium 1.9 (1.6-2.3) mg/dL [facility] Comment: Testing performed or reported by [facility], a Service of [facility], [address] [place] [address] Alejandra Rhodes MD, Programmer Analyst [place]# [id number] 11/18/2022 10:0 9 AM EDT 11/18/2022 10:43 AM EDT Raymundo Paz MD LAB BLOOD ORDERABLES Final Re sult Performing Organization Address [facility] de Phone Number [facility] * Albumin (11/18/2022 10:09 AM EDT) Albumin 4.4 (3.4-4.8) GM/DL [facility] Comment: Testing performed or reported by [facility], a Service of [address] [address] Alejandra Rhodes MD, Programmer Analyst CLIA# [id number] 11/18/2022 10:0 9 AM EDT 11/18/2022 10:43 AM EDT us Raymundo Paz MD LAB BLOOD ORDERABLES Final Re sult Performing Organization Address [facility] de Phone Number [facility] * (ABNORMAL) Urinalysis with microscopic (11/18/2022 10:09 AM EDT) Appearance LIGHT YELLOW [facility] Comment:CLEAR Specific [place] 1.017 (1.002-1. 030) [facility] pH [...] HOSPITAL Comment: Testing performed or reported by [facility], a Service of [facility], [address] [place] [address] Alejandra Rhodes MD, Programmer Analyst [place]# [id number] 11/18/2022 10:0 9 AM EDT 11/18/2022 10:43 AM EDT Result [facility] Raymundo Paz MD LAB URINE ORDERABLES Final Re sult Performing Organization Address [facility] de Phone Number [facility] * PTH, Intact (11/18/2022 10:09 AM EDT) Pathologist [facility] PTH, Intact 56 (15-65) PG/ML [facility] Comment: Testing performed or reported by [facility], a Service of [facility], [address] [place] [address] Alejandra Rhodes MD, Programmer Analyst CLIA# [id number] 11/18/2022 10:0 9 AM EDT 11/18/2022 10:43 AM EDT Raymundo Paz MD LAB BLOOD ORDERABLES Final Re sult Performing Organization Address [facility]/ZIP Co de Phone Number [facility] [...] HOSPITAL Comment: Testing performed or reported by [facility], a Service of [facility], [address] [place] [address] Alejandra Rhodes MD, Programmer Analyst [facility]# [id number] 11/18/2022 10:0 9 AM EDT 11/18/2022 10:43 AM EDT us Raymundo Paz MD LAB BLOOD ORDERABLES Final Re sult [facility] documented in this encounter Visit Diagnoses Not on filedocumented in this encounter Care Teams Seo Associate Relationship Specialty Start Date End Date Fabio De La Garza MD [address] [place] [address] PCP - General Internal Medicine 07/15/21 documented as of this encounter
--- OUTSIDE RECORDS SUMMARY | 2025-05-22 17:59 | XMS_ITS | Clinical Summary ---
Author Organization [facility] Address [address] [place] [address] Phone Care Team Providers Care Vb Developer Name Role Phone Andrzej Souza MD Primary Care Provider [phone] Allergies No known active allergies Medications nebivoloL (BYSTOLIC) 20 mg tablet Take 1 tablet (20 mg total) by mouth 1 (one) time each day. 08/02/2024 Active lisinopril (PRINIVIL,ZESTRI L) 40 mg tablet Take 1 tablet (40 [...] 1 tablet (4 mg total) by mouth at bedtime. 11/16/2024 Active hydrALAZINE (APRESOLINE) 50 mg tablet Take 1 tablet (50 mg total) by mouth 2 (two) times a day. 12/26/2022 Active sildenafiL (VIAGRA) 100 mg tablet Take 1 tablet (100 mg total) by mouth if needed. 11/08/2020 Active tadalafiL (CIALIS) 5 mg tablet Take 1 tablet (5 mg total) by mouth 1 (one) time each day. 12/19/2024 Active Mounjaro 7.5 mg/0.5 mL injection 0.5 mL (7.5 mg total) every 7 (seven) days. LAST 03/06/25 11/29/2024 Active acetaminophen (TYLENOL 8 HOUR) 650 mg 8 hr tablet Take 1 tablet (650 mg total) by mouth every 8 (eight) hours if needed for mild pain. Do not crush, chew, or split. 30 tablet 03/16/2025 Active oxyCODONE (ROXICODONE) 5 mg immediate release tabletIndication s:Carpal tunnel syndrome of left wrist Take 1 tablet (5 mg total) by mouth every 6 (six) hours if needed for severe pain for up to 6 doses. 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 12/30/2024 Other hyperlipidemia 12/30/2024 Type 2 diabetes mellitus wit h diabetic microalbuminuria, without long-term current use of insulin ([facility] V24, [facility] V28) 12/30/2024 Overview (12/30/2024): Patient [...] left 12/30/2024 Overview (12/30/2024): Done over at [facility] 2018 Mild intermittent asthma without complication Overview (12/30/2024): Noted on record from nephrology Enlarged prostate 12/30/2024 Overview (12/30/2024): Noted on records from nephrology History of adenomatous polyp of colon 05/29/2022 Chronic kidney disease due to benign hypertensio n 01/02/2021 Primary hypertension 12/21/2020 Obesity 12/21/2020 Encounters Date Type Department Care Team Description 05/18/2025 9:[address] [facility] Occupational Therapy [address] [address] Ihsan Connor, OT Acquired trigger finger of left ring finger (Primary Dx); Carpal tunnel syndrome, bilateral 05/11/2025 10:[address] [facility]ational Therapy [address] [place] [phone] Ihsan Connor, OT Carpal tunnel syndrome, bilateral (Primary Dx); Acquired trigger finger of left ring finger 05/09/2025 10:[address] [facility] Occupational Therapy [address] [place] [phone] Ihsan Connor, OT Carpal tunnel syndrome, bilateral (Primary Dx); Acquired trigger finger of left ring finger 05/03/2025 9:[address] [facility] Occupational Therapy [address] [place] [phone] Kristen Martin COTA/Ac Carpal tunnel syndrome, bilateral (Primary Dx); Acquired trigger finger of left ring finger 04/27/2025 9:[address] [facility] Occupational Therapy [address] [place] [phone] Ihsan Connor, OT Acquired trigger finger of left ring finger (Primary Dx); Carpal tunnel syndrome, bilateral 04/27/20[address] [facility]ational Therapy [address] [place] [phone] 04/11/2025 10:45 AM EDT Office Visit Orthopedic Surgery - [place] [facility] [address] [place] [phone] Antonina Meelndez MD Bilateral carpal tunnel syndrome (Primary Dx); Right carpal tunnel syndrome 03/16/2025 7:46 AM EDT Anesthesia Event [facility] Main OR [address] [place] [address] Tristian Moore MD Spencer, Mark A, MD 03/16/2025 7:30 AM EDT - 03/16/2025 8:45 AM EDT Surgery [facility] OR [address] [place] [address] Antonina Melendez MD ENDOSCOPIC RELEASE LEFT CARPAL TUNNEL [82505 (CPT )] 03/16/2025 6:09 AM EDT - 03/16/2025 9:37 AM EDT Hospital Encounter [facility] OR [address] [place] [phone] Antonina Melendez MD Carpal tunnel syndrome of left wrist (Primary Dx) Discharge Disposition: Home or Self Care 02/27/2025 [facility] [address] [phone] Antonina Melendez MD from Last 3 Months Surgical History Surgery Date Site/Laterality Comments ORIF RADIUS & ULNA FRACTURES 07/27/1973 - 07/26/1974 Right radius OTHER SURGICAL HISTORY EXPLORATORY LAPAROTOMY BLADDER REPAIR BLADDER SURGERY LITHOTRIPSY KIDNEY STONE SURGERY HIP ARTHROPLASTY CARPAL TUNNEL RELEASE 03/16/2025 Left Left endoscopic carpal tunnel release Medical History Medical History Date Comments Hypertension Asthma OCCASIONAL Sleep apnea Diabetes mellitus ([facility] V24, [facility] V28) Chronic kidney disease History of transfusion Chronic pain disorder Arthritis CARPAL MARTINA Joint pain HL (hearing loss) Social History Tobacco Use Types Packs/Day Years [...] Sign Reading Time Taken Comments Blood Pressure 138/61 03/16/2025 9:10 AM EDT Pulse 61 03/16/2025 9:10 AM EDT Temperature 36.7 C (98.1 F) 03/16/2025 8:42 AM EDT Respiratory Rate 20 03/16/2025 8:42 AM EDT Oxygen Saturation 98% 03/16/2025 9:10 AM EDT Inhaled Oxygen Concentration - - Weight 116 kg (255 lb) 04/11/2025 11:05 AM EDT Height 167.6 cm (5' 6 ) 04/11/2025 11:05 AM EDT Body Mass Index 41.16 04/11/2025 11:05 AM EDT Plan of Treatment Upcoming Encounters Date Type Department Care Team (Latest Contact Info) Description 07/18/2025 10:00 AM EST Consult Orthopedic Surgery [facility] [address] [phone] Antonina Melendez MD [address] [place] [phone] 08/02/2025 8:30 AM EST Hospital Encounter [facility] [address] [place] [phone] Antonina Melendez MD [address] [place] [phone] 08/02/2025 8:30 AM EST - 08/02/2025 10:15 AM EST Surgery [address] [phone] Antonina Melendez MD [address] [place] [phone] RELEASE CARPAL TUNNEL ENDOSCOPIC-RIGHT [90028 (CPT )] 08/11/2025 9:00 AM EST Office Visit Orthopedic Surgery [address] [phone] Alicia Zamudio PA [address] [place] [phone] Scheduled Procedures Name Priority Associated Diagnoses Date/Ti me RELEASE CARPAL TUNNEL ENDOSCOPIC Right carpal tunnel syndrome 08/02/2025 8:30 AM EST Health Maintenance Due Date Last Done Comments Colorectal Cancer Screening: Colonoscopy 1955 Diabetes: Annual GFR (Glomerular Filtration Rate) 1953 Diabetes: Annual Foot Exam 1963 Diabetes: Annual Retina Eye Exam 1963 Depression Screening 07/27/2024 Zoster Vaccines (2 of 2) 08/03/2024 06/08/2024 Abdominal Aortic Aneurysm (AAA) Screen 12/07/2024 Cholesterol Screening (Lipid Panel) 12/07/2024 Hepatitis C Screening 12/07/2024 Medicare Annual Wellness Visit 12/07/2024 Social Influencers of Health Screening 12/07/2024 Hypertension/CHF/CAD Annual BMP Blood Test 12/30/2024 Diabetes: Annual Urine Albumin-Creatinine Ratio (uACR) 12/31/2024 Diabetes: Blood Sugar Control Test (HGBA1C) 12/31/2024 Falls Risk Assessment 03/16/2026 03/16/2025 DTaP,Tdap,and Td Vaccines (2 - Td or Tdap) 02/22/2030 02/23/2020 Pneumococcal Vaccine: 50+ Years Completed 04/14/2023 RSV Immunization Adult Patients Completed 05/07/2023 COVID-19 Vaccine Completed 04/13/2025, 06/2024, 11/25/2023, Additional history exists Influenza Vaccine Completed 04/13/2025, , 04/14/2023, Additional history exists HIB Vaccines Aged Out [...] Procedure Name Priority Date/Time Associated Diagnosis Comments GA ENDOSCOPY WRIST SURGICAL WITH RELEASE TRANSVERSE CARPAL LIGAMENT 03/16/2025 7:46 AM EDT Carpal tunnel syndrome POCT GLUCOSE BLOOD Routine 03/16/2025 6: 29 AM EDT from Last 3 Months Results * (ABNORMAL) POCT Glucose, blood (03/16/2025 6:29 AM EDT) Glucose POCT 111(H) 70 - 100 mg/dL 03/16/2025 6:30 AM EDT [facility] Blood Capillary blood specimen / Unknown 03/16/2025 6:29 AM EDT 03/16/2025 6:31 AM EDT us Antonina Melendez MD LAB POINT OF CARE TE ST DOCKED DEVICE UNSOLICITED RESULTS Final Result [facility] [address] [place] [address], [place] [phone] from Last 3 Months Insurance MEDICARE [facility] Advance Directives * Full Code - Default (Latest Code Status on File) Date Activated Date Inactivated Comments 03/16/2025 6:17 AM 03/16/2025 11:46 AM This is ord er is used when code status has not been discussed with the patient, or code status is otherwise unknown/unconfirmed To update the patient's code status, place a code status order. Do not modify or discontinue any currently active code status orders. Care Teams Vb Developer Relationship Specialty Start Date End Date Andrzej Souza MD [facility] [address] [place] [address] [address] [facility] [address] PCP - General Internal Medicine 03/16/25
--- OUTSIDE RECORDS SUMMARY | 2025-05-22 17:59 | XMS_ITS | Clinical Summary ---
Author Organization [facility] Address [address] [place] [address] [place] [phone] Phone Care Team Providers Care Priming Powder Premix Blender Name Role Phone Fabio De La Garza MD Primary Care Provider [phone] Allergies No known active allergies Medications albuterol [...] 90 tablet 5 Active ergocalciferol 1.25 MG (69524 UT) capsule TAKE 1 CAPSULE (50,000 UNITS [...] Refill [facility] [address] [place] [phone] Raymundo Paz MD from Last 3 Months [...] [facility] [address] [place] [phone] Raymundo Paz MD [address] [facility] [address] [place] [address] Health Maintenance Due Date Last [...] 9.4 8.7 - 10.7 mg/dL eGFR Non-Afr Indonesian 49 eGFR 57 Hemoglobin A1C 5.2 4.0 - 6.0 10/16/2020 us Historical Provider LAB BLOOD ORDERABLES Imelda l Result from Last 3 Months or Most Recently Relevant to Health Maintenance Insurance [facility] Medicare Unicare Medicare Care Teams Priming Powder Premix Blender Relationship Specialty Start Date End Date Fabio De La Garza MD [address] [place] [address] HAL [place] PCP - General Internal Medicine 07/15/21
--- OUTSIDE RECORDS SUMMARY | 2025-05-22 17:59 | XMS_ITS | Encounter Summary ---
Author Organization [facility] Address [address] [place] [address] [place] [address] Phone Care Team Providers Care Seasonal Customer Service Associate Name Role Phone Fabio De La Garza MD Primary Care Provider [phone] Reason for Referral * Physical Therapy (Routine) - Closed Specialty Diagnoses / Procedures Referred By Tang barker Referred To Contact Physical Therapy Diagnoses Encounter for rehabilitation Gera Singh MD Phone: tel: fax: [facility] [address] [place] [address] Phone: tel: Referral ID Status Reason Start Date Expiration Date Visits Re quested Visits Authorized [id number] Closed 11/24/2017 11/24/2018 1 1 Encounter Details Date Type Department Care Team (Latest Contact Info) Description 11/24/2017 Transcribe Orders [facility] [address] [place] [address] Gera Singh MD [address] [place] [phone] Encounter for rehabilitation (Primary Dx) Social [...] Diagnoses Orde r Schedule Ambulatory referral to [facility] Physical Therapy Outpatient Referral Routine Encounter for rehabilitation Ordered: 11/24/2017 documented as of this encounter Visit Diagnoses Diagnosis Encounter for rehabilitation- Primary documented in this encounter Additional Health Concerns Infection Onset Date Last Indicated Resolved Time CoV-Risk 05/22/2022 05/22/2022 06/02/2022 1:23 AM EST RSV 05/22/2022 05/22/2022 05/29/2022 1:23 AM EDT documented as of this encounter Care Teams Seasonal Customer Service Associate Relationship Specialty Start Date End Date Fabio De La Garza MD [address] [place] [address] PCP - General Internal Medicine 10/08/17 documented as of this encounter Additional Source Comments The information contained in this document represents components of the legal health record. It is not the complete legal health record.[facility]
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
--- OUTSIDE RECORDS SUMMARY | 2025-05-22 17:59 | XMS_ITS | Encounter Summary ---
Author Organization [facility] Address [address] [place] [address] [place] [address] Phone Care Team Providers Care Magnetic Resonance Technologist Name Role Phone Fabio De La Garza MD Primary Care Provider [phone]- [phone] Encounter Details Date Type Department Care Team (Late st Contact Info) Description 03/21/2023 Procedure Pass [facility] Imaging - CT [address] [place] [address] Social History Tobacco Use Types Packs/Day Years [...] 10:39 PM EDT Marissa Sandoval RN * [place] Suicide Severity Rating Scale (Screener/Recent Self-Report) Question [...] on filedocumented in this encounter Care Teams Magnetic Resonance Technologist Relationship Specialty Start Date End Date Fabio De La Garza MD [address] [place] [id number] PCP - General Internal Medicine 10/08/17 documented as of this encounter Additional Source Comments The information contained in this document represents components of the legal health record. It is not the complete legal health record.[facility]
--- OUTSIDE RECORDS SUMMARY | 2025-05-22 17:59 | XMS_ITS | Encounter Summary ---
Author Organization [facility] Address [address] [place] [address] Phone Care Team Providers Care Mantel Craftsman Name Role Phone Fabio De La Garza MD Primary Care Provider +1- [phone] Reason for Referral * Physical Therapy (Routine) - Closed Specialty Diagnoses / Procedures Referred By Tang barker Referred To Contact Physical Therapy Diagnoses Encounter for rehabilitation Gera Singh MD Phone: tel: fax: [facility] [address] [place] [address] Phone: tel: fax: Referral ID Status Reason Start Date Expiration Date Visits Re quested Visits Authorized [id number] Closed 11/03/2017 02/05/2018 25 25 Encounter Details Date Type Department Care Team (Latest Contact Info) Description 10/27/2017 Transcribe Orders [facility] [address] [place] [address] Gera Singh MD [address] [place] [id number] Encounter for rehabilitation (Primary Dx) Social [...] Date/Time Associated Diagnosis Comments AMB REFERRAL TO [facility] PHYSICAL THERAPY Routine 11/03/2017 5:55 PM EDT Encounter for rehabilitation documented in this encounter Results * Ambulatory referral to [facility] Physical Therapy (11/03/2017 5:55 PM EDT) Gera Singh MD AMB [facility] REFERRALS Final Result documented in this encounter Visit Diagnoses Diagnosis Encounter for rehabilitation- Primary documented in this encounter Additional Health Concerns Infection Onset Date Last Indicated Resolved Time CoV-Risk 05/22/2022 05/22/2022 06/02/2022 1:23 AM EST RSV 05/22/2022 05/22/2022 05/29/2022 1:23 AM EDT documented as of this encounter Care Teams Mantel Craftsman Relationship Specialty Start Date End Date Fabio De La Garza MD [address] [place] [id number] PCP - General Internal Medicine 10/08/17 documented as of this encounter Additional Source Comments The information contained in this document represents components of the legal health record. It is not the complete legal health record.[facility]
== END 2025-05-22 16:14 | disposition home or self-care (01) ==
PROVIDERS: PCP Internal Medicine; Visit Provider Physician Assistant Medical
DX: S50.362A Insect bite (nonvenomous) of left elbow, initial encounter (principal); W57.XXXA Bitten or stung by nonvenomous insect and other nonvenomous arthropods, initial encounter

== ENCOUNTER → 2025-05-22 14:20 | Outpatient (BNVA) | payer MEDICARE, OTHER, SELFPAY | PROVIDERS: PCP Internal Medicine; Visit Provider Physician Assistant Medical | DX: S50.362 Insect bite (nonvenomous) of left elbow (principal); W57.XXXD Bitten or stung by nonvenomous insect and other nonvenomous arthropods, subsequent encounter | CPT/HCPCS: 99212 ==

== ENCOUNTER 2025-05-25 16:30 | Emergency (ER) | payer MEDICARE, OTHER, SELFPAY ==
--- NOTE | ~2025-05-25 | CT_ITS ---
CLINICAL HISTORY: neck swelling CT soft tissue neck with contrast Comparison: None provided Findings: The visualized intracranial contents are unremarkable. Retropharyngeal and parapharyngeal edema without rim enhancement. Airway is patent. Epiglottis is normal. Submandibular subcutaneous fat stranding. Salivary glands are within normal limits. No sialoliths. No suspicious thyroid nodules. Bilateral carotid atherosclerosis. Visualized lung apices are clear. No acute fracture or dislocation. IMPRESSION: 1. Retropharyngeal and parapharyngeal edema without rim enhancement. 2. Submandibular subcutaneous fat stranding. This document has been electronically signed by: Rena Moseley MD on 05/25/2025 22:57:46
[2025-05-25 16:34] VITALS: BP 150/90; BP 181/59; PULSE 72; PULSE 79; RESP 20; O2SAT 100; O2SAT 98; BMI 42.8
--- NOTE | 2025-05-25 16:42 | ED.GENADULT ---
HPI - General Adult General Chief complaint: Dyspnea Stated complaint: tick bite med allergy rxn, 2 epis given c pap Time Seen by Provider: 05/25/25 16:42 Source: patient Mode of arrival: ambulatory Limitations: no limitations History of Present Illness ED Provider: Dr. Schmidt HPI narrative: 70-year-old male history of hypertension presented to the ER today for evaluation of an allergic reaction. Patient stated that he noticed some tongue swelling yesterday. He said the bottom of his tongue was swollen. He noticed that his neck were swollen more than usual. He was recently started on doxycycline 5 days ago. Patient stated that he has been taking for 5 days now without any issues until recently. He is unsure whether this is the cause of his allergic reaction. However today when he was family he had trouble breathing. He placed his home CPAP on himself. And called 911. Patient stated the CPAP did help with his breathing. EMS got there gave him a dose of epinephrine. They noticed that patient was increasingly red. No signs of urticaria no sign of wheezing. When the ALS crew got there they gave additional dose of epinephrine. Did give IV Solu-Medrol, IV Benadryl for the patient. Patient stated that he is feeling much better at this time. He noticed the swelling in his mouth has decreased. He is also on lisinopril. Related Data Home Medications ?Medication ?Instructions ?Recorded ?Confirmed acetaminophen 325 mg tablet 650 mg PO Q6H PRN Pain 01/16/21 01/23/25 (Tylenol) albuterol sulfate 90 mcg/actuation 2 puff inhalation Q6H PRN Wheezing 01/16/21 01/23/25 aerosol inhaler simvastatin 20 mg tablet 20 mg PO BEDTIME 01/16/21 01/23/25 doxazosin 4 mg tablet 4 mg PO BEDTIME 05/16/25 ergocalciferol (vitamin D2) 1,250 1,250 mcg PO Q2W 05/16/25 mcg (50,000 unit) capsule hydralazine 50 mg tablet 50 mg PO BID 05/16/25 lisinopril 20 mg tablet 40 mg PO DAILY 05/16/25 nebivolol 10 mg tablet (Bystolic) 20 mg PO DAILY 05/16/25 Previous Rx's ?Medication ?Instructions ?Recorded tadalafil 20 mg tablet (Cialis) 20 mg PO DAILY PRN sexual activity 01/23/25 #30 tabs tadalafil 5 mg tablet 5 mg PO DAILY #30 tabs 01/23/25 allopurinol 200 mg tablet 200 mg PO DAILY #90 tabs 04/12/25 tirzepatide 10 mg/0.5 mL 10 mg (0.5 mL) subcut QWEEK 3 05/16/25 subcutaneous pen injector months #6.5 mL doxycycline hyclate 100 mg tablet 100 mg PO BID #14 tabs 05/22/25 Allergies Allergy/AdvReac Type Severity Reaction Status Date / Time No Known Allergies (No Known Allergy Verified 05/25/25 16:40 Allergies*) Review of Systems Review of Systems: Pertinent review of systems as mentioned in HPI. All other system otherwise negative. REPLACED BY [facility] Past Medical History REPLACED BY [facility] Narrative: Medical history as mentioned in HPI Medical History (Updated 05/25/25 @ 22:52 by Lilia Schmidt DO) Elevated cholesterol Arthritis Back pain Kidney stones Gout HTN (hypertension) TONY on CPAP Surgical History Hx of arthroscopy of knee History of surgery on right wrist History of cystoscopy History of lithotripsy History of left hip replacement History of partial nephrectomy Hx of exploratory laparotomy Hx of colonoscopy (~01/23/21) Family History Family History (Updated 05/16/25 @ 11:22 by Astrid Gutierrez CMA) Mother No problems noted. Father No problems noted. Social History Social History Housing: House Are you a primary companion caregiver to a significant other at home: No Do you presently have visiting nurse or other home services: No Patient Tobacco Use Status: Former Tobacco user Smoked in Last 30 Days: No Use of substances other than those prescribed or required for medical reasons: No Advance Directives: No Advance Directives Information Provided: Yes Do you have a plan to hurt others: No Plan service: No Current occupational status: employed Cognitive needs: No Hearing needs: No Vision needs: Yes (rx glasses) Physical Exam ED Exam Exam: General: Pleasant, no distress, interacting appropriately Head: Normacephalic, atraumatic ENT: oral mucosa moist, slight swelling of the uvula appreciated on exam. However patent airway no stridor Cardiovascular: regular rate, regular rhythm, no murmurs, rubbing, gallops Respiratory: CTAB, no wheeze, rales, rhonchi Gastrointestinal: Soft, non distended, non tender, non guarding Extremities: No limb pain or swelling, no calf tenderness Neurological: Awake and alert, no facial droop noted Skin: Warm and dry Psychiatric: Appropriate mood and thoughts Vital Signs: Vital Signs - 24 hr 05/25/25 16:34 05/25/25 18:00 05/25/25 21:23 Pulse Rate 79 71 Respiratory Rate 20 19 Blood Pressure 181/59 H 156/59 H 171/70 H Pulse Oximetry 98 98 Oxygen Delivery Method Oxymask Oxymask Oxygen Flow Rate 2 05/25/25 21:24 05/25/25 21:27 05/25/25 22:49 Pulse Rate 73 80 Respiratory Rate 18 20 Blood Pressure 171/70 H 171/70 H 179/69 H Pulse Oximetry 94 95 Oxygen Delivery Method Room Air Room Air Oxygen Flow Rate BMI result Body Mass Index 42.8 Medications Administered Discontinued Medications Generic Name Dose Route Start Last Admin Trade Name Freq PRN Reason Stop Dose Admin Doxazosin Mesylate 4 mg 05/25/25 20:47 05/25/25 21:23 Doxazosin Mesylate 2 Mg Tablet PO 05/25/25 20:48 4 mg ONCE ONE Administration Protocol Hydralazine HCl 50 mg 05/25/25 20:47 05/25/25 21:24 Hydralazine Hcl 50 Mg Tablet PO 05/25/25 20:48 50 mg ONCE ONE Administration Protocol Magnesium Sulfate 2 gm in 50 mls @ 25 mls/hr 05/25/25 16:42 05/25/25 20:13 Magnesium Sulfate/H2o IV 05/25/25 18:41 Infused ONCE ONE Infusion Sodium Chloride 1,000 mls @ 999 mls/hr 05/25/25 16:45 05/25/25 20:13 Ns IV 05/25/25 17:45 Infused .Q1H1M KIRK Infusion Tranexamic Acid 1,000 mg/ 60 mls @ 360 mls/hr 05/25/25 21:28 05/25/25 23:40 Sodium Chloride IV 05/25/25 21:37 Infused ONCE ONE Infusion Iohexol 60 ml 05/25/25 21:52 05/25/25 21:53 Iohexol 350 Mg/Ml 100 Ml Infus..Btl IV 05/25/25 21:53 60 ml ONCE ONE Administration Medical Decision Making Medical Decision Making [facility] Narrative: This is a 70-year-old male history of hypertension presented hospital today for evaluation of allergic reaction. Suspect patient likely had angioedema based on his description of the bottom of his tongue swelling along with signs of swelling in the uvula. Patient has received IV Solu-Medrol 125 mg from EMS, 50 mg IV Benadryl from EMS, and 2 doses of IM epinephrine. We will plan to order some IV magnesium IV fluid for the patient does time continue to observe the patient and closely monitor the patient. He does not have any signs of stridor no signs of impending airway collapse. Blood pressure does not show any signs of hypotension. Patient has remained stable during this period of observation. No further swelling in his throat. Patient stated that he feels much improved. No massive sign of stridor. I did discuss the case with the hospitalist. They were concerned that we do not have advance surgical airway cover or ENT on-call in case the patient's angioedema worsened. I do think this is a valid reason for transfer. I did obtain a CT imaging. No signs of abscess however he does have some signs of remaining angioedema. I think patient may benefit from going to a center with ENT coverage. 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 He would prefer to be transferred to [facility]. I placed a call to [facility]. Accepting doctor is Dr. Gamino. For ED to ED transfer. Differential Diagnosis Differential Diagnoses: The differential diagnosis associated with the presentation includes Anaphylaxis, allergic reaction, angioedema Consult Healthcare Provider Management of the patient was discussed with: Hospitalist Lab Data [facility] Lab Attestation statement: I reviewed the patient's lab results. 05/25/25 17:02 05/25/25 17:02 Labs: Lab Results 05/25/25 Range/Units 17:02 WBC 14.0 H (4.8-10.8) X10*3/uL RBC 3.77 L (4.60-5.80) X10*6/uL Hgb 11.9 L (14.0-18.0) g/dl Hct 36.9 L (42.0-52.0) % MCV 97.9 (80.0-98.0) fL MCH 31.6 (27.0-33.0) pg MCHC 32.2 (31.0-36.0) g/dl RDW 13.4 (11.0-16.0) % Plt Count 252 (160-400) X10*3/uL MPV 10.4 (9.4-12.4) fL Immature Gran % (Auto) 1.4 H (0.0-0.4) % Neut % (Auto) 66.3 (45-73) % Lymph % (Auto) 25.7 (20-40) % [place] % (Auto) 4.4 (2-11) % Eos % (Auto) 1.8 (0-4) % Baso % (Auto) 0.4 (0-2) % Lymph # (Auto) 3.6 (1.2-4.9) X10*3/uL [place] # (Auto) 0.6 (0.1-1.2) X10*3/uL Eos # (Auto) 0.3 (0.0-0.4) X10*3/uL Baso # (Auto) 0.1 (0.0-0.2) X10*3/uL Abs Immat Gran (auto) 0.20 H (0.00-0.03) X10*3/uL Absolute Neuts (auto) 9.3 H (2.0-8.3) x10*3/uL Absolute Nucleated RBC 0.000 (0.0-0.012) X10*3/uL Nucleated RBC % (auto) 0.0 (0.0-0.2) /100WBC Sodium 142 (135-145) mmol/L Potassium 4.1 (3.3-5.1) mmol/L Chloride 111 H (96-108) mmol/L Carbon Dioxide 21 L (22-29) mmol/L Anion Gap 14 (12-20) BUN 29 H (9-16) mg/dL Creatinine 1.23 (0.5-1.4) mg/dL Estim Creat Clear Calc 66.3 Estimated GFR 58 Random Glucose 158 H (60-115) mg/dL Calcium 8.9 (8.4-10.2) mg/dL Magnesium 1.9 (1.6-2.6) mg/dL Total Bilirubin 0.3 (0.0-1.0) mg/dL AST 28 (5-37) U/L ALT 22 (0-40) U/L Alkaline Phosphatase 67 (39-117) U/L Total Protein 6.7 (6.5-8.0) g/dL Albumin 4.2 (3.5-5.0) g/dL Independent Interpretation I performed an independent interpretation of an: CT Scan Radiology Impression Discussion of test interpretation with radiology: I have reviewed the radiologist's reading. Chronic Conditions Patient?s care impacted by: Hypertension Critical Care Time Critical Care Time Critical Care Time: Yes Total Critical Care Time: 50 Attestation: Time is exclusive of separately billable procedures. Time includes: direct patient care, patient reassessment, coordination of patient care, interpretation of data (laboratory data, pulse oximetry, arterial blood gases and chest xrays), review of patient's medical records, medical consultation and documentation of patient care. Procedures excluded from critical care time: central intravenous line placement and electrocardiography. Discharge Plan Discharge Clinical Impression: Angio-edema Patient Disposition: [facility] Transfer Details: [facility] ED. DR. GAMINO Prescriptions: No Action tadalafil [Cialis] 20 mg tablet 20 mg PO DAILY PRN (Reason: sexual activity) Qty: 30 2RF Rx Instructions: use 1 tab every 3-4 days no more than twice a week as needed for sexual activity. USE [employer] NOT INSURANCE [id number] [facility] [id number] Member [id number] allopurinol 200 mg tablet 200 mg PO DAILY Qty: 90 1RF acetaminophen [Tylenol] 325 mg Tablet 650 mg PO Q6H PRN (Reason: Pain) simvastatin 20 mg Tablet 20 mg PO BEDTIME albuterol sulfate 90 mcg/actuation Hfa Aerosol Inhaler 2 puff INHALATION Q6H PRN (Reason: Wheezing) lisinopril 20 mg tablet 40 mg PO DAILY Bystolic 10 mg tablet 20 mg PO DAILY tadalafil 5 mg tablet 5 mg PO DAILY Qty: 30 7RF doxycycline hyclate 100 mg tablet 100 mg PO BID Qty: 14 0RF doxazosin 4 mg tablet 4 mg PO BEDTIME hydralazine 50 mg tablet 50 mg PO BID ergocalciferol (vitamin D2) 1,250 mcg (50,000 unit) capsule 1,250 mcg PO Q2W tirzepatide 10 mg/0.5 mL pen injector 10 mg subcut QWEEK 90 Days Qty: 6.5 3RF Rx Instructions: for 4 weeks Print Language: Israeli
--- NOTE | 2025-05-25 16:55 | PC.NURSE ---
Delay in administration of Magnesium due to no pump availability. NICOLE aware, Dr. Schmidt aware, awaiting available pump.
[2025-05-25 17:08] LABS: MANUAL DIFF FLAG NO
[2025-05-25 17:09] LABS: Hematocrit 36.9 % (42.0-52.0); Hemoglobin 11.9 g/dl (14.0-18.0); Imm Gran Abs Auto 0.20 X10*3/uL (0.00-0.03); Imm Gran Pct Auto 1.4 % (0.0-0.4); Lymphocytes Absolute Auto 3.6 X10*3/uL (1.2-4.9); Mean Corpuscular HGB Conc 32.2 g/dl (31.0-36.0); Mean Corpuscular Hemoglobin 31.6 pg (27.0-33.0); Mean Corpuscular Volume 97.9 fL (80.0-98.0); NRBC Abs Auto 0.000 X10*3/uL (0.0-0.012); NRBC Pct Auto 0.0 /100WBC (0.0-0.2); Platelet Count 252 X10*3/uL (160-400); Red Blood Count 3.77 X10*6/uL (4.60-5.80); White Blood Count 14.0 X10*3/uL (4.8-10.8)
[2025-05-25 17:23] LABS: Alanine Aminotransferase 22 U/L (0-40); Albumin Level 4.2 g/dL (3.5-5.0); Alkaline Phosphatase 67 U/L (39-117); Anion Gap 14 (12-20); Aspartate Amino Transferase 28 U/L (5-37); Blood Urea Nitrogen 29 mg/dL (9-16); Calcium 8.9 mg/dL (8.4-10.2); Carbon Dioxide 21 mmol/L (22-29); Chloride 111 mmol/L (96-108); Creatinine Clr Calc Pharmacy 66.3; Estimated Glomerular Filt Rate 58; Magnesium 1.9 mg/dL (1.6-2.6); Potassium 4.1 mmol/L (3.3-5.1); Sodium 142 mmol/L (135-145); Total Protein 6.7 g/dL (6.5-8.0)
[2025-05-25 18:00] VITALS: BP 156/59; PULSE 71; RESP 19; O2SAT 98
[2025-05-25] MEDS: Magnesium Sulfate/H2O 2 GM/50 ML PIGGYBACK IV (18:00)
--- OUTSIDE RECORDS SUMMARY | 2025-05-25 18:37 | XMS_ITS | Encounter Summary ---
Author Organization [facility] Address [address] [place] [address] [place] [address] Phone Care Team Providers Care Hospital Security Officer Name Role Phone Fabio De La Garza MD Primary Care Provider [phone]- [phone] Encounter Details Date Type Department Care Team (Late st Contact Info) Description 03/21/2023 Procedure Pass [facility] Imaging - CT [address] [place] [address] Social History Tobacco Use Types Packs/Day Years [...] 10:39 PM EDT Marissa Sandoval RN * [place] Suicide Severity Rating Scale (Screener/Recent Self-Report) Question [...] on filedocumented in this encounter Care Teams Hospital Security Officer Relationship Specialty Start Date End Date Fabio De La Garza MD [address] [place] [id number] PCP - General Internal Medicine 10/08/17 documented as of this encounter Additional Source Comments The information contained in this document represents components of the legal health record. It is not the complete legal health record.[facility]
--- OUTSIDE RECORDS SUMMARY | 2025-05-25 18:37 | XMS_ITS | Encounter Summary ---
Author Organization [facility] Address [address] [facility] [address] [place] [address] Phone Care Team Providers Care Communications Controller Name Role Phone Fabio De La Garza MD Primary Care Provider [phone] Encounter Details Date Type Department Care Team (Late st Contact Info) Description 11/11/2022 Telephone [facility] [address] [facility] [address] [place] [address] Yun Valdovinos Social History Tobacco [...] Visit [facility] [address] [place] [address] Raymundo Paz MD [address] [place] [address] documented as of this encounter [...] Comment See Comment See Comment See Comment [facility] Comment: CLEAN CATCH (URINE) NONE NO GROWTH FINAL 11/19/2022 Testing performed or reported by [facility], a Service of [facility], [place] [address] Michael Henriquez MD, Publications Sales Representative CLIA# [id number] 11/18/2022 10:0 9 AM EDT 11/18/2022 10:43 AM EDT Raymundo Paz MD LAB URINE ORDERABLES Final Re sult [facility] * (ABNORMAL) Vitamin D 25 Hydroxy (11/18/2022 10:09 AM EDT) Vitamin D, 25-Hydroxy 18.6(L) (20-50) NG/ML [facility] Comment: Testing performed or reported by [facility], a Service of [facility], [address] [place] [address] Alejandra Rhodes MD, Publications Sales Representative CLIA# [id number] 11/18/2022 10:0 9 AM EDT 11/18/2022 10:43 AM EDT Raymundo Paz MD LAB BLOOD ORDERABLES Final Re sult Performing Organization Address City/[facility]/ZIP Co de Phone Number [facility] * (ABNORMAL) Urine Albumin / Creatinine Ratio (11/18/2022 10:09 AM EDT) Urine Microalbumin 518.6(H) (<20) MG/L [facility] Comment: The urine microalbumin test is designed to monitor renal function. When screening for Bence Luz proteinuria, urine electrophoresis is recommended. Microalbumin/Creati nine Ratio 427.5(H) (0-20) MG/GM [facility] Microalb/Creat Ratio 121.3 MG/DL [facility] Comment: Testing performed or reported by [facility], a Service of [facility], [address] [place] [address] Alejandra Rhodes MD, Publications Sales Representative CLIA# [id number] 11/18/2022 10:0 9 AM EDT 11/18/2022 10:43 AM EDT Raymundo Paz MD LAB URINE ORDERABLES Final Re sult Performing Organization Address [facility] Co de Phone Number [facility] * (ABNORMAL) Protein, Total, Random Urine w/Creatinine (Protein/Creat Ratio) (11/18/2022 10:09 AM EDT) Pathologist [facility] Protein/Creatine Ratio 0.56(H) (0-0.2) [facility] Protein, Urine 68 MG/DL [facility] Comment: The urine microalbumin test is designed to monitor renal function. When screening for Bence Luz proteinuria, urine electrophoresis is recommended. Creatinine, Urine 121.3 MG/DL [facility] Comment: Testing performed or reported by [facility], a Service of [facility], [address] [place] [address] Alejandra Rhodes MD, Publications Sales Representative [facility]# [id number] 11/18/2022 10:0 9 AM EDT 11/18/2022 10:43 AM EDT Raymundo Paz MD LAB URINE ORDERABLES Final Re sult Performing Organization Address [facility] de Phone Number [facility] * (ABNORMAL) Renal Function Panel (11/18/2022 10:09 AM EDT) Pathologist [facility] Glucose 116(H) (70-99) MG/DL [facility] BUN 25(H) (8-23) MG/DL [facility] Creatinine 1.3(H) (0.7-1.2) MG/DL [facility] Sodium 141 (133-145) MMOL/L [facility] Potassium 4.8 (3.6-5.2) MMOL/L [facility] Chloride 107 (98-107) MMOL/L [facility] Bicarbonate (CO2) 23 (22-29) MMOL/L [facility] Anion Gap 11 (4-17) [facility] Albumin 4.4 (3.4-4.8) GM/DL [facility] Calcium 9.4 (8.6-10.5) MG/DL [facility] Phosphorus, Serum 3.6 (2.5-4.5) MG/DL [facility] Est GFR Non 60 ML/MIN/1.7 3 M2 [facility] Comment: Creatinine based estimated glomerular filtration (eGFR) in adults is calculated using the National Kidney Foundation recommended 2020 CKD-EPI equation. Estimates GFR from serum creatinine, age and sex. Testing performed or reported by [facility], a Service of [address] [address] Alejandra Rhodes MD, Publications Sales Representative CLIA# [id number] 11/18/2022 10:0 9 AM EDT 11/18/2022 10:43 AM EDT Raymundo Paz MD LAB BLOOD ORDERABLES Final Re sult Performing Organization Address [facility] de Phone Number [facility] * Magnesium (11/18/2022 10:09 AM EDT) Magnesium 1.9 (1.6-2.3) mg/dL [facility] Comment: Testing performed or reported by [facility], a Service of [facility], [address] [place] [address] Alejandra Rhodes MD, Publications Sales Representative [place]# [id number] 11/18/2022 10:0 9 AM EDT 11/18/2022 10:43 AM EDT Raymundo Paz MD LAB BLOOD ORDERABLES Final Re sult Performing Organization Address [facility] de Phone Number [facility] * Albumin (11/18/2022 10:09 AM EDT) Albumin 4.4 (3.4-4.8) GM/DL [facility] Comment: Testing performed or reported by [facility], a Service of [address] [address] Alejandra Rhodes MD, Publications Sales Representative CLIA# [id number] 11/18/2022 10:0 9 AM EDT 11/18/2022 10:43 AM EDT us Raymundo Paz MD LAB BLOOD ORDERABLES Final Re sult Performing Organization Address [facility] de Phone Number [facility] * (ABNORMAL) Urinalysis with microscopic (11/18/2022 10:09 AM EDT) Appearance LIGHT YELLOW [facility] Comment:CLEAR Specific [place] 1.017 (1.002-1. 030) [facility] pH Urine 6.0 (5.0-8.0) [facility] Albumin, Urine 1+(A) (NEG) [facility] Glucose, Ur NEGATIVE (NEG) [facility] Ketones, Urine NEGATIVE (NEG) [facility] Bilirubin Urine NEGATIVE (NEG) [facility] Hemoglobin Presence in Urine NEGATIVE (NEG) [facility] Nitrite, Urine NEGATIVE (NEG) [facility] Leukocyte Esterase Urine NEGATIVE (NEG) [facility] Urobilinogen Urine NORMAL (NORM) MG/DL [facility] WBC, Urine 1 (0-5) /HPF [facility] RBC, Urine 1 (0-3) /HPF [facility] Mucus, Urine SLIGHT /LPF [facility] Squamous Epithelial, Urine 1 (0-8) /HPF [facility] Comment: Testing performed or reported by [facility], a Service of [facility], [address] [place] [address] Alejandra Rhodes MD, Publications Sales Representative [place]# [id number] 11/18/2022 10:0 9 AM EDT 11/18/2022 10:43 AM EDT Result [facility] Raymundo Paz MD LAB URINE ORDERABLES Final Re sult Performing Organization Address [facility] de Phone Number [facility] * PTH, Intact (11/18/2022 10:09 AM EDT) Pathologist [facility] PTH, Intact 56 (15-65) PG/ML [facility] Comment: Testing performed or reported by [facility], a Service of [facility], [address] [place] [address] Alejandra Rhodes MD, Publications Sales Representative CLIA# [id number] 11/18/2022 10:0 9 AM EDT 11/18/2022 10:43 AM EDT Raymundo Paz MD LAB BLOOD ORDERABLES Final Re sult Performing Organization Address [facility]/ZIP Co de Phone Number [facility] * (ABNORMAL) CBC (11/18/2022 10:09 AM EDT) White Blood Cells 7.2 (4.0-11.0) K/MM3 [facility] RBC 3.83(L) (4.70-6.10 ) M/MM3 [facility] Hgb 12.3(L) (13.7-17.1 ) GM/DL [facility] Hematocrit 38.8(L) (40.5-50.0 ) % [facility] MCV 101.3(H) (80.0-94.0 ) FL [facility] MCH 32.1 (27.0-34.0 ) PG [facility] MCHC 31.7(L) (33.0-37.0 ) g/dL [facility] Platelets 200 (150-460) K/MM3 [facility] RDW-SD 48.8(H) (<47.0) FL [facility] MPV 11.6 (9.4-12.4) FL [facility] nRBC Count 0.0 #/100 WBC'S [facility] NRBC Absolute 0.0 K/MM3 [facility] Comment: Testing performed or reported by [facility], a Service of [facility], [address] [place] [address] Alejandra Rhodes MD, Publications Sales Representative [facility]# [id number] 11/18/2022 10:0 9 AM EDT 11/18/2022 10:43 AM EDT us Raymundo Paz MD LAB BLOOD ORDERABLES Final Re sult RAJI documented in this encounter Visit Diagnoses Not on filedocumented in this encounter Care Teams Communications Controller Relationship Specialty Start Date End Date Fabio De La Garza MD [address] [place] [address] PCP - General Internal Medicine 07/15/21 documented as of this encounter
--- OUTSIDE RECORDS SUMMARY | 2025-05-25 18:37 | XMS_ITS | Clinical Summary ---
Author Organization [facility] Address [address] [facility] [address] [place] [address] Phone Care Team Providers Care Lumber Sticker Name Role Phone Fabio De La Garza MD Primary Care Provider [phone] Allergies No known active allergies Medications simvastatin [...] EDT) SODIUM 138 135 - 145 mmol/L [facility] CHLORIDE 102 98 - 107 mmol/L [facility] POTASSIUM 4.2 3.5 - 5.0 mmol/L [facility] CO2 25 24 - 32 mmol/L [facility] BUN 33(H) 8 - 25 mg/dL [facility] CREATININE 1.34 0.50 - 1.40 mg/dL [facility] GLUCOSE 155(H) 70 - 110 mg/dL [facility] CALCIUM 9.0 8.5 - 10.0 mg/dL [facility] EGFR 57(L) >59 mL/min/1.7 3m2 [facility] Comment:Estimated glomerular filtration rate calculated using the CKD-EPI refit equation. ANION GAP 11 3 - 15 mmol/L [facility] Blood 03/21/2023 11:1 0 PM EDT 03/21/2023 11:17 PM EDT us Ranjan Camacho MD LAB BLOOD ORDERABLES Final Result [address] [id number] from Last 3 Months or Most Recently Relevant to Health Maintenance Insurance MEDICARE PART A & B [facility] MEDICARE SUPPLEMENT MEDICARE PART A & B [facility] MEDICARE SUPPLEMENT MEDICARE PART A & B [employer] MED[employer] SUPPLEMENT MEDICARE PART A & B [employer] [facility] MEDICARE SUPPLEMENT MEDICARE PART A & B [facility] MEDICARE SUPPLEMENT MEDICARE PART A & B [facility] MEDICARE SUPPLEMENT [facility] MEDICARE SUPPLEMENT MEDICARE PART A & B [facility] MEDICARE SUPPLEMENT MEDICARE PART A & B [facility] MEDICARE SUPPLEMENT Care Teams Lumber Sticker Relationship Specialty Start Date End Date Fabio De La Garza MD [address] [place] [address] PCP - General Internal Medicine 10/08/17 Additional Source Comments The information contained in this document represents components of the legal health record. It is not the complete legal health record.[facility]
--- OUTSIDE RECORDS SUMMARY | 2025-05-25 18:37 | XMS_ITS | Data Portability ---
Author Organization [facility], OFFICE Address [address] [facility], [facility] [address] [place] [address] Assessment Encounter Date Assessment Date Assessment LastModified [...] Singh MD [address], [place], [address], [place] - Comp-Assistd and Rcnstrctive Surgry 08/12/2017 17:33:36 General Surgery completed Gera Singh MD [address], [place], [address], [place] - Comp-Assistd and Rcnstrctive Surgry 08/12/2017 17:34:06 Knee Surgery completed Gera Singh MD [address], [place], [address], [place] Comp-Assistd and Rcnstrctive Surgry 08/12/2017 17:34:25 Hip Surgery completed Gera Singh MD [address], [place], [address], [place] - Comp-Assistd and Rcnstrctive Surgry 10/26/2017 [...] Updated DateTime 08/12/2017 167.64 cm 38.7 kg/m2 911894.17 g 166/84 mm[Hg] Alicia Jones [place] - Comp-Assistd and Rcnstrctive Surgry 08/12/2017 16:31:54 Date Recorded Body height Body mass index (BMI) Body weight Systolic And Diastolic Provider Name and Address Organization Details Last Updated DateTime 08/17/2024 167.64 cm 41.2 kg/m2 699133.05 g 148/86 mm[Hg] Alicia Jones [place] - Comp-Assistd and Rcnstrctive Surgry 08/17/2024 13:24:12 Date Recorded Body height Body mass index (BMI) Body weight Systolic And Diastolic Provider Name and Address Organization Details Last Updated DateTime 10/26/2017 167.64 cm 39.2 kg/m2 087497.95 g 150/73 mm[Hg] Alicia Jones [place] - Comp-Assistd and Rcnstrctive Surgry 10/26/2017 13:11:40 Date Recorded Body height Body mass index (BMI) Body weight Provider Name and Address Organization Details Last Updated DateTime 11/23/2017 167.64 cm 39.5 kg/m2 084355.13 g Alicia Jones [place] - Comp-Assistd and Rcnstrctive Surgry 11/23/2017 12:07:21 Social History Question Answer Notes LastModified by Organizat ion Details LastModified Time Tobacco Smoking Status Former Smoker Gera Singh MD [address] [place] [address],[facility] [address], [place], [address], [place] - Comp-Assistd and Rcnstrctive Surgry 08/12/2017 17:32:27 What Was The Date Of Your Most Recent Tobacco Screening? 04/11/2024 [email or web address] Information not available 04/11/2024 Has Tobacco Cessation Counseling Been Provided? No [email or web address] Information not available 04/11/2024 Sex: Unknown Functional Status Question Answer Note LastModified by Organization D etails LastModified Time Do you or have you ever used any other forms of tobacco or nicotine? No [email or web address] Information not available 04/11/2024 Are you able to care for yourself independently? Yes [email or web address] Information not available 04/11/2024 Mental Status None [...] Thyroid Problems N Anemia N Heart Attack (DC) N Ulcers N Diabetes N Bleeding Disorder N Seizures/Epilepsy N Tuberculosis N AIDS/HIV N Asthma N Peripheral Vascular Disease N Hepatitis N Pulmonary Embolism N Hypertension Y Osteoporosis N Past Encounters Encounter ID Performer Location Encounter Start Date Encounter Closed Date Diagnosis/Indication Diagnosis SNOMED-CT Code Diagnosis ICD10 Code Diagnosis IMO Codes Diagnosis Note [id number] Gera Singh MD OFFICE [address] [facility] [address] [address] 08/12/2017 15:36:56 08/23/2017 15:09:43 [id number] Gera Singh MD OFFICE [address] [facility] [address] [address] 10/26/2017 12:18:58 10/26/2017 15:39:01 [id number] Gera Singh MD OFFICE [address] [facility] [address] [address] 11/23/2017 11:58:03 11/24/2017 17:00:49 [id number] Gera Singh MD [facility] [address] [place] [address] 04/11/2024 07:51:20 05/11/2024 16:35:13 [id number] Gera Singh MD OFFICE [address] [facility] [address] [address] 08/17/2024 12:40:59 08/24/2024 09:32:18 Health Concerns Section Related Observation LastModified by Organization Detai ls LastModified Time None Recorded Concern Status LastModified by Organization Details LastModified Time None Recorded Advance Directives Directive None Recorded Payers Insurance Date Sequence Insurance Name Policy Number Policy Montanez Covered Member ID Montanez Member ID Guarantor Name 08/24/2024 2 [facility] INDEMNITY PLAN (INDEMNITY) [id number] Espinoza Burrows [id number] Espinoza Burrows 08/03/2024 2 [facility] INDEMNITY PLAN (INDEMNITY) Espinoza Burrows 08/14/2024 1 MEDICARE B-CT: [facility] [employer] Espinoza Burrows [id number] Espinoza Burrows Notes Date Note Type [...] noted in the HPI Gera Singh MD [address] [place] [address],[facility] [address], [place], [address], [place] - Comp-Assistd and Rcnstrctive Surgry 08/12/2017 [...] (active hip flexion).ROS as noted in the [facility] Gera Singh MD [address],[facility] [address], [address], [place] - Comp-Assistd and Rcnstrctive Surgry 10/26/2017 [...] patient reportshelped significantly.ROS as noted in the [facility] Gera Singh MD [address],[facility] [address], [place], [address], [place] - Comp-Assistd and Rcnstrctive Surgry 11/23/2017 [...] the HPI Gera Singh MD [address],[facility] [address], [place], [address], [place] - Comp-Assistd and Rcnstrctive Surgry 04/11/2024 [...] the HPI Gera Singh MD [address],[facility] [address], [place], [address], [place] - Comp-Assistd and Rcnstrctive Surgry 08/17/2024 15:06:14
--- OUTSIDE RECORDS SUMMARY | 2025-05-25 18:37 | XMS_ITS | Patient Health Record ---
Author Organization [facility] Address [address] [place] [address] Care Team Providers Care Filler Shredder Name Role Phone Dr. Indra Padron Unavailable [phone] Reason For Referral No Information Medications Medication [...] Start Date Coverage End Date [id number] 8 Markos Jerrysteve Self - patient is the insured Medical (General) History Medical History History ICD Code kidney stones Surgical History Surgery Date(Month/Year) Lt kidney stone removal 1982
--- OUTSIDE RECORDS SUMMARY | 2025-05-25 18:38 | XMS_ITS | Clinical Summary ---
Author Organization [facility] Address [address] [place] [address] [place] [address] Phone Care Team Providers Care Manufacturing Inspector Name Role Phone Fabio De La Garza MD Primary Care Provider [phone] Allergies No known active allergies Medications albuterol [...] 90 tablet 5 Active ergocalciferol 1.25 MG (22432 UT) capsule TAKE 1 CAPSULE (50,000 UNITS [...] Refill [facility] [address] [place] [address] Raymundo Paz MD from Last 3 Months [...] Visit [facility] [address] [place] [address] Raymundo Paz MD [address] [facility] [address] [place] [address] Health Maintenance Due Date Last [...] 9.4 8.7 - 10.7 mg/dL eGFR Non-Afr [place]er 49 eGFR 57 Hemoglobin A1C 5.2 4.0 - 6.0 10/16/2020 us Historical Provider LAB BLOOD ORDERABLES Imelda l Result from Last 3 Months or Most Recently Relevant to Health Maintenance Insurance [facility] Medicare Unicare Medicare Care Teams Manufacturing Inspector Relationship Specialty Start Date End Date Fabio De La Garza MD [address] [place] [address] [place] PCP - General Internal Medicine 07/15/21
--- OUTSIDE RECORDS SUMMARY | 2025-05-25 18:38 | XMS_ITS | Encounter Summary ---
Author Organization [facility] Address [address] [place] [address] Phone Care Team Providers Care Editor Magazine Name Role Phone Fabio De La Garza MD Primary Care Provider [phone] Reason for Referral * Physical Therapy (Routine) - Closed Specialty Diagnoses / Procedures Referred By Tang barker Referred To Contact Physical Therapy Diagnoses Encounter for rehabilitation Gera Singh MD Phone: tel: fax: [facility] [address] [place] [address] Phone: tel: fax: Referral ID Status Reason Start Date Expiration Date Visits Re quested Visits Authorized [id number] Closed 11/03/2017 02/05/2018 25 25 Encounter Details Date Type Department Care Team (Latest Contact Info) Description 10/27/2017 Transcribe Orders [facility] [address] [place] [address] Gera Singh MD [address] [place] [address] Encounter for rehabilitation (Primary Dx) Social [...] Date/Time Associated Diagnosis Comments AMB REFERRAL TO [facility] PHYSICAL THERAPY Routine 11/03/2017 5:55 PM EDT Encounter for rehabilitation documented in this encounter Results * Ambulatory referral to [facility] Physical Therapy (11/03/2017 5:55 PM EDT) Gera Singh MD AMB [facility] REFERRALS Final Result documented in this encounter Visit Diagnoses Diagnosis Encounter for rehabilitation- Primary documented in this encounter Additional Health Concerns Infection Onset Date Last Indicated Resolved Time CoV-Risk 05/22/2022 05/22/2022 06/02/2022 1:23 AM EST RSV 05/22/2022 05/22/2022 05/29/2022 1:23 AM EDT documented as of this encounter Care Teams Editor Magazine Relationship Specialty Start Date End Date Fabio De La Garza MD [address] [place] [address] PCP - General Internal Medicine 10/08/17 documented as of this encounter Additional Source Comments The information contained in this document represents components of the legal health record. It is not the complete legal health record.[facility]
--- OUTSIDE RECORDS SUMMARY | 2025-05-25 18:38 | XMS_ITS | Encounter Summary ---
Author Organization [facility] Address [address] [place] [address] [place] [address] Phone Care Team Providers Care Industrial Gas Fitter Helper Name Role Phone Fabio De La Garza MD Primary Care Provider [phone] Reason for Referral * Physical Therapy (Routine) - Closed Specialty Diagnoses / Procedures Referred By Tang barker Referred To Contact Physical Therapy Diagnoses Encounter for rehabilitation Gera Singh MD Phone: tel: fax: [facility] [address] [place] [address] Phone: tel: Referral ID Status Reason Start Date Expiration Date Visits Re quested Visits Authorized [id number] Closed 11/24/2017 11/24/2018 1 1 Encounter Details Date Type Department Care Team (Latest Contact Info) Description 11/24/2017 Transcribe Orders [facility] [address] [place] [address] Gera Singh MD [address] [place] [address] Encounter for rehabilitation (Primary Dx) Social [...] Diagnoses Orde r Schedule Ambulatory referral to [facility] Physical Therapy Outpatient Referral Routine Encounter for rehabilitation Ordered: 11/24/2017 documented as of this encounter Visit Diagnoses Diagnosis Encounter for rehabilitation- Primary documented in this encounter Additional Health Concerns Infection Onset Date Last Indicated Resolved Time CoV-Risk 05/22/2022 05/22/2022 06/02/2022 1:23 AM EST RSV 05/22/2022 05/22/2022 05/29/2022 1:23 AM EDT documented as of this encounter Care Teams Industrial Gas Fitter Helper Relationship Specialty Start Date End Date Fabio De La Garza MD [address] [place] [address] PCP - General Internal Medicine 10/08/17 documented as of this encounter Additional Source Comments The information contained in this document represents components of the legal health record. It is not the complete legal health record.[facility]
--- OUTSIDE RECORDS SUMMARY | 2025-05-25 18:38 | XMS_ITS | Clinical Summary ---
Author Organization 175 [facility] Address [address] [place] [address] Phone Care Team Providers Care Customer Training Specialist Name Role Phone Andrzej Souza MD Primary Care Provider [phone]- [phone] Allergies No known active allergies Medications nebivoloL [...] microalbuminuria, without long-term current use of insulin ([facility] V24, [facility] V28) 12/30/2024 Overview (12/30/2024): Patient with known [...] left 12/30/2024 Overview (12/30/2024): Done over at [facility] 2018 Mild intermittent asthma without complication Overview (12/30/2024): Noted on record from nephrology Enlarged prostate 12/30/2024 Overview (12/30/2024): Noted on records from nephrology History of adenomatous polyp of colon 05/29/2022 Chronic kidney disease due to benign hypertensio n 01/02/2021 Primary hypertension 12/21/2020 Obesity 12/21/2020 Encounters Date Type Department Care Team Description 05/18/2025 9:45 AM EDT Treatment [facility] Occupational Therapy [address] [phone] Ihsan Connor, OT Acquired trigger finger of left ring finger (Primary Dx); Carpal tunnel syndrome, bilateral 05/11/2025 10:30 AM EDT Treatment [facility] Occupational Therapy [address] [place] [phone] Ihsan Connor, OT Carpal tunnel syndrome, bilateral (Primary Dx); Acquired trigger finger of left ring finger 05/09/2025 10:00 AM EDT Treatment [facility] Occupational Therapy [address] [place] [phone] Ihsan Connor, OT Carpal tunnel syndrome, bilateral (Primary Dx); Acquired trigger finger of left ring finger 05/03/2025 9:15 AM EDT Treatment [facility] Occupational Therapy [address] [place] [phone] Kristen Martin COTA/cA Carpal tunnel syndrome, bilateral (Primary Dx); Acquired trigger finger of left ring finger 04/27/2025 9:30 AM EDT Evaluation [facility] Occupational Therapy [address] [place] [phone] Ihsan Connor, OT Acquired trigger finger of left ring finger (Primary Dx); Carpal tunnel syndrome, bilateral 04/27/2025 Plan of Care Documentation [facility] Occupational Therapy [address] [place] [phone] 04/11/2025 10:45 AM EDT Office Visit Orthopedic Surgery - North 175 [facility] [address] [place] [phone] Antonina Melendez MD Bilateral carpal tunnel syndrome (Primary Dx); Right carpal tunnel syndrome 03/16/2025 7:46 AM EDT Anesthesia Event [facility] Main OR [address] [place] [phone] Tristian Moore MD Spencer, Mark A, MD 03/16/2025 7:30 AM EDT - 03/16/2025 8:45 AM EDT Surgery [facility] OR [address] [place] [phone] Antonina Melendez MD ENDOSCOPIC RELEASE LEFT CARPAL TUNNEL [[id number] (CPT )] 03/16/2025 6:09 AM EDT - 03/16/2025 9:37 AM EDT Hospital Encounter [facility] OR [address] [place] [phone] Antonina Melendez MD Carpal tunnel syndrome of left wrist (Primary Dx) Discharge Disposition: Home or Self Care 02/27/2025 [facility] [address] [phone] Antonina Melendez MD from Last 3 Months Surgical History Surgery Date Site/Laterality Comments ORIF RADIUS & ULNA FRACTURES 07/27/1973 - 07/26/1974 Right radius OTHER SURGICAL HISTORY EXPLORATORY LAPAROTOMY BLADDER REPAIR BLADDER SURGERY LITHOTRIPSY KIDNEY STONE SURGERY HIP ARTHROPLASTY CARPAL TUNNEL RELEASE 03/16/2025 Left Left endoscopic carpal tunnel release Medical History Medical History Date Comments Hypertension Asthma OCCASIONAL Sleep apnea Diabetes mellitus ([facility] V24, [facility] V28) Chronic kidney disease History of transfusion [...] 07/18/2025 10:00 AM EST Consult Orthopedic Surgery [facility] [address] [phone] Antonina Melendez MD [address] [place] [phone] 08/02/2025 8:30 AM EST Hospital Encounter [facility] [address] [place] [phone] Antonina Melendez MD [address] [place] [phone] 08/02/2025 8:30 AM EST - 08/02/2025 10:15 AM EST Surgery [address] [phone] Antonina Melendez MD [address] [place] [phone] RELEASE CARPAL TUNNEL ENDOSCOPIC-RIGHT [[id number] (CPT )] 08/11/2025 9:00 AM EST Office Visit Orthopedic Surgery [address] [phone] Alicia Zamudio PA [address] [place] [phone] Scheduled Procedures Name Priority Associated Diagnoses Date/Ti [...] Procedure Name Priority Date/Time Associated Diagnosis Comments [place] [facility] WRIST SURGICAL WITH RELEASE TRANSVERSE CARPAL LIGAMENT 03/16/2025 7:46 AM EDT Carpal tunnel syndrome POCT GLUCOSE BLOOD Routine 03/16/2025 6: 29 AM EDT from Last 3 Months Results * (ABNORMAL) POCT Glucose, blood (03/16/2025 6:29 AM EDT) Glucose POCT 111(H) 70 - 100 mg/dL 03/16/2025 6:30 AM EDT [facility] Blood Capillary blood specimen / Unknown 03/16/2025 6:29 AM EDT 03/16/2025 6:31 AM EDT us Antonina Melendez MD LAB POINT OF CARE TE ST DOCKED DEVICE UNSOLICITED RESULTS Final Result [facility] [address] [place] [address], [place] [phone] from Last 3 Months Insurance MEDICARE [facility] Advance Directives * Full Code - [...] currently active code status orders. Care Teams Customer Training Specialist Relationship Specialty Start Date End Date Andrzej Souza MD [facility] [address] [place] [address] [address] [facility] [id number] PCP - General Internal Medicine 03/16/25
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
--- OUTSIDE RECORDS SUMMARY | 2025-05-25 18:38 | XMS_ITS | Encounter Summary ---
Author Organization [facility] Address [address] [place] [address] [place] [phone] Phone Care Team Providers Care Pillow Agent Name Role Phone Fabio De La Garza MD Primary Care Provider [phone]- [phone] Encounter Details Date Type Department Care Team (Late st Contact Info) Description 03/21/2023 Procedure [facility] - [facility] [address] [place] [address] Social History Tobacco Use Types Packs/Day Years [...] 10:39 PM EDT Marissa Sandoval RN * [place] Suicide Severity Rating Scale (Screener/Recent Self-Report) Question [...] on filedocumented in this encounter Care Teams Pillow Agent Relationship Specialty Start Date End Date Fabio De La Garza MD [address] [place] [id number] PCP - General Internal Medicine 10/08/17 documented as of this encounter Additional Source Comments The information contained in this document represents components of the legal health record. It is not the complete legal health record.[facility]
[2025-05-25 21:23] VITALS: BP 171/70
[2025-05-25 21:24] VITALS: BP 171/70
[2025-05-25 21:27] VITALS: BP 171/70; PULSE 73; RESP 18; O2SAT 94
[2025-05-25] MEDS: iohexoL 350 MG/ML 100 ML INFUS..BTL 60 ML IV (21:53)
[2025-05-25 22:49] VITALS: BP 179/69; PULSE 80; RESP 20; O2SAT 95
[2025-05-25] MEDS: Tranexamic Acid 1,000 MG in 0.9 % Sodium Chloride 50 ML 360 MG IV (23:25)
--- NOTE | 2025-05-26 01:08 | PC.NURSE ---
report called to Nisha at [facility]. EMS here for pt transport
== END 2025-05-26 01:58 | disposition short-term general hospital (02) ==
PROVIDERS: Emergency Provider Student in an Organized Health Care Education/Training Program; PCP Internal Medicine
DX: T78.3XXA Angioneurotic edema, initial encounter (principal); R06.00 Dyspnea, unspecified; I10 Essential (primary) hypertension
CPT/HCPCS: 36415; 70491; 80053; 83735; 85025; 96361; 96374; 99285; 99291; J2151; J3475; Q9967

== ENCOUNTER → 2025-05-25 21:34 | Outpatient (BNV) | payer MEDICARE, OTHER, SELFPAY | PROVIDERS: Emergency Provider Student in an Organized Health Care Education/Training Program; PCP Internal Medicine; Visit Provider Radiology Diagnostic Radiology | DX: R22.1 Localized swelling, mass and lump, neck (principal) | CPT/HCPCS: 70491 ==

== ENCOUNTER 2025-05-29 15:27 | Outpatient (AMB) | payer MEDICARE, OTHER, SELFPAY ==
--- OUTSIDE RECORDS SUMMARY | 2025-05-26 01:30 | XMS_ITS | Encounter Summary ---
Author Organization [facility] Address [address] [place] [address] Care Team Providers Care Alarm Adjuster Name Role Phone Kimani Cueva MD Primary Care Provider [phone] Reason for Referral * Allergy, Asthma, and Immunology (Routine) - Authorized Specialty Diagnoses / Procedures Referred By Contclive t Referred To Contact Diagnoses facial swelling Ranjan Bolden MD [address] [place] [id number] Phone: tel: fax: Referral ID Status Reason Start Date Expiration Date Visits Requested Visits Authorized [id number] Authorized Specialty Services Required 06/25/2026 6 6 Reason for Visit * Reason Comments Facial Swelling Encounter Details Date Type Department Care Team (Late st Contact Info) Description 05/26/2025 2:30 AM EDT - 05/26/2025 2:13 PM EDT Emergency [facility] Emergency Department [address] [place] [id number] Ranjan Bolden MD [address] [place] [id number] Facial swelling (Primary Dx) Discharge Disposition: Home or Self Care () Social History Tobacco Use Types Packs/Day Years Used Date Smoking Tobacco: Never Assessed Sex and Gender Information Value Date Recorded Sex Assigned at Male 05/26/2025 2:28 AM EDT Legal Sex Male 1:16 AM EDT Gender Identity Male 05/26/2025 2:28 AM EDT Sexual Orientation Not on file documented as of this encounter Last Filed Vital Signs Vital Sign Reading Time Taken Comments Blood Pressure 154/85 05/26/2025 1:30 PM EDT Pulse 74 05/26/2025 1:30 PM EDT Temperature 36.6 C (97.9 F) 05/26/2025 5:40 AM EDT Respiratory Rate 21 05/26/2025 1:30 PM EDT Oxygen Saturation 99% 05/26/2025 1:30 PM EDT Inhaled Oxygen Concentration - - Weight 117.9 kg (260 lb) 05/26/2025 2:40 AM EDT Height 167.6 cm (5' 6 ) 05/26/2025 2:40 AM EDT Body Mass Index 41.97 05/26/2025 2:40 AM EDT documented in this encounter Discharge Instructions * Discharge Instructions* Kareen Porras MD - 05/26/2025 9:15 AM EDT You were seen in the ED for facial swelling. You were seen by ENT who recommended being discharged on a methylprednisolone dose pack. This has been prescribed. Stop taking your doxycycline. Take augmentin twice a day for 5 days. Follow up with your PCP within a week. 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 A referral has been placed. Please return to the ED if your swelling worsens or you have any other concerns. documented in this encounter Medications at Time of Discharge amoxicillin-clav ulanate (AUGMENTIN) 875-125 mg tablet Take 1 tablet (875 mg total) by mouth every 12 hours for 5 days. 10 tablet 05/26/2025 methylPREDNISolo ne (MEDROL DOSEPACK) 4 mg tablet follow package directions 1 tablet 05/26/2025 documented as of this encounter Consult Notes * FRANSISCA Pavon - 05/26/2025 12:05 PM EDTAssociated Order(s): Inpatient consult to ENT Initial Consult Note Inpatient consult to ENT Consult performed by: FRANSISCA Pavon Consult ordered by: Ranjan Bolden MD Reason for consult: angioedema HISTORY OF PRESENT ILLNESS: History obtained from: Patient and Medical Record Espinoza Burrows is a 70 yo male who presents as a transfer from outside after acutely developing facial swelling while at home yesterday. Patient reports swelling around the lips under the tongue and around the mouth. He called EMS and used his home CPAP machine to keep his airway open. He is on a home dose of lisinopril and also started doxycycline for a tick bite earlier in the week. While at an outside hospital he was given 2 doses of epinephrine, Solu-Medrol, Benadryl and 1 dose of TXA. Swelling has since improved and is now resolved. He denies any dysphonia, shortness of breath or stridor. He underwent CT neck imaging while at the outside hospital that did show evidence of some pharyngeal edema. Patient was transferred to [facility] for further workup and management. ENT was consulted todaybedside laryngoscopy to assess airway patency. Subjective REVIEW OF SYSTEMS: All other ROS is negative outside pertinent positives listed in HPI Past Medical History: No Past Medical History Past Surgical History: No Surgical History Medications Current Medications: Current Medications[1] Allergies: No Known Allergies Social History: Tobacco Use Smoking status: Not on file Smokeless tobacco: Not on file Substance Use Topics Alcohol use: Not on file Drug use: Not on file Family History: No family history on file. Objective Temp: [36.6 ??C (97.9 ??F)-36.8 ??C (98.2 ??F)] 36.6 ??C (97.9 ??F) Heart Rate: [67-85] 67 Resp: [14-19] 19 BP: (146-187)/(62-86) 159/71 SpO2: [95 %-97 %] 97 % . Active Lines Name Placement date Placement time Site Days Peripheral IV 05/26/25 Right Antecubital 05/26/25 -- Antecubital less than 1 , Active Drains None , Active Airways None VENT SETTINGS (LAST 12 HOURS): Physical Exam General: NAD, clear voice, no stridor Face: Symmetric, no skin erythema or lesions, no parotid enlargement Eyes: EOMI, PERRL, no periorbital edema or erythema Ears: Right ear: Auricle well formed. Mastoid soft and nontender, no erythema. Left ear: Auricle well formed. Mastoid soft and nontender, no erythema. Nose: Midline, no drainage, mucosa pink and moist, mild turbinate hypertrophy Oral Cavity: Mucous membranes moist and pink, no discrete lesions or masses, clear saliva from roxana's and leonard's ducts bilaterally Oropharynx: Soft palate and posterior pharyngeal wall symmetric, no erythema or exudates Neck: Soft and flat, no palpable lymphadenopathy Neurologic: CN II-XII intact and equal TRANSNASAL FIBEROPTIC LARYNGOSCOPY: After verbal consent was obtained, comprehensive upper airway exam was performed using a flexible fiberoptic scope. The endoscope was passed gently along in the inferior border of the nose. Right nasal cavity was unremarkable. Nasopharynx and oropharynx were non-erythematous and without mass or lesion. Base of tongue, vallecula, epiglottis, pyriform sinuses, and aryepiglottic folds are all within normal limits. Vocal cords are symmetrically mobile with full range of motion. There is some mild fullness of the pharyngeal wall. Result Review Recent Results (from the past 24 hours) CBC Auto Differential Collection Time: 05/26/25 5:01 AM Specimen: Venous, Peripheral; Blood Result Value Ref Range WBC 10.4 3.8 - 10.8 10*3/uL RBC 3.75 (L) 4.20 - 5.80 10*6/uL Hemoglobin 12.0 (L) 13.2 - 17.1 g/dL Hematocrit 35.5 (L) 38.5 - 50.0 % MCV 94.7 80.0 - 100.0 fL MCH 32.0 27.0 - 33.0 pg MCHC 33.8 32.0 - 36.0 g/dL RDW 13.2 11.0 - 15.0 % Platelets 282 140 - 400 10*3/uL MPV 10.7 7.5 - 12.5 fL Neutrophil % 86.0 % Immature Grans % 1.0 (H) 0.0 - 0.9 % Lymphocyte % 12.0 % Monocyte % 0.8 % Eosinophil % 0.0 % Basophil % 0.2 % Neutrophil # 8.99 (H) 1.50 - 7.80 10*3/uL Immature Grans # 0.10 (H) <=0.03 10*3/uL Lymphocyte # 1.30 0.85 - 3.90 10*3/uL Monocyte # 0.10 (L) 0.20 - 0.95 10*3/uL Eosinophil # <0.03 0.02 - 0.50 10*3/uL Basophil # <0.03 0.00 - 0.20 10*3/uL nRBC % 0.0 /100 WBCs nRBC # <0.01 <0.01 10*3/uL BMP - Basic Metabolic Panel Collection Time: 05/26/25 5:01 AM Specimen: Venous, Peripheral; Blood Result Value Ref Range NA 140 135 - 145 mmol/L K 4.8 3.5 - 5.3 mmol/L Cl 109 97 - 110 mmol/L CO2 19 (L) 22 - 32 mmol/L BUN 28 (H) 7 - 23 mg/dL Creatinine 1.14 0.60 - 1.30 mg/dL Glucose 154 (H) 65 - 99 mg/dL Calcium 8.7 8.6 - 10.5 mg/dL Anion Gap 12 5 - 15 eGFR 68 >=60 mL/min/1.73m2 Imaging/Other Studies CT Neck w contrast reviewed - evidence of pharyngeal edema Assessment & Plan This is a 70 yo male that presents today with a history of acute facial and submental swelling at home. He presented to outside hospital via ambulance after experiencing some shortness of breath at home. He recently started doxycycline earlier in the week after a tick bite and has been on lisinopril for his high blood pressure for many years. CT imaging at outside hospital did show some pharyngeal edema and he was transferred to [facility] for further workup and management. After receiving steroids swelling has improved and patient feels his breathing is back to baseline. We did perform a bedside laryngoscopy today which does show a patent airway with symmetric movement of bilateral true vocal cords. He does have some very mild fullness appreciated of the pharyngeal wall will plan to start a short course of oral steroids. Plan: [ ] medrol dose pack given residual pharyngeal fullness [ ] outpatient allergy eval given new onset of angioedema [ ] HTN meds per ED/primary team [ ] airway patent on laryngoscopy; no further ENT interventions at this time GLOBAL PLAN OF CARE: I have discussed the plan of care with: Patient and Attending. FRANSISCA Philip-C Otolaryngology 05/26/25 [1] allopurinoL (ZYLOPRIM) tablet 200 mg, 200 mg, oral, Daily hydrALAZINE (APRESOLINE) tablet 50 mg, 50 mg, oral, q12h simvastatin (ZOCOR) tablet 20 mg, 20 mg, oral, Daily Cosigned by Mike Blandon Jr., MD at 05/27/2025 8:27 PM EDT Associated attestation - Mike Blandon Jr., MD - 05/27/2025 8:27 PM EDT VETERINARY PRACTICE MANAGER/PA note reviewed Mike Blandon Jr., MD documented in this encounter ED Notes * Alanna Duran MD - 05/26/2025 2:24 AM EDT History HPI: Chief Complaint Patient presents with Facial Swelling 70 y.o. male presents as a transfer from [facility] after likely angioedema episode. Patient states that he woke up on at 1am with swelling of his lips, sublingually, and periorally. He states the swelling went down so he was not worried about it. Around noon the same day, the swelling returned and he suddenly was unable to breath. He states he called EMS and used his home CPAP machine to keep his airway open. Of note, he was prescribed doxycycline for a tick bite which he began taking Thursday and had taken 5 doses of doxycycline, a medication he had never taken. He was given 2 doses epinephrine, solumedrol, benadryl, and 1 gram TXA and reports the swelling improved. Heis also on lisinopril for HTN and believes he could have been exposed to other illnesses while at urgent care on Thursday while he waited to be seen. 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 No past surgical history on file. No family history on file. Sexuality and Gender Identity Sexuality Legal Information Legal first name: Espinoza Legal last name: Markos Legal sex: Male Gender Identity Patient's gender identity: Male Patient's sex assigned at : Male Organ Inventory Organs the patient currently has: Organs present at or expected at to develop: Organs surgically enhanced or constructed: Organs hormonally enhanced or developed: breasts cervix ovaries uterus vagina penis prostate testes Review of Systems REVIEW OF SYSTEMS: Physical Exam Physical Exam ED Triage Vitals Temp Heart Rate Resp BP SpO2 05/26/2523905/26/2523905/26/2523905/26/2523905/26/25239 36.8 ??C (98.2 ??F) 82 16 153/67 96 % Temp src Heart Rate Source Patient Position BP Location Set FiO2 (O2%) -- 05/26/2541305/26/2541305/26/25413 -- Monitor Lying Right arm Physical Exam Vitals reviewed. HENT: Head: Right periorbital erythema and left periorbital erythema present. Jaw: No swelling. Mouth/Throat: Mouth: Mucous membranes are moist. No angioedema. Cardiovascular: Heart sounds: Normal heart sounds. Pulmonary: Effort: Pulmonary effort is normal. No respiratory distress. Breath sounds: Normal breath sounds. No stridor. No wheezing or rales. Medical Decision Making and ED Course Assessment and Plan: 70 y.o. male presents as a transfer from [facility] after likely angioedema episode. Patient states that he woke up on at 1am with swelling of his lips, sublingually, and periorally. He states the swelling went down so he was not worried about it. Around noon the same day, the swelling returned and he suddenly was unable to breath. He states he called EMSand used his home CPAP machine to keep his airway open. Of note, he was prescribed doxycycline for a tick bite which he began taking Thursday and had taken 5 doses of doxycycline, a medication he had never taken. He was given 2 doses epinephrine, solumedrol, benadryl, and 1 gram TXA and reports the s welling improved. He is also on lisinopril for HTN and believes he could have been exposed to otherillnesses while at urgent care on Thursday while he waited to be seen. He does have a history of Asthma with some inhaler use. On physical exam, his lungs are clear without wheezing or stridor. He has an area of submandibular firmness which he is unsure is different from his baseline. His perioral swelling seems to be improved. Will repeat basic blood work. Patient has CT scans from [place], we will obtain independent readings of these scans. Espinoza Burrows : 1955 CSN: [id number] Alanna Duran MD Resident 05/26/25739 Alanna Duran MD Resident 05/26/25739 Cosigned by Ranjan Bolden MD at 05/28/2025 6:12 AM EST Associated attestation - Ranjan Bolden MD - 05/28/2025 6:12 AM EST I saw, examined and evaluated the patient, discussed the case with the resident/fellow/SHAYE and agree with the findings and plan as documented in the record. Marrero elements, clarifications and/or exceptions are noted by me. I am responsible for a substantial portion of the medical decision making which included a review of the patient's condition, diagnostic tests, and approving the treatment plan. Espinoza Burrows : 1955 CSN: [id number] documented in this encounter Plan of Treatment Pending Results Name Type Priority Associated Diagnoses Date/Time MRI LOWER EXTREMITY INTERPRETATION OF OUTSIDE IMAGES (OUTSIDE STUDY) Imaging [facility] STAT 05/26/2025 5:[address] Transfer of Outside Films Imaging STAT 05/26/2025 9:38 AM EDT Scheduled Orders Name Type Priority Associated Diagnoses Order Schedule MRI LOWER EXTREMITY INTERPRETATION OF OUTSIDE IMAGES (OUTSIDE STUDY) Imaging [facility]ine Routine Once for 1 Occurrences starting 05/26/2025 until 05/26/2025 CT Transfer of Outside Films Imaging STAT Once for 1 Occurrences starting 05/26/2025 until 05/26/2025 Scheduled Referrals Name Type Priority Associated Diagnoses Order Schedule Ambulatory referral to Allergy Outpatient Referral Routine Expected: 05/26/2025, Expires: 06/25/2026 documented as of this encounter Procedures * Due to [place] law, this organization might not be sharing negative HIV tests. Procedure Name Priority Date/Time Associated Diagnosis Comments CBC AUTO DIFFERENTIAL STAT 05/26/2025 5:01 AM EDT BASIC METABOLIC PANEL STAT 05/26/2025 5:01 AM EDT documented in this encounter Results * Due to [place] law, this organization might not be sharing negative HIV tests. * (ABNORMAL) BMP - Basic Metabolic Panel (05/26/2025 5:01 AM EDT) NA 140 135 - 145 mmol/L 05/26/2025 5:48 AM EDT [facility] K 4.8 3.5 - 5.3 mmol/L 05/26/2025 5:48 AM EDT [facility] Cl 109 97 - 110 mmol/L 05/26/2025 5:48 AM EDT [facility] CO2 19(L) 22 - 32 mmol/L 05/26/2025 5:48 AM EDT [facility] BUN 28(H) 7 - 23 mg/dL 05/26/2025 5:48 AM EDT [facility] Creatinine 1.14 0.60 - 1.30 mg/dL 05/26/2025 5:48 AM EDT [facility] Glucose 154(H) 65 - 99 mg/dL 05/26/2025 5:48 AM EDT [email or web address] [facility] Calcium 8.7 8.6 - 10.5 mg/dL 05/26/2025 5:[address] [facility] [employer] [facility] Anion Gap 12 5 - 15 05/26/2025 5:[address] [facility] [employer] [facility] eGFR 68 >=60 mL/min/1. 73m2 05/26/2025 5:[address] [facility] [employer] [facility] Comment:The estimated glomer ular filtration rate (eGFR) is calculated using a new formula developed by the NKF-ASN task force to eliminate race-based correction factors. The new formula uses serum/plasma creatinine, age, and gender to determine eGFR. A value below 60mls/min might indicate kidney disease and will be flagged. For additional information, see Jeremy et al, Am J Kidney Dis. 2021;79(2):268- 288, A Unifying Approach for GFR estimation: Recommendations of the NKF-ASN Task Force on Reassessing the Inclusion of Race in Diagnosing Kidney Disease . Blood Structure of peripheral vein / Unknown Venipuncture / Unknown 05/26/2025 5:01 AM EDT 05/26/2025 5:18 AM EDT us Ranjan Bolden MD LAB BLOOD ORDERABLES Final Result [facility] [employer] [facility] [address] [place] [id number], * (ABNORMAL) CBC Auto Differential (05/26/2025 5:01 AM EDT) WBC 10.4 3.8 - 10.8 10*3/uL 05/26/2025 5:[address] [facility] [employer] [facility] RBC 3.75(L) 4.20 - 5.80 10*6/uL 05/26/2025 5:22 AM EDT [facility] [employer] [facility] Hemoglobin 12.0(L) 13.2 - 17.1 g/dL 05/26/2025 5:22 AM EDT [facility] Hematocrit 35.5(L) 38.5 - 50.0 % 05/26/2025 5:22 AM EDT [employer] [facility] [employer] MCV 94.7 80.0 - 100.0 fL 05/26/2025 5:22 AM EDT [facility] [employer] MCH 32.0 27.0 - 33.0 pg 05/26/2025 5:22 AM EDT [employer] [facility] [employer] MCHC 33.8 32.0 - 36.0 g/dL 05/26/2025 5:22 AM EDT [facility] RDW 13.2 11.0 - 15.0 % 05/26/2025 5:22 AM EDT [employer] [employer] [facility] Platelets 282 140 - 400 10*3/uL 05/26/2025 5:22 AM EDT [employer] [employer] MPV 10.7 7.5 - 12.5 fL 05/26/2025 5:22 AM EDT [employer] [employer] Neutrophil % 86.0 % 05/26/2025 5:22 AM EDT [facility] Immature Grans % 1.0(H) 0.0 - 0.9 % 05/26/2025 5:22 AM EDT [facility] Lymphocyte % 12.0 % 05/26/2025 5:22 AM EDT [employer] Monocyte % 0.8 % 05/26/2025 5:22 AM EDT [facility] Eosinophil % 0.0 % 05/26/2025 5:22 AM EDT [facility] Basophil % 0.2 % 05/26/2025 5:22 AM EDT [employer] [facility] Neutrophil # 8.99(H) 1.50 - 7.80 10*3/uL 05/26/2025 5:22 AM EDT [facility] Immature Grans # 0.10(H) <=0.03 10*3/uL 05/26/2025 5:22 AM EDT [facility] Lymphocyte # 1.30 0.85 - 3.90 10*3/uL 05/26/2025 5:22 AM EDT [facility] Monocyte # 0.10(L) 0.20 - 0.95 10*3/uL 05/26/2025 5:22 AM EDT [facility] Eosinophil # <0.03 0.02 - 0.50 10*3/uL 05/26/2025 5:22 AM EDT [facility] Basophil # <0.03 0.00 - 0.20 10*3/uL 05/26/2025 5:22 AM EDT [facility] nRBC % 0.0 /100 WBCs 05/26/2025 5:22 AM EDT [facility] nRBC # <0.01 <0.01 10*3/uL 05/26/2025 5:22 AM EDT [facility] Blood Structure of peripheral vein / Unknown Venipuncture / Unknown 05/26/2025 5:01 AM EDT 05/26/2025 5:13 AM EDT us Ranjan Bolden MD LAB BLOOD ORDERABLES Final Result [facility] [address] documented in this encounter Visit Diagnoses Diagnosis Facial swelling- Primary Swelling, mass, or lump in head and neck documented in this encounter Administered Medications Inactive Administered Medications - up to 3 most recent administrations Medication Order MAR Action Action Date Dose Rate Site allopurinoL (ZYLOPRIM) tablet 200 mg 200 mg, oral, Daily, First dose on Thu05/26/25 at 0910, Until Discontinued Given 05/26/2025 9:09 AM EDT 200 mg hydrALAZINE (APRESOLINE) tablet 50 mg 50 mg, oral, Every 12 hours, First dose on Thu05/26/25 at 0910, Until Discontinued, Hold for SBP less than 90 mmHg. Given 05/26/2025 9:09 AM EDT 50 mg simvastatin (ZOCOR) tablet 20 mg 20 mg, oral, Daily, First dose on Thu05/26/25 at 0910, Until Discontinued Given 05/26/2025 9:08 AM EDT 20 mg documented in this encounter Active and Recently Administered Medications Times are shown in EDT. Scheduled Medication Order 05/24/2025 05/25/2025 05/26/2025 allopurinoL (ZYLOPRIM) tablet 200 mg 200 mg, oral, Daily, First dose on Thu05/26/25 at 0910, Until Discontinued 09 (Given - Provid er: Peggy Juarez RN) hydrALAZINE (APRESOLINE) tablet 50 mg 50 mg, oral, Every 12 hours, First dose on Thu05/26/25 at 0910, Until Discontinued, Hold for SBP less than 90 mmHg. 09 (Given - Provid er: Peggy Juarez RN) simvastatin (ZOCOR) tablet 20 mg 20 mg, oral, Daily, First dose on Thu05/26/25 at 0910, Until Discontinued 08 (Given - Provid er: Peggy Juarez RN) documented in this encounter Care Teams Alarm Adjuster Relationship Specialty Start Date End Date Kimani Cueva MD [phone] [address] PCP - General 05/26/25 documented as of this encounter
[2025-05-29 15:40] VITALS: BP 151/67; PULSE 66; RESP 18; TEMP 36.5; O2SAT 97; BMI 41.6
--- NOTE | 2025-05-29 15:41 | MHC.PC.OV ---
Vital Signs 05/29/25 15:40 Height 5 ft 7.44 in Weight 269 lb BMI 41.6 BP 151/67 H Blood Pressure Location Lt brachial Position Sitting Respiration 18 Pulse 66 Pulse Source Pulse Oximeter Temp 97.7 F Temp Source Temporal Artery Scan Pulse Oximetry (%) 97 Oxygen Delivery Method Room Air Intake Visit Reasons: Hypertension Claim Manager Required: No Accompanied by: Self / Same As Patient Allergies No Known Allergies (No Known Allergies*) Allergy (Verified 05/29/25 15:40) Tobacco use date assessed: 05/16/25 Dental Screening Dental Screen Date: 05/16/25 [facility] Medical History Elevated cholesterol Arthritis Back pain Kidney stones Gout HTN (hypertension) TONY on CPAP Surgical History Hx of arthroscopy of knee History of surgery on right wrist History of cystoscopy History of lithotripsy History of left hip replacement History of partial nephrectomy Hx of exploratory laparotomy Hx of colonoscopy (~01/23/21) Family History Mother No problems noted. Father No problems noted. Social History Housing: House Are you a primary certified caregiver to a significant other at home: No Do you presently have visiting nurse or other home services: No Patient Tobacco Use Status: Former Tobacco user service: No Current occupational status: employed Cognitive needs: No Hearing needs: No Vision needs: Yes (rx glasses) Questionnaire PHQ-9 Over the last 2 weeks, how often have you been bothered by any of the following problems? 1. Little interest or pleasure in doing things: not at all 2. Feeling down, depressed, or hopeless: not at all 3. Trouble falling or staying asleep, or sleeping too much: not at all 4. Feeling tired or having little energy: not at all 5. Poor appetite or overeating: not at all 6. Feeling bad about yourself - or that you are a failure or have let yourself or your family down: not at all 7. Trouble concentrating on things, such as reading the newspaper or watching television: not at all 8. Moving or speaking so slowly that other people could have noticed. Or the opposite - being so fidgety or restless that you have been moving around a lot more than usual: not at all 9. Thoughts that you would be better off or of hurting yourself in some way: not at all Total score: 0 Source: Developed by Drs. Jd Lebron, Jaclyn Cam, Lamine Clark and colleagues, with an educational xochitl from [employer]. Thrive Questionnaire Date Thrive assessed: 05/16/25 I am a: Patient What is your living situation today?: I have a steady place to live Within the past 12 months, did the food you bought not last and you didn't have the money to get more?: Never true Within the past 12 months, did you worry whether your food would run out before you got money to buy more?: Never true Do you have trouble paying for medicines?: No Do you have trouble getting transportation to medical appointments?: No Do you have trouble paying your heating and electricity bill?: No Do you have trouble taking care of your child, family member or friend?: No Do you have trouble with day-to-day activities such as bathing, preparing meals, shopping, managing finances, etc.?: No Are you currently unemployed and looking for a job?: No Are you interested in more education?: Yes Please select the resources that you would like help with: Education and None THRIVE Score: 0 AUDIT C Alcohol Use Questionnaire (AUDIT-C) 1. How often do you have a drink containing alcohol?: 2-3 times a week 3. How often do you have six or more drinks on one occasion?: Never Total Score: 3 SILVIA-7 AMB Questionnaire SILVIA-7 Date SILVIA - 7 assessed: 05/16/25 Feeling nervous, anxious, or on edge: 0 = Not at all Not being able to stop or control worryin = Not at all Worrying too much about different things: 0 = Not at all Trouble relaxin = Not at all Being so restless that it is hard to sit still: 0 = Not at all Becoming easily annoyed or irritable: 0 = Not at all Feeling afraid as if something awful might happen: 0 = Not at all Total SILVIA-7 score (0-4 normal; 5-9 mild; 10-14 moderate; 15-21 severe): 0 Source: Developed by Drs. Jd Lebron, Jaclyn Cam, Lamine Clark and colleagues, with an educational xochitl from [employer]. Physical exam (Primary Care) Vital Signs: Last Vital Signs Temp 97.7 F 05/29/25 15:40 Pulse 66 05/29/25 15:40 Resp 18 05/29/25 15:40 BP 151/67 H 05/29/25 15:40 Pulse Ox 97 05/29/25 15:40 Oxygen Delivery Method Room Air 05/29/25 15:40 BMI result Body Mass Index 41.6 Tobacco/Smoking Status: Tobacco use Status Tobacco use date assessed 05/16/25 05/29/25 15:41 Patient Tobacco Use Status Former Tobacco user 05/29/25 15:41 PHQ-9: PHQ-9 Score PHQ-9: Total score 0 05/29/25 15:41 Thrive Assessment: Date of Thrive Assessment Date Thrive assessed 05/16/25 05/29/25 15:41 Coding Level of Care Code Est Pt Level 4 (05239) Diagnoses Angioedema T78.3XXA HTN (hypertension) I10 Assessment & Plan Assessment & Plan (1) Angioedema: Code(s): T78.3XXA - Angioneurotic edema, initial encounter Plan: Stable, allergy appt given (2) HTN (hypertension): Code(s): I10 - Essential (primary) hypertension Category: Medical Plan: History of Present Illness - The patient is a 70-year-old male presenting for follow-up after a recent hospitalization for a severe reaction and to adjust his blood pressure medications. - He was seen at an urgent care on 05/22 for a tick bite and was started on doxycycline. - On 05/25, he awoke at 1:30 a.m. with sublingual swelling and swollen glands. - The swelling initially seemed to subside, but in the early afternoon, he began to have difficulty breathing and swallowing, and he used his CPAP to keep his airway open. - His called 911, and he was taken to [facility], where he was treated for anaphylaxis with 2-3 epinephrine shots. - There was concern for angioedema secondary to his lisinopril use. - He was transferred from the [place] ED to the [facility] ED due to the lack of ENT and coal cutter services at [place]. - At [facility], he was evaluated by ENT, who performed two scopes and noted residual edema. - He was not admitted and was discharged from the ED. - His lisinopril and doxycycline were discontinued, and he was started on prednisone and Augmentin. - Regarding his hypertension, his blood pressure was 168/73 mmHg at his last visit on 05/16 and was 186/90 mmHg in the ED. - He is currently taking Bystolic 20 mg daily, hydralazine 50 mg twice daily, and doxazosin 4 mg daily. - He has a history of stage 3 chronic kidney disease, which has improved with GLP-1 agonists. - He has no known allergies. - At his last visit, his Mounjaro dose was increased for weight loss, and he has taken one dose of the new strength. - He reports he does not feel back to his baseline since the event. Social History - Diet: The patient reports trying to avoid carbohydrates and focuses on eating proteins and vegetables. - Weight Management: He is taking Mounjaro for weight loss and notes it has definitely reduced his food intake. - Functional Status: The patient drove himself to the appointment and reports no issues driving, though he states he does not feel quite myself yet. Review of Systems - General: Reports feeling unwell and not back to his baseline. - HEENT: Reports a recent history of sublingual swelling and swollen glands in the neck. - Throat: Reports a recent history of difficulty swallowing and sore throat. - Respiratory: Reports a recent episode of dyspnea. - Neurological: Denies feeling lightheaded. Physical Exam General: Cooperative and healthy appearing Nutritional Appearance: Well nourished Orientation/consciousness: Patient oriented x3 Limitations: No limitations Head: Normal to inspection General: Appearance normal, both eyes and all related structures Neck: Normal visual inspection Chest: Normal palpation of entire chest wall Respiratory: Patient reports difficulty breathing and episodes of angioedema, currently using CPAP to maintain airway patency. ormal respiratory effort Neurology: Patient oriented x3, but reports not feeling quite at baseline. Results - Nasopharyngoscopy: The patient underwent scoping twice by ENT in the [facility] ED, which revealed residual edema. - Blood pressure monitoring: Blood pressure in the [facility] ED was 186/90 mmHg. - Labs: The patient mentions his BUN and creatinine were previously high but have improved with semaglutide and tirzepatide. Plan - Hypertension: Increase hydralazine to 50 mg three times a day, starting today. - Hypertension: The patient will monitor his blood pressure once or twice daily at home and send the readings via the patient portal. - Hypertension: If blood pressure is not controlled with the increased hydralazine dose, a calcium channel abigail will be considered as the next step. - Weight Management: Continue Mounjaro at the recently increased dose and monitor for effect. - Weight Management: Patient encouraged to continue dietary efforts focusing on low carbohydrates, and to notify the provider via portal if he experiences weight gain. - Referrals: A referral will be placed for the patient to see a wood grinder operator for management of his complex hypertension. - Referrals: A referral will be placed for the patient to see an coal cutter for evaluation of his recent suspected allergic reaction/angioedema. - Follow-up: The patient will follow up as regularly scheduled. Discussion Notes I discussed with the patient that while angioedema from lisinopril was a concern, I believe his symptoms were more likely due to a local allergic reaction causing his uvula to swell. However, I agreed that it was prudent to stop the ANDREA inhibitor and that we would not restart it. We discussed the plan for his blood pressure management, which will start with increasing his hydralazine to three times a day. I advised him to monitor his blood pressure at home and report the readings via the portal. If this is not sufficient, the next step would be to add a calcium channel abigail, and I informed him of the potential for foot swelling with this medication class. I reiterated the importance of weight loss in managing his blood pressure. I agreed to his reasonable request to place referrals to both a wood grinder operator and an coal cutter. Patient Instructions - Starting today, increase your hydralazine medication to take it three times per day. - Please check your blood pressure at home once or twice a day, write down the numbers, and send them to us through the online patient portal. - If you notice that you are gaining weight, please send us a message on the portal. - We discussed adding a new type of blood pressure medicine called a calcium channel abigail if the current plan doesn't work. - Be aware that this type of medicine can sometimes cause swelling in the feet. - We will set up referrals for you to see a marine habitat resource specialist (wood grinder operator) and an family resource specialist. - Please continue with your follow-up appointments as scheduled. Orders: Referrals Allergy & Immunology Referral T78.3XXA - Angioneurotic edema, initial encounter Cardiology Referral I10 - Essential (primary) hypertension
--- OUTSIDE RECORDS SUMMARY | 2025-05-29 16:41 | XMS_ITS | Encounter Summary ---
Author Organization [facility] Address [address] [place] [address] [place] [address] Phone Care Team Providers Care Information Security Engineer Name Role Phone Fabio De La Garza MD Primary Care Provider [phone] Encounter Details Date Type Department Care Team (Late st Contact Info) Description 03/21/2023 Procedure Pass [facility] Imaging - [place] [address] [place] [address] Social History Tobacco Use Types Packs/Day Years [...] 10:39 PM EDT Marissa Sandoval RN * [place] Suicide Severity Rating Scale (Screener/Recent Self-Report) Question [...] on filedocumented in this encounter Care Teams Information Security Engineer Relationship Specialty Start Date End Date Fabio De La Garza MD [address] [place] [id number] PCP - General Internal Medicine 10/08/17 documented as of this encounter Additional Source Comments The information contained in this document represents components of the legal health record. It is not the complete legal health record.[facility]
--- OUTSIDE RECORDS SUMMARY | 2025-05-29 16:41 | XMS_ITS | Data Portability ---
Author Organization [facility], OFFICE Address [address] [facility], [facility] [address] [place] [id number] Assessment Encounter Date Assessment Date Assessment LastModified [...] Singh MD [address], [place], [address], [place] - Comp-Assistd and Rcnstrctive Surgry 08/12/2017 17:33:36 General Surgery completed Gera Singh MD [address], [place], [address], [place] - Comp-Assistd and Rcnstrctive Surgry 08/12/2017 17:34:06 Knee Surgery completed Gera Singh MD [address], [place], [address], [place] - Comp-Assistd and Rcnstrctive Surgry 08/12/2017 17:34:25 Hip Surgery completed Gera Singh MD [address], [place], [address], [place] - Comp-Assistd and Rcnstrctive Surgry 10/26/2017 [...] Updated DateTime 08/12/2017 167.64 cm 38.7 kg/m2 877936.17 g 166/84 mm[Hg] Alicia Jones [place] - Comp-Assistd and Rcnstrctive Surgry 08/12/2017 16:31:54 Date Recorded Body height Body mass index (BMI) Body weight Systolic And Diastolic Provider Name and Address Organization Details Last Updated DateTime 08/17/2024 167.64 cm 41.2 kg/m2 121731.05 g 148/86 mm[Hg] Aliica Jones [place] - Comp-Assistd and Rcnstrctive Surgry 08/17/2024 13:24:12 Date Recorded Body height Body mass index (BMI) Body weight Systolic And Diastolic Provider Name and Address Organization Details Last Updated DateTime 10/26/2017 167.64 cm 39.2 kg/m2 522041.95 g 150/73 mm[Hg] Alicia Jones [place] - Comp-Assistd and Rcnstrctive Surgry 10/26/2017 13:11:40 Date Recorded Body height Body mass index (BMI) Body weight Provider Name and Address Organization Details Last Updated DateTime 11/23/2017 167.64 cm 39.5 kg/m2 882335.13 g Alicia Jones [place] - Comp-Assistd and Rcnstrctive Surgry 11/23/2017 12:07:21 Social History Question Answer Notes LastModified by Organizat ion Details LastModified Time Tobacco Smoking Status Former Smoker Gera Singh MD [address] [place] [address],[facility] [address], [place], [address], [place] - Comp-Assistd and Rcnstrctive Surgry 08/12/2017 17:32:27 What Was The Date Of Your Most Recent Tobacco Screening? 04/11/2024 [email or web address] Information not available 04/11/2024 Has Tobacco Cessation Counseling Been Provided? No [email or web address] Information not available 04/11/2024 Sex: Unknown Functional Status Question Answer Note LastModified by Organization D etails LastModified Time Do you or have you ever used any other forms of tobacco or nicotine? No [email or web address] Information not available 04/11/2024 Are you able to care for yourself independently? Yes [email or web address] Information not available 04/11/2024 Mental Status None recorded. Family History Nothing Reported. Medical History Condition Response Heart Problems N Coronary Artery Disease N Anxiety/Depression N Gout N Blood Transfusion N Hernia N Migraines N Thyroid Problems N COPD N Pacemaker N Anemia N Ulcers N Heart Attack ([place]) N Diabetes N Bleeding Disorder N Orthotics [...] ICD10 Code Diagnosis IMO Codes Diagnosis Note [id number] Gera Singh MD OFFICE [address] [address] 08/12/2017 15:36:56 08/23/2017 15:09:43 [id number] Gera Singh MD OFFICE [address] [facility] [address] [address] 10/26/2017 12:18:58 10/26/2017 15:39:01 [id number] Gera Singh MD OFFICE [address] [facility] [address] [address] 11/23/2017 11:58:03 11/24/2017 17:00:49 [id number] Gera Singh MD [facility] [address] [place] [address] 04/11/2024 07:51:20 05/11/2024 16:35:13 [id number] Gera Singh MD OFFICE [address] [facility] [address] [address] 08/17/2024 12:40:59 08/24/2024 09:32:18 Health Concerns Section Related Observation LastModified by Organization Detai ls LastModified Time None Recorded Concern Status LastModified by Organization Details LastModified Time None Recorded Advance Directives Directive None Recorded Payers Insurance Date Sequence Insurance Name Policy Number Policy Montanez Covered Member ID Montanez Member ID Guarantor Name 08/24/2024 2 [facility] INDEMNITY PLAN (INDEMNITY) [id number] Espinoza Burrows [id number] Espinoza Burrows 08/03/2024 2 [facility] INDEMNITY PLAN (INDEMNITY) Espinoza Burrows 08/14/2024 1 MEDICARE [place]: [facility] [employer] Espinoza Burrows [id number] Espinoza Burrows Notes Date Note Type [...] noted in the HPI Gera Singh MD [address] [place] [address],[facility] [address], [place], [address], [place] - Comp-Assistd and Rcnstrctive Surgry 08/12/2017 [...] (active hip flexion).ROS as noted in the [facility] Gera Singh MD [address],[facility] [address], [place], [address], [place] - Comp-Assistd and Rcnstrctive Surgry 10/26/2017 [...] patient reportshelped significantly.ROS as noted in the [facility] Gera Singh MD [address],[facility] [address], [place], [address], [place] - Comp-Assistd and Rcnstrctive Surgry 11/23/2017 [...] the HPI Gera Singh MD [address],[facility] [address], [place], [address], [place] - Comp-Assistd and Rcnstrctive Surgry 04/11/2024 [...] the HPI Gera Singh MD [address],[facility] [address], [place], [address], [place] - Comp-Assistd and Rcnstrctive Surgry 08/17/2024 15:06:14
--- OUTSIDE RECORDS SUMMARY | 2025-05-29 16:41 | XMS_ITS | Clinical Summary ---
Author Organization [facility] Address [address] [place] [address] Care Team Providers Care Child Care Specialist Name Role Phone Kimani Cueva MD Primary Care Provider [phone] Allergies No known active allergies Medications methylPREDNISol one (MEDROL DOSEPACK) 4 mg tablet follow package directions 1 tablet 5 Active amoxicillin-cla vulanate (AUGMENTIN) 875-125 mg tablet Take 1 tablet (875 mg total) by mouth every 12 hours for 5 days. 10 tablet 5 05/31/20 25 Active Encounters Date Type Department Care Team Description 05/26/2025 2:30 AM EDT - 05/26/2025 2:13 PM EDT Emergency [facility] Emergency Department [address] [place] [address] Ranjan Bolden MD Facial swelling (Primary Dx) Discharge Disposition: Home or Self Care () 05/25/2025 Orders Only External Imaging [address] [place] [address] Radiology, External from Last 3 Months Social History Tobacco Use Types Packs/Day Years Used Date Smoking Tobacco: Never Assessed Sex and Gender Information Value Date Recorded Sex Assigned at Male 05/26/2025 2:28 AM EDT Legal Sex Male 1:16 AM EDT Gender Identity Male 05/26/2025 2:28 AM EDT Sexual Orientation Not on file Last Filed [...] Mass Index 41.97 05/26/2025 2:40 AM EDT Plan of Treatment Health Maintenance Due Date Last Done Comments Cologuard 1955 Colon Cancer Screening 1955 Colonoscopy 1955 FOBT / Fit Test 1955 Hepatitis C Screening 1955 Sigmoidoscopy 1955 Medicare AWV 1954 Alcohol/Substance Use Screening 07/27/2024 Depression Screening and Follow-Up 07/27/2024 Health Care Proxy Review 07/27/2024 Social Drivers of Health Annual Screening 07/27/2024 Zoster Vaccines (2 of 2) 08/03/2024 06/08/2024 COVID-19 Vaccine ( season) 2025 04/13/2025, 04/07/2024, 11/25/2023, Additional history exists DTaP,Tdap,and Td Vaccines (2 - Td or Tdap) 02/22/2030 02/23/2020 Pneumococcal Vaccine: 50+ Years Completed 04/14/2023 RSV Vaccine (60+ years old and patients) Completed 05/07/2023 Influenza Vaccine Completed 04/13/2025, , 04/14/2023, Additional history exists Hepatitis B Vaccines Aged Out No long er eligible based on patient's age to complete this topic Procedures * Due to [place] state law, this organization might not be sharing negative HIV tests. Procedure Name Priority Date/Time Associated Diagnosis Comments BASIC METABOLIC PANEL STAT 05/26/2025 5:01 AM EDT CBC AUTO DIFFERENTIAL STAT 05/26/2025 5:01 AM EDT AMB EXTERNAL CT SOFT TISSUE NECK, OUTSIDE RESULT 05/25/2025 from Last 3 Months Results * Due to [place] state law, this organization might not be sharing negative HIV tests. * (ABNORMAL) CBC Auto Differential (05/26/2025 5:01 AM EDT) WBC 10.4 3.8 - 10.8 10*3/uL 05/26/2025 5:22 AM EDT [facility] RBC 3.75(L) 4.20 - 5.80 10*6/uL 05/26/2025 5:22 AM EDT [facility] Hemoglobin 12.0(L) 13.2 - 17.1 g/dL 05/26/2025 5:22 AM EDT [facility] Hematocrit 35.5(L) 38.5 - 50.0 % 05/26/2025 5:22 AM EDT [facility] MCV 94.7 80.0 - 100.0 fL 05/26/2025 5:22 AM EDT [facility] MCH 32.0 27.0 - 33.0 pg 05/26/2025 5:22 AM EDT [facility] MCHC 33.8 32.0 - 36.0 g/dL 05/26/2025 5:22 AM EDT [facility] RDW 13.2 11.0 - 15.0 % 05/26/2025 5:22 AM EDT [facility] Platelets 282 140 - 400 10*3/uL 05/26/2025 5:22 AM EDT [facility] MPV 10.7 7.5 - 12.5 fL 05/26/2025 5:22 AM EDT [facility] Neutrophil % 86.0 % 05/26/2025 5:22 AM EDT [facility] Immature Grans % 1.0(H) 0.0 - 0.9 % 05/26/2025 5:22 AM EDT [facility] Lymphocyte % 12.0 % 05/26/2025 5:22 AM EDT [facility] Monocyte % 0.8 % 05/26/2025 5:22 AM EDT [facility] Eosinophil % 0.0 % 05/26/2025 5:22 AM EDT [facility] Basophil % 0.2 % 05/26/2025 5:22 AM EDT [facility] Neutrophil # 8.99(H) 1.50 - 7.80 10*3/uL 05/26/2025 5:22 AM EDT [facility] Immature Grans # 0.10(H) <=0.03 10*3/uL 05/26/2025 5:22 AM EDT [facility] Lymphocyte # 1.30 0.85 - 3.90 10*3/uL 05/26/2025 5:22 AM EDT [facility] Monocyte # 0.10(L) 0.20 - 0.95 10*3/uL 05/26/2025 5:22 AM EDT [facility] Eosinophil # <0.03 0.02 - 0.50 10*3/uL 05/26/2025 5:22 AM EDT [facility] Basophil # <0.03 0.00 - 0.20 10*3/uL 05/26/2025 5:22 AM EDT [facility] nRBC % 0.0 /100 WBCs 05/26/2025 5:22 AM EDT [facility] nRBC # <0.01 <0.01 10*3/uL 05/26/2025 5:22 AM EDT [facility] Blood Structure of peripheral vein / Unknown Venipuncture / Unknown 05/26/2025 5:01 AM EDT 05/26/2025 5:13 AM EDT us Ranjan Bolden MD LAB BLOOD ORDERABLES Final Result [facility] [address] [place] [address], * (ABNORMAL) BMP - Basic Metabolic Panel (05/26/2025 5:01 AM EDT) NA 140 135 - 145 mmol/L 05/26/2025 5:48 AM EDT [facility] K 4.8 3.5 - 5.3 mmol/L 05/26/2025 5:48 AM EDT [facility] Cl 109 97 - 110 mmol/L 05/26/2025 5:48 AM EDT [facility] CO2 19(L) 22 - 32 mmol/L 05/26/2025 5:48 AM EDT [facility] BUN 28(H) 7 - 23 mg/dL 05/26/2025 5:48 AM EDT [facility] Creatinine 1.14 0.60 - 1.30 mg/dL 05/26/2025 5:48 AM EDT [facility] Glucose 154(H) 65 - 99 mg/dL 05/26/2025 5:48 AM EDT [facility] Calcium 8.7 8.6 - 10.5 mg/dL 05/26/2025 5:48 AM EDT [facility] Anion Gap 12 5 - 15 05/26/2025 5:48 AM EDT [facility] eGFR 68 >=60 mL/min/1. 73m2 05/26/2025 5:48 AM EDT [facility] Comment:The estimated glomer ular [...] Bolden MD LAB BLOOD ORDERABLES Final Result [facility] [address] [place] [address], * CT Soft Tissue Neck, Outside Result (05/25/2025) Anatomical Region Laterality Modality Other 05/25/2025 us Onbase Scan Christel AMB EXTERNAL RESULT PROCEDURE S Final Result from Last 3 Months Insurance MEDICARE [facility] Care Teams Child Care Specialist Relationship Specialty Start Date End Date Kimani Cueva MD [phone] [facility] [address] [place] [address] PCP - General 05/26/25
--- OUTSIDE RECORDS SUMMARY | 2025-05-29 16:41 | XMS_ITS | Encounter Summary ---
Author Organization [facility] Address [address] [place] [address] [place] [address] Phone Care Team Providers Care Administrative Volunteer Name Role Phone Fabio De La Garza MD Primary Care Provider [phone] Encounter Details Date Type Department Care Team (Late st Contact Info) Description 03/21/2023 Procedure Pass [facility] Imaging - CT [address] [place] [address] Social History Tobacco Use Types Packs/Day Years [...] 10:39 PM EDT Marissa Sandoval RN * [place] Suicide Severity Rating Scale (Screener/Recent Self-Report) Question [...] on filedocumented in this encounter Care Teams Administrative Volunteer Relationship Specialty Start Date End Date Fabio De La Garza MD [address] [place] [address] PCP - General Internal Medicine 10/08/17 documented as of this encounter Additional Source Comments The information contained in this document represents components of the legal health record. It is not the complete legal health record.[facility]
--- OUTSIDE RECORDS SUMMARY | 2025-05-29 16:41 | XMS_ITS | Patient Health Record ---
Author Organization [facility] Address [address] [place] [address] Care Team Providers Care Incoming Inspector Name Role Phone JOEYCRYSTALFLACA Primary Care Provider Jd Mijares Unavailable [phone] Reason For Referral No Information Medications Medication [...] Problem Screening for malignant neoplasm of colon (669310595) Encounter for screening for malignant neoplasm of colon (Z12.11) Active confirmed Problem History of adenomatous polyp of colon (486829494) History of adenomatous polyp of colon (Z86.010) Active confirmed Problem Screening for malignant neoplasm of rectum (800076583) Encounter for screening for malignant neoplasm of rectum (Z12.12) Active confirmed Problem Preprocedural examination (257480230601726) Preprocedural examination (Z01.818) Active confirmed Problem Long-term current use of antiplatelet drug (005670635034227) Long-term use of aspirin therapy (Z79.82) Active confirmed Problem History of adenomatous polyp of colon (834549990) Hx of adenomatous colonic polyps (Z86.010) Active confirmed Problem Diverticulosis of sigmoid colon (752658280) Diverticulosis of sigmoid colon (K57.30) Active confirmed Problem Long-term current use of antibiotic (338934328) Need for prophylactic antibiotic (Z79.2) Active confirmed Plan Of Treatment Future Test Test Name Order Date COLONOSCOPY 08/21/2015 COLONOSCOPY 12/07/2020 Insurance Providers Payer Name Payer Address Payer Phone Subscriber Number Group Number Insured Name Patient Relationship to Insured Coverage Start Date Coverage End Date MEDICARE OF [place] [address] [place] [address] [id number] VIRY BURROWS Self - patient is the insured [facility] [employer] [address] [place] [address] [id number] VIRY BURROWS Self - patient is the [...]
--- OUTSIDE RECORDS SUMMARY | 2025-05-29 16:41 | XMS_ITS | Encounter Summary ---
Author Organization [facility] Address [address] [place] [address] [place] [address] Phone Care Team Providers Care Dude Ranch Manager Name Role Phone Fabio De La Garza MD Primary Care Provider [phone] Reason for Referral * Physical Therapy (Routine) - Closed Specialty Diagnoses / Procedures Referred By Tang barker Referred To Contact Physical Therapy Diagnoses Encounter for rehabilitation Gera Singh MD Phone: tel: fax: [facility] [address] [place] [address] Phone: tel: Referral ID Status Reason Start Date Expiration Date Visits Re quested Visits Authorized [id number] Closed 11/24/2017 11/24/2018 1 1 Encounter Details Date Type Department Care Team (Latest Contact Info) Description 11/24/2017 Transcribe Orders [facility] [address] [place] [address] Gera Singh MD [address] [place] [id number] Encounter for rehabilitation (Primary Dx) Social [...] Diagnoses Orde r Schedule Ambulatory referral to [facility] Physical Therapy Outpatient Referral Routine Encounter for rehabilitation Ordered: 11/24/2017 documented as of this encounter Visit Diagnoses Diagnosis Encounter for rehabilitation- Primary documented in this encounter Additional Health Concerns Infection Onset Date Last Indicated Resolved Time CoV-Risk 05/22/2022 05/22/2022 06/02/2022 1:23 AM EST RSV 05/22/2022 05/22/2022 05/29/2022 1:23 AM EDT documented as of this encounter Care Teams Dude Ranch Manager Relationship Specialty Start Date End Date Fabio De La Garza MD [address] [place] [address] PCP - General Internal Medicine 10/08/17 documented as of this encounter Additional Source Comments The information contained in this document represents components of the legal health record. It is not the complete legal health record.[facility]
--- OUTSIDE RECORDS SUMMARY | 2025-05-29 16:41 | XMS_ITS | Clinical Summary ---
Author Organization [facility] Address [address] [facility] [address] [place] [address] Phone Care Team Providers Care Grinder Set Up Operator Name Role Phone Fabio De La Garza MD Primary Care Provider [phone] Allergies No known active allergies Medications simvastatin [...] Date/Time Associated Diagnosis Comments BASIC METABOLIC PANEL (BMP) STAT 03/21/2023 11:10 PM EDT from Last 3 Months or Most Recently Relevant to Health Maintenance Results * (ABNORMAL) Basic metabolic panel (03/21/2023 11:10 PM EDT) SODIUM 138 135 - 145 mmol/L [facility] CHLORIDE 102 98 - 107 mmol/L [facility] POTASSIUM 4.2 3.5 - 5.0 mmol/L [facility] CO2 25 24 - 32 mmol/L [facility] BUN 33(H) 8 - 25 mg/dL [facility] CREATININE 1.34 0.50 - 1.40 mg/dL [facility] GLUCOSE 155(H) 70 - 110 mg/dL [facility] CALCIUM 9.0 8.5 - 10.0 mg/dL [facility] EGFR 57(L) >59 mL/min/1.7 3m2 [facility] Comment:Estimated glomerular filtration rate calculated using the CKD-EPI refit equation. ANION GAP 11 3 - 15 mmol/L [facility] Blood 03/21/2023 11:1 0 PM EDT 03/21/2023 11:17 PM EDT us Ranjan Camacho MD LAB BLOOD BKR ORDERABLES F inal Result [address] [address] from Last 3 Months or Most Recently Relevant to Health Maintenance Insurance MEDICARE PART A & B Member Subscriber Plan / Payer (Ef fective 2018-Present) Name:Espinoza Sheldon Member ID:[id number] Relation to Subscriber:Self Name:Espinoza Sheldon Subscriber ID:[id number] Payer ID:[id number] Group ID:Not on file Type:Medicare Address: [facility] [employer] [facility] [address] [facility] [address] [facility] MEDICARE SUPPLEMENT MEDICARE PART A & B [facility] MEDICARE SUPPLEMENT MEDICARE PART A & B [employer] MEDICARE SUPPLEMENT Member Subscriber Plan / Payer ( fective 2018-Present) Name:Espinoza Sheldon Relation to Subscriber:Spouse Name:LULU SHELDON Date of :1952 (Home) Address: [address] [place] [address] Payer ID:[id number] (NAIC) Type:[employer] Address: [address] [address] MEDICARE PART A & B [employer] MEDICARE SUPPLEMENT MEDICARE PART A & B [facility] MEDICARE SUPPLEMENT MEDICARE PART A & B [employer] MEDICARE SUPPLEMENT MEDICARE PART A & B [employer] MEDICARE SUPPLEMENT MEDICARE PART A & B [facility] MEDICARE SUPPLEMENT MEDICARE PART A & B [facility] MEDICARE SUPPLEMENT Care Teams Grinder Set Up Operator Relationship Specialty Start Date End Date Fabio De La Garza MD [address] [place] [address] PCP - General Internal Medicine 10/08/17 Additional Source Comments The information contained in this document represents components of the legal health record. It is not the complete legal health record.[facility]
--- OUTSIDE RECORDS SUMMARY | 2025-05-29 16:41 | XMS_ITS | Encounter Summary ---
Author Organization [facility] Address [address] [place] [address] Care Team Providers Care Commercial Green Building Designer Name Role Phone Kimani Cueva MD Primary Care Provider [phone] Encounter Details Date Type Department Care Team (Late st Contact Info) Description 05/25/2025 Orders Only External Imaging [address] [place] [address] Radiology, External [address] [place] [address] Social History Tobacco Use Types Packs/Day Years Used Date Smoking Tobacco: Never Assessed Sex and Gender Information Value Date Recorded Sex Assigned at Male 05/26/2025 2:28 AM EDT Legal Sex Male 1:16 AM EDT Gender Identity Male 05/26/2025 2:28 AM EDT Sexual Orientation Not on file documented as of this encounter Plan of Treatment Pending Results Name Type Priority Associated Diagnoses Date /Time CT NECK SOFT TISSUE COMPARISON IMAGES (OUTSIDE STUDY) Imaging Routine 05/26/2025 12:49 PM EDT Scheduled Orders Name Type Priority Associated Diagnoses Orde r Schedule CT NECK SOFT TISSUE COMPARISON IMAGES (OUTSIDE STUDY) Imaging Routine [address] arting 05/26/2025 until 07/26/2026 documented as of this encounter Visit Diagnoses Not on filedocumented in this encounter Care Teams Commercial Green Building Designer Relationship Specialty Start Date End Date Kimani Cueva MD [phone] [address] PCP - General 05/26/25 documented as of this encounter
--- OUTSIDE RECORDS SUMMARY | 2025-05-29 16:41 | XMS_ITS | Patient Health Record ---
Author Organization [facility] Address [address] [place] [address] Care Team Providers Care Tribal Delegate Name Role Phone Dr. Indra Padron Unavailable [phone] Reason For Referral No Information Medications Medication [...] Start Date Coverage End Date [id number] Markos Jerrysteve Self - patient is the insured Medical (General) History Medical History History ICD Code kidney stones Surgical History Surgery Date(Month/Year) Lt kidney stone removal 1982
--- OUTSIDE RECORDS SUMMARY | 2025-05-29 16:41 | XMS_ITS | Encounter Summary ---
Author Organization [facility] Address [address] [place] [address] Phone Care Team Providers Care Autocad Technician Name Role Phone Fabio De La Garza MD Primary Care Provider [phone] Reason for Referral * Physical Therapy (Routine) - Closed Specialty Diagnoses / Procedures Referred By Tang barker Referred To Contact Physical Therapy Diagnoses Encounter for rehabilitation Gera Singh MD Phone: tel: fax: [facility] [address] [place] [address] Phone: tel: fax: Referral ID Status Reason Start Date Expiration Date Visits Re quested Visits Authorized [id number] Closed 11/03/2017 02/05/2018 25 25 Encounter Details Date Type Department Care Team (Latest Contact Info) Description 10/27/2017 Transcribe Orders [facility] [address] [place] [address] Gera Singh MD [address] [place] [phone] Encounter for rehabilitation (Primary Dx) Social [...] Date/Time Associated Diagnosis Comments AMB REFERRAL TO [facility] PHYSICAL THERAPY Routine 11/03/2017 5:55 PM EDT Encounter for rehabilitation documented in this encounter Results * Ambulatory referral to [facility] Physical Therapy (11/03/2017 5:55 PM EDT) Gera Singh MD AMB [facility] REFERRALS Final Result documented in this encounter Visit Diagnoses Diagnosis Encounter for rehabilitation- Primary documented in this encounter Additional Health Concerns Infection Onset Date Last Indicated Resolved Time CoV-Risk 05/22/2022 05/22/2022 06/02/2022 1:23 AM EST RSV 05/22/2022 05/22/2022 05/29/2022 1:23 AM EDT documented as of this encounter Care Teams Autocad Technician Relationship Specialty Start Date End Date Fabio De La Garza MD [address] [place] [address] PCP - General Internal Medicine 10/08/17 documented as of this encounter Additional Source Comments The information contained in this document represents components of the legal health record. It is not the complete legal health record.[facility]
--- OUTSIDE RECORDS SUMMARY | 2025-05-29 16:41 | XMS_ITS | Clinical Summary ---
Author Organization 175 [facility] Address [address] [place] [address] Phone Care Team Providers Care Hospitality Job Titles Name Role Phone Andrzej Souza MD Primary Care Provider [phone]- [phone] Allergies No known active allergies Medications nebivoloL [...] microalbuminuria, without long-term current use of insulin ([facility] V24, [facility] V28) 12/30/2024 Overview (12/30/2024): Patient with known [...] left 12/30/2024 Overview (12/30/2024): Done over at [facility] 2018 Mild intermittent asthma without complication Overview (12/30/2024): Noted on record from nephrology Enlarged prostate 12/30/2024 Overview (12/30/2024): Noted on records from nephrology History of adenomatous polyp of colon 05/29/2022 Chronic kidney disease due to benign hypertensio n 01/02/2021 Primary hypertension 12/21/2020 Obesity 12/21/2020 Encounters Date Type Department Care Team Description 05/18/2025 9:45 AM EDT Treatment [facility] Occupational Therapy [address] [phone] Ihsan Connor, OT Acquired trigger finger of left ring finger (Primary Dx); Carpal tunnel syndrome, bilateral 05/11/2025 10:30 AM EDT Treatment [facility] Occupational Therapy [address] [place] [phone] Ihsan Connor, OT Carpal tunnel syndrome, bilateral (Primary Dx); Acquired trigger finger of left ring finger 05/09/2025 10:00 AM EDT Treatment [facility] Occupational Therapy [address] [place] [phone] Ihsan Connor, OT Carpal tunnel syndrome, bilateral (Primary Dx); Acquired trigger finger of left ring finger 05/03/2025 9:15 AM EDT Treatment [facility] Occupational Therapy [address] [place] [phone] Kristen Martin COTA/Ac Carpal tunnel syndrome, bilateral (Primary Dx); Acquired trigger finger of left ring finger 04/27/2025 9:30 AM EDT Evaluation [facility] Occupational Therapy [address] [place] [phone] Ihsan Connor, OT Acquired trigger finger of left ring finger (Primary Dx); Carpal tunnel syndrome, bilateral 04/27/2025 Plan of Care Documentation [facility] Occupational Therapy [address] [place] [phone] 04/11/2025 10:45 AM EDT Office Visit Orthopedic Surgery - [place] 175 [facility] [address] [place] [phone] Antonian Melendez MD Bilateral carpal tunnel syndrome (Primary Dx); Right carpal tunnel syndrome 03/16/2025 7:46 AM EDT Anesthesia Event [facility] Main OR [address] [place] [phone] Tristian Moore MD Spencer, Mark A, MD 03/16/2025 7:30 AM EDT - 03/16/2025 8:45 AM EDT Surgery [facility] OR [address] [place] [phone] Antonina Melendez MD ENDOSCOPIC RELEASE LEFT CARPAL TUNNEL [[id number] (CPT )] 03/16/2025 6:09 AM EDT - 03/16/2025 9:37 AM EDT Hospital Encounter [facility] OR [address] [place] [phone] Antonina Melendez MD Carpal tunnel syndrome of left wrist (Primary Dx) Discharge Disposition: Home or Self Care 02/27/[address] [facility] [facility] [address] [phone] Antonina Melendez MD from Last 3 Months Surgical History Surgery Date Site/Laterality Comments ORIF RADIUS & ULNA FRACTURES 07/27/1973 - 07/26/1974 Right radius OTHER SURGICAL HISTORY EXPLORATORY LAPAROTOMY BLADDER REPAIR BLADDER SURGERY LITHOTRIPSY KIDNEY STONE SURGERY HIP ARTHROPLASTY CARPAL TUNNEL RELEASE 03/16/2025 Left Left endoscopic carpal tunnel release Medical History Medical History Date Comments Hypertension Asthma OCCASIONAL Sleep apnea Diabetes mellitus ([facility] V24, [facility] V28) Chronic kidney disease History of transfusion [...] 07/18/2025 10:00 AM EST Consult Orthopedic Surgery [facility] [address] [phone] Antonina Melendez MD [address] [place] [phone] 08/02/2025 8:30 AM EST Hospital Encounter [facility] [address] [place] [phone] Antonina Melendez MD [address] [place] [phone] 08/02/2025 8:30 AM EST - 08/02/2025 10:15 AM EST Surgery [address] [phone] Antonina Melendez MD [address] [place] [phone] RELEASE CARPAL TUNNEL ENDOSCOPIC-RIGHT [[id number] (CPT )] 08/11/2025 9:00 AM EST Office Visit Orthopedic Surgery [address] [phone] Alicia Zamudio PA [address] [place] [phone] Scheduled Procedures Name Priority Associated Diagnoses Date/Ti [...] Procedure Name Priority Date/Time Associated Diagnosis Comments MT ENDOSCOPY WRIST SURGICAL WITH RELEASE TRANSVERSE CARPAL LIGAMENT 03/16/2025 7:46 AM EDT Carpal tunnel syndrome POCT GLUCOSE BLOOD Routine 03/16/2025 6: 29 AM EDT from Last 3 Months Results * (ABNORMAL) POCT Glucose, blood (03/16/2025 6:29 AM EDT) Glucose POCT 111(H) 70 - 100 mg/dL 03/16/2025 6:30 AM EDT [facility] Blood Capillary blood specimen / Unknown 03/16/2025 6:29 AM EDT 03/16/2025 6:31 AM EDT us Antonina Melendez MD LAB POINT OF CARE TE ST DOCKED DEVICE UNSOLICITED RESULTS Final Result [facility] [address] [place] [address], [place] [phone] from Last 3 Months Insurance MEDICARE [facility] Advance Directives * Full Code - Default [...] currently active code status orders. Care Teams Hospitality Job Titles Relationship Specialty Start Date End Date Andrzej Souza MD [facility] [address] [place] [address] [address] [facility] [id number] PCP - General Internal Medicine 03/16/25
== END 2025-05-29 16:19 | disposition home or self-care (01) ==
LOC: HO.HMCSH 15:28
PROVIDERS: PCP Internal Medicine; Visit Provider Internal Medicine
DX: T78.3XXA Angioneurotic edema, initial encounter (principal); I10 Essential (primary) hypertension

== ENCOUNTER → 2025-05-29 15:27 | Outpatient (BNVA) | payer MEDICARE, OTHER, SELFPAY | PROVIDERS: PCP Internal Medicine; Visit Provider Internal Medicine | DX: I10 Essential (primary) hypertension (principal); T78.3XXA Angioneurotic edema, initial encounter; Z87.891 Personal history of nicotine dependence | CPT/HCPCS: 99212 ==